=== PATIENT | female | born 1960 | race Caucasian/White ===

== ENCOUNTER → 2016-09-05 | Outpatient (CLI) | payer OTHER ==
--- NOTE | 2016-09-06 05:42 | REP ---
RIGHT OS CALCIS: TWO VIEWS. History: Pain in the right heel. Findings: Axial and lateral views demonstrate plantar and Achilles calcaneal spurring. No fracture is seen. No bony erosive change is seen. Impression: Heel spurring. No acute bony abnormality. Signed by Saran Ramos MD 09/06/2016 08:32 A
== END ==
LOC: M ED 17:15
PROVIDERS: ATTEND Physician Assistant
DX: M77.31 Calcaneal spur, right foot (principal)

== ENCOUNTER → 2019-02-16 | Outpatient (CLI) | payer MEDICARE, MEDICAID ==
[~2019-02-16] MED LIST: ALBU17IN INH; ASPI81TA52 PO; ATEN25TA PO; HYDR12CA PO; LEVO100T5 PO; LISI-1046 PO; MELO15TA28 PO; METF500T13 PO; PARO40TA2 PO; SIMV20TA2 PO; VITA-122 PO; VITA500T3 PO
[2019-02-16 13:15] LABS: BASO # 0.1 10^3/uL (0.0-0.2); BASO % 1.2 % (0.0-1.0); EOS # 0.5 10^3/uL (0.0-0.50); EOS % 4.3 % (0.0-3.0); HEMOGLOBIN 12.6 g/dl (12.0-15.5); LYMPH # 1.9 10^3/uL (1.5-4.5); LYMPH % 17.7 % (24.0-44.0); MEAN CORPUSCULAR HEMOGLOBIN 29.6 pg (27.0-33.0); MEAN CORPUSCULAR HGB CONC 32.3 g/dl (32.0-36.5); MEAN CORPUSCULAR VOLUME 91.8 fl (80.0-96.0); MONO # 1.1 10^3/uL (0.0-0.8); MONO % 10.5 % (0.0-5.0); NEUTROPHILS # 7.2 10^3/uL (1.8-7.7); NEUTROPHILS % 65.7 % (36.0-66.0); PLATELET COUNT, AUTOMATED 335 10^3/uL (150-450); RED BLOOD COUNT 4.25 10^6/uL (4.00-5.40); WHITE BLOOD COUNT 10.9 10^3/uL (4.0-10.0)
== END ==
LOC: M WUC 10:26
PROVIDERS: ATTEND Family Medicine
DX: D72.829 Elevated white blood cell count, unspecified (principal)

== ENCOUNTER → 2019-04-20 | Outpatient (CLI) | payer MEDICARE, MEDICAID ==
[~2019-04-20] MED LIST changes: +ASPI81TA85 PO; +CALC0.009 TOP; +CYAN500T8 PO; +PERC5TAB12 PO; +SILV50CR TOP; -SIMV20TA2 PO; +SIMV20TA22 PO; +TRAM50TA2 PO; +VENTAER INH; -VITA500T3 PO; +XARE10TA PO
[2019-04-20 08:29] LABS: HEMATOCRIT 36.8 % (36.0-47.0); MEAN CORPUSCULAR HGB CONC 32.6 g/dl (32.0-36.5); PLATELET COUNT, AUTOMATED 265 10^3/uL (150-450)
[2019-04-20 08:41] LABS: INR 0.98; PROTHROMBIN TIME 12.7 SECONDS (11.8-14.0)
--- NOTE | 2019-04-20 08:47 | REP ---
PA and lateral chest: There are no comparisons. The lung curtis are clear. The cardiac size is normal. The lalitha, mediastinum, and skeletal structures are unremarkable. Impression: Negative PA and lateral chest. Electronically Signed by Tato Menon MD 04/20/2019 08:38 A
[2019-04-20 08:51] LABS: ERYTHROCYTE SEDIMENTATION RATE 54 mm/hr (0-30)
[2019-04-20 08:55] LABS: ALBUMIN 3.7 GM/DL (3.2-5.2); ALT/SGPT 28 U/L (12-78); BILIRUBIN,TOTAL 0.5 MG/DL (0.2-1.0); BLOOD UREA NITROGEN 13 MG/DL (7-18); CALCIUM LEVEL 8.6 MG/DL (8.5-10.1); CARBON DIOXIDE LEVEL 31 MEQ/L (21-32); CHLORIDE LEVEL 103 MEQ/L (98-107); CREATININE FOR GFR 0.81 MG/DL (0.55-1.30); GLOMERULAR FILTRATION RATE > 60.0 (>51); GLUCOSE, FASTING 99 MG/DL (70-100); POTASSIUM SERUM 3.9 MEQ/L (3.5-5.1); SODIUM LEVEL 141 MEQ/L (136-145); TOTAL PROTEIN 7.3 GM/DL (6.4-8.2)
--- NOTE | 2019-04-20 09:18 | ECGEPIP ---
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
== END ==
LOC: M LAB 08:04
PROVIDERS: ATTEND Orthopaedic Surgery
DX: E11.9 Type 2 diabetes mellitus without complications (principal); E03.9 Hypothyroidism, unspecified

== ENCOUNTER 2019-05-14 09:15 | Inpatient (IN) | payer MEDICARE, MEDICAID ==
--- NOTE | 2019-05-02 17:47 | HPE ---
DATE OF ADMISSION: 05/14/2019 ATTENDING PHYSICIAN: Dr. Harsha Jones CHIEF COMPLAINT: Right knee pain and stiffness. HISTORY: Julia is a pleasant 58-year-old female with progressively worsening right knee pain and stiffness. She has failed to improve with conservative measures. She continues to have symptoms with weightbearing activities and activities of daily living. She has consented for an elective right total knee arthroplasty with Dr. Jones for her continued symptoms. Medical optimization pending with Dr. Jarod Baires. CURRENT MEDICATIONS: - tramadol one tablet every 12 hours as needed for pain - ProAir inhaler - lisinopril 2.5 mg daily - metformin 500 mg daily - atenolol 25 mg daily - hydrochlorothiazide 12.5 mg daily - levothyroxine 100 mcg daily - Paxil 40 mg daily - simvastatin 20 mg daily ALLERGIES: There are no known drug allergies. CHRONIC MEDICAL CONDITIONS: 1. Hypertension. 2. Hyperlipidemia. 3. Diabetes. 4. Asthma. 5. Hypothyroid. 6. Anxiety. 7. Depression. PAST SURGICAL HISTORY: None. SOCIAL HISTORY: The patient denies tobacco or alcohol use. REVIEW OF SYSTEMS: The patient denies fevers, chills, nausea, vomiting or diarrhea. She denies chest pain, shortness of breath, lightheadedness, dizziness or headaches. She denies any abdominal pain. She denies recent upper respiratory or urinary tract infection symptoms. She continues to have right knee pain with weightbearing activities and activities of daily living. PHYSICAL EXAMINATION: GENERAL: Well-nourished, well-developed female in no apparent distress. She is alert, oriented and cooperative. Mood and affect are appropriate. VITAL SIGNS: Height 5 feet, 2-1/4 inches. Weight 220.8 pounds. Temperature 97.8, blood pressure 122/64, heart rate 62, respirations 12. HEART: Regular rate and rhythm. LUNGS: Clear to auscultation bilaterally. ABDOMEN: Bowel sounds are present. Abdomen is soft and nontender to palpation. MUSCULOSKELETAL: Right knee reveals no erythema, edema or ecchymosis. There is quite a bit of tenderness to palpation along the medial joint line. The patient can extend knee to 5 degrees and flex to approximately 100 degrees. Right lower extremity strength is 5/5. No hip irritability elicited with range of motion testing. The patient's calf is soft, nontender to palpation with no palpable cords noted. She is neurovascularly intact distally. LABORATORY DATA: Chest x-ray: Negative PA and lateral chest. Right knee x-ray notable for end-stage degenerative changes. EKG: Sinus rhythm with possible left atrial enlargement and low QRS voltage in the precordial leads. Prothrombin time 12.7, INR 0.98. Complete blood count: ESR elevated at 54, WBCs 9, RBCs 4, hemoglobin 12, hematocrit 36.8, platelets 265. Comprehensive metabolic profile: Fasting glucose 99, BUN 13, creatinine 0.81, GFR greater than 60, sodium 141, potassium 3.9, chloride 103, carbon dioxide 31, anion gap decreased at 7, calcium 8.6, AST 23, ALT 28, alkaline phosphatase 82, total bilirubin 0.5, total protein 7.3, albumin 3.7, albumin-globulin ratio 1.03. IMPRESSION: Right knee degenerative arthritis with x-rays notable for end-stage degenerative changes. PLAN: The patient has consented for an elective right total knee arthroplasty with Dr. Jones for her continued symptoms. Medical optimization pending with Dr. Jarod Baires. MARK
[2019-05-14] VITALS (7 sets, daily range): BP systolic 115–122; BP diastolic 69–78
[~2019-05-14] VITALS: Ht 157.5 cm; Wt 98.8 kg
[~2019-05-14 09:15] MED LIST changes: +ACETAMINOPHEN 500 MG TAB PO ONE; -PERC5TAB12 PO; +SIMV20TA2 PO; -SIMV20TA22 PO; -XARE10TA PO; +ceFAZolin SOD 1 GM in D5W MINI-BAG PLUS 50 ML IV ONE
[2019-05-14] MEDS ORDERED: dexameTHASONE 10 MG/1 ML VIAL PRES.FREE (J1100) ONE (09:16)
[2019-05-14] MEDS ORDERED: ROPIvacaine 0.5% 30 ML INJECTION (J2795 PER 1MG) ONE (09:16)
[2019-05-14] MEDS ORDERED: LIDOCAINE 1% MDV 20ML VIAL ONE (09:16)
[2019-05-14] MEDS ORDERED: TRANEXAMIC ACID 100 MG/ML 10ML VIAL As Ordered ONE (11:15)
[2019-05-14] MEDS ORDERED: EPINEPHrine INJ 1 MG/ML 1ML AMP As Ordered ONE (11:16)
[2019-05-14] MEDS ORDERED: ceFAZolin 1GM INJ (J0690 PER 500MG) As Ordered ONE (11:16)
[2019-05-14] MEDS ORDERED: BUPIVACAINE LIPOSOME/PF 1.3% 20ML VIAL (13.3MG/ML)(EXPAREL)(C9290 PER1MG) As Ordered ONE (11:17)
[2019-05-14] MEDS ORDERED: BUPIVACAINE HCL 0.25% 10 ML VIAL As Ordered ONE (11:17)
[2019-05-14] MEDS ORDERED: fentaNYL 100 MCG/2 ML INJECTION (J3010) As Ordered ONE ×2 (11:22→12:52)
[2019-05-14] MEDS ORDERED: MIDAZOLAM INJ 2 MG/2 ML VIAL (J2250) As Ordered ONE ×2 (11:22→12:52)
[2019-05-14] MEDS ORDERED: fentaNYL 100 MCG/2 ML INJECTION (J3010) IV PRN ×2 (12:30→15:15)
[2019-05-14] MEDS ORDERED: MIDAZOLAM INJ 2 MG/2 ML VIAL (J2250) IV PRN (12:30)
[2019-05-14] MEDS ORDERED: PHENYLephrine HCL 500 MCG/5 ML (100MCG/ML) SYRINGE (J2370) As Ordered ONE (12:52)
[2019-05-14] MEDS ORDERED: PROPOFOL 200 MG/20 ML VIAL As Ordered ONE (12:52)
[2019-05-14] MEDS ORDERED: HYDROMORPHONE HCL 0.5 MG/ 0.5 ML SYRINGE (J1170 PER 1) IV PRN (15:15)
[2019-05-14] MEDS: LR 1,000 ML IV SCH (15:15)
[2019-05-14] MEDS ORDERED: PERCOCET 5MG/325MG TAB PO PRN (15:15)
[2019-05-14] MEDS ORDERED: ONDANSETRON 4MG/2ML VIAL (J2405) IV PRN (15:15)
[2019-05-14] MEDS ORDERED: ACETAMINOPHEN TAB 650MG DOSE (2X325MG) PO PRN (15:15)
[2019-05-14] MEDS ORDERED: LR 1,000 ML IV SCH (15:15)
[2019-05-14] MEDS ORDERED: FLEET ENEMA PR PRN (15:15)
--- NOTE | 2019-05-14 15:22 | REP ---
RIGHT KNEE, TWO VIEWS: Two views of the right knee are performed. Total knee prosthesis appears to be in good position. The structures are well aligned and intact. Metallic skin familia are seen anteriorly. Electronically Signed by Tato Zamudio MD 05/14/2019 04:24 P
[2019-05-14] MEDS: HYDROMORPHONE HCL 0.5 MG/ 0.5 ML SYRINGE (J1170 PER 1) IV PRN (20:51)
[2019-05-15] MEDS: HYDROMORPHONE HCL 0.5 MG/ 0.5 ML SYRINGE (J1170 PER 1) IV PRN ×2 (00:20→06:09)
[2019-05-15 02:00] VITALS: BP 133/80
[2019-05-15] MEDS: LR 1,000 ML IV SCH (03:45)
[2019-05-15 06:00] VITALS: BP 133/78
[2019-05-15] MEDS ORDERED: LEVOTHYROXINE 100MCG TABLET (0.1MG) PO SCH (06:00)
[2019-05-15] MEDS ORDERED: PERCOCET 5MG/325MG TAB PO PRN (06:15)
[2019-05-15] MEDS ORDERED: XARE10TA PO (06:19)
[2019-05-15] MEDS ORDERED: PERC5TAB12 PO (06:19)
[2019-05-15 06:35] LABS: HEMATOCRIT 33.6 % (36.0-47.0); HEMOGLOBIN 10.8 g/dl (12.0-15.5); MEAN CORPUSCULAR HEMOGLOBIN 29.7 pg (27.0-33.0); MEAN CORPUSCULAR HGB CONC 32.1 g/dl (32.0-36.5); MEAN CORPUSCULAR VOLUME 92.3 fl (80.0-96.0); PLATELET COUNT, AUTOMATED 229 10^3/uL (150-450); RED BLOOD COUNT 3.64 10^6/uL (4.00-5.40); WHITE BLOOD COUNT 12.4 10^3/uL (4.0-10.0)
[2019-05-15 06:53] LABS: BLOOD UREA NITROGEN 12 MG/DL (7-18); CALCIUM LEVEL 8.6 MG/DL (8.5-10.1); CARBON DIOXIDE LEVEL 30 MEQ/L (21-32); CHLORIDE LEVEL 104 MEQ/L (98-107); CREATININE FOR GFR 0.93 MG/DL (0.55-1.30); GLOMERULAR FILTRATION RATE > 60.0 (>51); GLUCOSE, FASTING 176 MG/DL (70-100); POTASSIUM SERUM 4.3 MEQ/L (3.5-5.1); SODIUM LEVEL 141 MEQ/L (136-145)
[2019-05-15] MEDS: PERCOCET 5MG/325MG TAB PO PRN ×2 (08:33→15:04)
[2019-05-15] MEDS ORDERED: MOM 30ML SUSPENSION UDC PO SCH (09:00)
[2019-05-15] MEDS ORDERED: LISINOPRIL *2.5 MG* TAB PO SCH (09:00)
[2019-05-15] MEDS ORDERED: SIMVASTATIN 20 MG TAB PO SCH (09:00)
[2019-05-15] MEDS ORDERED: CALCIPOTRIENE CREAM 0.005% 60GM TOP PRN (09:00)
[2019-05-15] MEDS ORDERED: hydroCHLOROthiazide 12.5 MG CAPSULE PO SCH (09:00)
[2019-05-15] MEDS ORDERED: CYANOCOBALAMIN 500 MCG TAB PO SCH (09:00)
[2019-05-15] MEDS ORDERED: MIRALAX *UNIT DOSE* 17GM PACKET PO SCH (09:00)
[2019-05-15] MEDS ORDERED: ATENOLOL 25 MG TAB PO SCH (09:00)
[2019-05-15] MEDS ORDERED: SILVER SULFADIAZINE 1% CR 50 GM JAR TOP PRN (09:00)
[2019-05-15] MEDS ORDERED: VITAMIN D 1,000 INTERNATIONAL UNITS TABLET PO SCH (09:00)
[2019-05-15] MEDS ORDERED: GLUCAGON FOR INJ 1 MG VIAL (J1610) SC PRN (09:00)
[2019-05-15] MEDS ORDERED: GLUCOSE 4 GM CHEW TABLET PO PRN (09:00)
[2019-05-15] MEDS ORDERED: PARoxetine 20 MG TAB PO SCH (09:00)
[2019-05-15] MEDS ORDERED: DEXTROSE 50% 50 ML SYRINGE IV PRN (09:00)
[2019-05-15] MEDS ORDERED: ALBUTEROL 90 MCG/ACT 8GM HFA INHALER INH PRN (09:00)
[2019-05-15 10:17] VITALS: BP 135/80
--- NOTE | 2019-05-15 11:03 | RO ---
DATE OF PROCEDURE: 05/14/2019 PREOPERATIVE DIAGNOSIS: Right knee degenerative arthritis. POSTOPERATIVE DIAGNOSIS: Right knee degenerative arthritis. PROCEDURE: Right total knee arthroplasty using a size 5 ATTUNE cruciate retaining femoral component with a size 4 tibial tray and 5 mm rotating platform polyethylene insert and a 32 mm polyethylene button. All the components were cemented. The prosthesis was made by [employer]. It was an ATTUNE knee. SURGEON: Gris Jones MD BAND PRESSER: Dianne Baires PA-C ANESTHESIA: Right femoral nerve block with a spinal. COMPLICATIONS: None. ESTIMATED BLOOD LOSS: 20 mL. SPECIMENS: Joint surface. PROCEDURE: Antibiotics were given intravenously preoperatively. Then a successful right femoral nerve block and then spinal anesthetic was induced. The tourniquet was placed on the right upper thigh and not inflated. The right lower extremity was carefully prepped and draped in the usual sterile fashion. The leg was elevated and after appropriate time out, the tourniquet was inflated to 250 mmHg. A longitudinal incision was made for a medial parapatellar approach to the knee. Bovie cautery was used to coagulate the crossing vessels. Subperiosteal dissection around the proximal, medial and lateral tibial plateaus was performed. The patella was everted and the knee was flexed. The anterior cruciate ligament (ACL) was debrided. Drill placed down the center of femoral canal, followed by the intramedullary arina, the distal femoral cutting jig set at 9 mm resection level at 5 degree valgus for a right knee. It was pinned into position and distal femoral cut was performed. AP sizing jig measured for a size 5. 3 degrees of external rotation were dialed in and then the 3 degree external rotation pins were placed followed by the four-in-one block, and then the anterior, posterior and chamfer cuts were performed taking great care to protect the surrounding soft tissues. The notch osteotomy was performed after setting the jib into position and then we exposed the proximal tibia. We used the extramedullary alignment jig to estimate being parallel to the mechanical axis, referenced off the medial tibial condyle at 4 mm resection level. The block was pinned in position and secondary check with the extramedullary arina confirmed we appeared to be parallel to the mechanical axis. Proximal tibial osteotomy was performed. We then used a lamina [place] k[place] maori medially to perform a completion lateral meniscectomy and debridement of the posterolateral osteophytes. I then placed the lamina ka[place] maori laterally and performed a completion medial meniscectomy and debridement of the posteromedial osteophytes. The spacer block was applied and it was a bit snug at 6 mm, both in flexion and in extension. Thus I did think that we could take an additional 2 mm from the proximal tibia given also that the initial cut was actually quite thin. Thus, we reapplied the block and took and additional 2 mm. The 6 mm spacer block fit nicely with good stability to varus valgus and AV stress testing. The proximal tibia was exposed and sized for a #4 tibial tray which was pinned into position followed by the reamer and broach, and the trial 6 mm insert was applied. Then the trial femoral component was applied. She was a bit snug in flexion however and I did release some of the PCL and then we elected to try the 5 mm insert, and that actually gave her better flexion and extension, still remaining with good stability to varus valgus stress testing both in flexion and in extension. Thus at this point, I held the knee in extension, everted the patella, and performed a patellar osteotomy and sized for a 32 button. The lug holes were drilled and the trial was placed. Patellofemoral tracking was anatomic. We drilled the lug holes for the femur. Then we removed all the trial components and then placed Exparel in the subperiosteal tissues of the distal femur and the proximal tibia. At this point, Miss Dianne Baires mixed the cement on the back table as I prepared the bony surfaces for cementing with a copious amount of pulsatile lavage irrigant solution. Once all of the bony surfaces were thoroughly dried we cemented the tibial tray and removed excess cement, placed the tibial polyethylene, and then cemented the femoral component removing excess cement, and then brought the knee into extension, everted the patella and cemented the patellar button and removed excess cement and held the button with a clamp until the cement hardened with the knee in full extension. As we were awaiting this, we copiously pulsatile lavage irrigated out the knee joint until the cement had hardened. Ms. Dianne Baires was also critical to the success of this difficult operation given the high body mass index (BMI) of over 40, by helping with appropriate soft tissue retraction, helped to manipulate the knee as necessary, helped to mix the cement, helped to close the wound, and helped to prepare the patient amongst many other tasks to allow me to perform the operation smoothly, efficiently and safely. I then placed tranexamic acid in the knee joint and then began closing the arthrotomy with two #1 PDS sutures. Then the medial parapatellar area was closed with a #1 PDS sutures in the apex and one at the medial parapatellar area and then a running double armed #1 STRATAFIX was used to close the capsule. Then the tourniquet was released. We irrigated between layers, closed the deep subdermal tissues with interrupted #2-0 PDS sutures. Skin was closed with familia, covered by an Optifoam and a dry sterile bulky dressing. She was then transferred to the recovery room in stable condition. There were no intraoperative complications.
--- NOTE | 2019-05-15 11:21 | CR.PDOC ---
General Date of Consultation: May 15, 2019 Consultation CONSULT FOR: Orthopedic surgery REASON FOR CONSULT: Medical management HISTORY OF PRESENT ILLNESS: This is a 58-year-old female with long-standing history of knee arthritis who has failed outpatient supportive measures she has been tried on numerous medications without improvement in her symptoms. She did present yesterday to the hospital for elective total knee arthroplasty. I was made aware of this consultation a few months ago this morning. At this time the patient tells me that her knee pain is improving she was able to up and ambulate on it this a.m. to the bathroom and she is feeling well. Otherwise patient denies weight loss, hair loss, headache, visual changes, chest pain, shortness of breath, cough, nausea, vomiting, diarrhea, abdominal pain, muscle aches, worsening arthritis, change in mood PAST MEDICAL HISTORY: 1. Osteoarthritis. 2. Hypertension. 3. Asthma. 4. Dyslipidemia 5. Anxiety depression 6. Diabetes mellitus 7. Hypothyroidism HOME MEDICATIONS: Please see below. ALLERGIES: Please see below PAST SURGICAL HISTORY: 1. Plate and pin implant in the left foot. 2. Right rotator cuff surgery. 3. Bilateral carpal tunnel release. SOCIAL HISTORY: Lives with: Alone, Employment: Disability, Tobacco use: Never smoker. ETOH: rarely last drink New Year's, Illicit drug use: Denies, CODE STATUS: Full code FAMILY HISTORY:Reviewed and noncontributory REVIEW OF SYSTEMS: 10 systems reviewed and negative other than HPI PHYSICAL EXAMINATION: VITAL SIGNS: Please see below GENERAL: Pleasant obese female sitting up in bed awake alert oriented speaking in complete sentences no acute distress HEENT: Moist mucous membranes no elevation in CVP CARDIOVASCULAR: S1 S2 regular no additional heart sounds appreciated. RESPIRATORY: Clear to auscultation bilaterally. ABDOMINAL: Bowel sounds present abdomen soft and nontender, obese EXTREMITIES: No clubbing cyanosis or edema, dressing is clean dry and intact NEUROLOGICAL: Spontaneously moves all 4 extremities cranial 2 through 12 grossly intact no gross focal deficits appreciated some decreased range of motion of the right lower extremity secondary to pain PSYCHOLOGICAL: Appropriate LABORATORY DATA: See below. MICROBIOLOGY: Please see below. IMAGING: Knee x-ray:Total knee prosthesis appears to be in good position. The structures are well aligned and intact. Metallic skin familia are seen anteriorly. ASSESSMENT & PLAN: This is a 58-year-old female postop day 1 for elective right total knee arthroplasty secondary to osteoarthritis. PROBLEMS: 1. Right total knee arthroplasty: Anticoagulation pain control perioperative management as per orthopedic surgery patient appears to tolerated procedure quite well. 2. Diabetes mellitus: We'll hold her home metformin and placed on sliding scale she is on a consistent carb diet 3. Asthma: Stable she is at her baseline respiratory status will provide with when necessary albuterol MDI 4. Hypertension: Continue with atenolol and hydrochlorothiazide and lisinopril with holding parameters for blood pressure is normotensive at this time 5. Mood disorder: Continue with Paxil 6. Dyslipidemia: Continue with statin 7. Hypothyroidism: Continue with Synthroid 8. Vitamin deficiencies: Continue with her home supplementations of vitamin D as well as vitamin B12 DVT PROPHYLAXIS: Anticoagulation as per orthopedic surgery Thank you for this interesting consult, we will continue to follow along with you. Please Vocera secure text or call with any specific questions. Vital Signs/I&O Vital Signs Date Time Temp Pulse Resp B/P (MAP) Pulse Ox O2 Delivery O2 Flow Rate FiO2 05/15/19 08:33 18 05/15/19 06:00 97.5 83 133/78 (96) 98 2.0 I&O- Last 24 Hours up to 6 AM 05/15/19 06:00 Intake Total 2585 ml Output Total 320 ml Balance 2265 ml Laboratory Data Labs 24H Laboratory Tests 2 05/14/19 10:55: Bedside Glucose (Misc Panel) 96 05/15/19 06:02: Nucleated Red Blood Cells % (auto) 0.0, Anion Gap 7L, Glomerular Filtration Rate > 60.0, Blood Urea Nitrogen 12, Creatinine 0.93, Sodium Level 141, Potassium Level 4.3, Chloride Level 104, Carbon Dioxide Level 30, Calcium Level 8.6 CBC/BMP Laboratory Tests 05/15/19 06:02 Red Blood Count 3.64 L, Mean Corpuscular Volume 92.3, Mean Corpuscular Hemoglobin 29.7, Mean Corpuscular Hemoglobin Concent 32.1, Red Cell Distribution Width 14.1, Calcium Level 8.6 Allergies Coded Allergies: No Known Allergies (Unverified , 05/14/19) Home Medications Scheduled Atenolol (Atenolol) 25 Mg Tab, 25 MG PO QAM, #90 (Reported) Cholecalciferol (Vitamin D3) (Vitamin D3) 1,000 Unit Tab, 1,000 MG PO QAM, #30 (Reported) Cyanocobalamin (Vitamin B-12) (Vitamin B-12) 500 Mcg Tab, 500 MCG PO QAM, #90 (Reported) Hydrochlorothiazide (Hydrochlorothiazide) 12.5 Mg Cap, 12.5 MG PO QAM, #90 (Reported) Levothyroxine Sodium (Levothyroxine Sodium) 100 Mcg Tab, 100 MCG PO QAM, #30 (Reported) Lisinopril (Lisinopril) 2.5 Mg Tab, 2.5 MG PO QAM, #90 (Reported) Metformin HCl (Metformin HCl) 500 Mg Tab, 500 MG PO BID, #30 (Reported) Paroxetine HCl (Paroxetine HCl) 40 Mg Tab, 40 MG PO QAM, #90 (Reported) Rivaroxaban (Xarelto) 10 Mg Tablet, 10 MG PO DAILY for 12 Days, #12 Simvastatin (Simvastatin) 20 Mg Tab, 20 MG PO QAM, #30 (Reported) Scheduled PRN Albuterol Sulfate (Ventolin Hfa) 18 Gm Hfa.aer.ad, 2 PUFF INH Q4-6HP PRN for wheezing for 30 Days, #1 (Reported) Calcipotriene (Calcipotriene) 0.005% Cream..g., 1 APLCT TOP BID PRN for ear for 30 Days, #120 (Reported) Oxycodone HCl/Acetaminophen (Percocet 5-325 mg Tablet) 1 Each Tablet, 1 TAB PO Q4H PRN for PAIN, #30 Silver Sulfadiazine (Ssd) 50 Gm Cream..g., 1 APLCT TOP DAILY PRN for RASH, #50 (Reported) Tramadol HCl (Tramadol HCl) 50 Mg Tablet, 50 MG PO for pain, (Reported) BREEZY NELSON MD May 15, 2019 11:21
[2019-05-15] MEDS ORDERED: HumaLOG INSULIN (NovoLOG) PER UNIT SC SCH ×2 (12:00→21:00)
[2019-05-15 14:00] VITALS: BP 124/59
[2019-05-15] MEDS ORDERED: RIVAROXABAN 10 MG TAB (XARELTO) PO SCH (18:00)
== END 2019-05-15 16:05 | disposition home health service (06) | DRG 470 ==
LOC: M SDC 09:15 → EDSTATUS 13:00 → M MS5PR 15:45 → M SDC 05-15 07:52 → M MS5PR 05-15 07:52 → M SDC 05-15 16:05
PROVIDERS: ADMIT Orthopaedic Surgery; ATTEND Orthopaedic Surgery
PROC: 0SRC0J9 Replacement of Right Knee Joint with Synthetic Substitute, Cemented, Open Approach (ICD-10-PCS; principal; 2019-05-14 12:45)
DX: M17.11 Unilateral primary osteoarthritis, right knee (principal); I10 Essential (primary) hypertension; E78.5 Hyperlipidemia, unspecified; E11.9 Type 2 diabetes mellitus without complications; J45.909 Unspecified asthma, uncomplicated; F41.9 Anxiety disorder, unspecified; F32.9 Major depressive disorder, single episode, unspecified; Z79.899 Other long term (current) drug therapy; E03.9 Hypothyroidism, unspecified; E55.9 Vitamin D deficiency, unspecified; E53.8 Deficiency of other specified B group vitamins

== ENCOUNTER → 2019-10-16 | Outpatient (CLI) | payer MEDICARE, MEDICAID ==
[~2019-10-16] MED LIST changes: -ACETAMINOPHEN 500 MG TAB PO ONE; +PERC5TAB12 PO; -SIMV20TA2 PO; +SIMV20TA22 PO; +XARE10TA PO; -ceFAZolin SOD 1 GM in D5W MINI-BAG PLUS 50 ML IV ONE
[2019-10-16 11:08] LABS: BASO # 0.1 10^3/uL (0.0-0.2); BASO % 0.9 % (0.0-1.0); EOS # 0.4 10^3/uL (0.0-0.5); EOS % 5.3 % (0.0-3.0); HEMATOCRIT 35.7 % (36.0-47.0); HEMOGLOBIN 11.7 g/dl (12.0-15.5); LYMPH # 1.8 10^3/uL (1.5-5.0); LYMPH % 23.2 % (24.0-44.0); MEAN CORPUSCULAR HEMOGLOBIN 28.2 pg (27.0-33.0); MEAN CORPUSCULAR HGB CONC 32.8 g/dl (32.0-36.5); MONO # 0.9 10^3/uL (0.0-0.8); NEUTROPHILS # 4.6 10^3/uL (1.5-8.5); NEUTROPHILS % 59.3 % (36.0-66.0); PLATELET COUNT, AUTOMATED 283 10^3/uL (150-450); RED BLOOD COUNT 4.15 10^6/uL (4.00-5.40); WHITE BLOOD COUNT 7.8 10^3/uL (4.0-10.0)
[2019-10-16 11:43] LABS: ALBUMIN 3.6 GM/DL (3.2-5.2); ALT/SGPT 23 U/L (12-78); BILIRUBIN,TOTAL 0.3 MG/DL (0.2-1.0); BLOOD UREA NITROGEN 13 MG/DL (7-18); CALCIUM LEVEL 8.8 MG/DL (8.5-10.1); CARBON DIOXIDE LEVEL 30 MEQ/L (21-32); CHLORIDE LEVEL 103 MEQ/L (98-107); CHOLESTEROL LEVEL 156 MG/DL (<200); CREATININE FOR GFR 0.87 MG/DL (0.55-1.30); GLOMERULAR FILTRATION RATE > 60.0 (>51); GLUCOSE, FASTING 106 MG/DL (70-100); HDL CHOLESTEROL 48 MG/DL (>40); LDL CHOLESTEROL 84 MG/DL (<100); NON-HDL-C 108 MG/DL; POTASSIUM SERUM 4.1 MEQ/L (3.5-5.1); SODIUM LEVEL 138 MEQ/L (136-145); THYROID STIMULATING HORMONE 0.796 uIU/ML (0.358-3.740); TOTAL PROTEIN 7.6 GM/DL (6.4-8.2); TRIGLYCERIDES LEVEL 118 MG/DL (<150)
[2019-10-16 12:04] LABS: HEMOGLOBIN A1c 6.2 %
== END ==
LOC: M LAB 10:34
PROVIDERS: ATTEND Family Medicine
DX: E03.9 Hypothyroidism, unspecified (principal); I10 Essential (primary) hypertension; E11.9 Type 2 diabetes mellitus without complications; E78.5 Hyperlipidemia, unspecified

== ENCOUNTER → 2020-01-15 | Outpatient (CLI) | payer MEDICARE, MEDICAID ==
[~2020-01-15] MED LIST changes: -LISI-1046 PO; +LISI2.5T2 PO; +VITAD1000T PO
--- NOTE | 2020-01-15 16:29 | REP ---
TRIPLE PHASE BONE SCAN KNEES: Following the intravenous administration of 22 millicuries technetium 99m MDP, patient's knees are imaged in the flow phase and the anterior and posterior projections. There is moderate increased blood flow to the region of the right knee. Immediate blood pool and 3-hour delayed images performed of the knees in various projections. Photopenic right knee prosthesis is noted. There is moderate increased blood pooling and delayed activity in the distal femur and proximal tibia adjacent to the photopenic prosthetic components. The uptake is greater than what would expected in a routine postoperative patient. The findings suggest either loosening or infection. Electronically Signed by Tato Zamudio MD 01/15/2020 04:57 P
== END ==
LOC: M RAD 07:39
PROVIDERS: ATTEND Orthopaedic Surgery
DX: Z47.1 Aftercare following joint replacement surgery (principal)

== ENCOUNTER 2020-01-17 16:39 | Inpatient (IN) | payer MEDICARE, MEDICAID ==
[~2020-01-17] VITALS: Ht 160 cm; Wt 79.7 kg
[~2020-01-17 16:39] MED LIST changes: -VITAD1000T PO
[2020-01-17] MEDS ORDERED: LIDOCAINE 1% MDV 20ML VIAL SC ONE (17:15)
[2020-01-17 18:01] LABS: SOURCE, BODY FLUID URIC ACID RT KNEE; URIC ACID, BODY FLUID 4.3 MG/DL (NOT ESTABLISHED)
[2020-01-17 18:22] LABS: CRYSTALS, BODY FLUID NONE SEEN (NONE SEEN); SOURCE, BODY FLUID RT KNEE; SOURCE, BODY FLUID CRYSTALS RT KNEE; SYNOVIAL FLUID COLOR PINK (YELLOW)
[2020-01-17 18:31] LABS: BASO # 0.1 10^3/uL (0.0-0.2); BASO % 0.8 % (0.0-1.0); EOS # 0.1 10^3/uL (0.0-0.5); HEMATOCRIT 30.6 % (36.0-47.0); HEMOGLOBIN 9.8 g/dl (12.0-15.5); LYMPH # 1.3 10^3/uL (1.5-5.0); LYMPH % 16.5 % (24.0-44.0); MEAN CORPUSCULAR HEMOGLOBIN 27.7 pg (27.0-33.0); MEAN CORPUSCULAR VOLUME 86.4 fl (80.0-96.0); MONO # 0.8 10^3/uL (0.0-0.8); MONO % 10.1 % (0.0-5.0); NEUTROPHILS # 5.5 10^3/uL (1.5-8.5); NEUTROPHILS % 71.1 % (36.0-66.0); PLATELET COUNT, AUTOMATED 461 10^3/uL (150-450); RED BLOOD COUNT 3.54 10^6/uL (4.00-5.40); WHITE BLOOD COUNT 7.7 10^3/uL (4.0-10.0)
--- NOTE | 2020-01-17 18:46 | HPEPDOC ---
General Date of Admission 01/17/20 Date of Service: January 17, 2020 Chief Complaint The patient is a 59-year-old female admitted with a reason for visit of R Knee Pain. Source: Patient Exam Limitations: No limitations Timing/Duration: Day(s) Severity: Moderate History of Present Illness Patient is 59 years old female with past medical history osteoarthritis, diabetes type 2, hyperlipidemia presented to the hospital with right knee pain. Patient stated that for past few days she's been having increased right knee pain with warm sensation. She states that pain increased when she walked. Orthopedic surgeon did knee arthrocentesis today, plan to proceed with surgery on 01/19/20. In emergency room patient was found to have no leukocytosis, hemoglobin of 9.8. Knee fluid showed 208,000 leukocytes count. Patient denied fever, chills, nausea, vomiting, chest pain, palpitations diarrhea or dysuria Home Medications Scheduled Atenolol (Atenolol) 25 Mg Tab, 25 MG PO QAM, (Reported) Cholecalciferol (Vitamin D3) (Vitamin D3) 1,000 Unit Tab, 1,000 MG PO QAM, (Reported) Cyanocobalamin (Vitamin B-12) (Vitamin B-12) 500 Mcg Tab, 500 MCG PO QAM, (Reported) Hydrochlorothiazide (Hydrochlorothiazide) 12.5 Mg Cap, 12.5 MG PO QAM, (Reported) Levothyroxine Sodium (Levothyroxine Sodium) 100 Mcg Tab, 100 MCG PO QAM, (Report ed) Lisinopril (Lisinopril) 2.5 Mg Tab, 2.5 MG PO QAM, (Reported) Metformin HCl (Metformin HCl) 500 Mg Tab, 500 MG PO BID, (Reported) Paroxetine HCl (Paroxetine HCl) 40 Mg Tab, 40 MG PO QAM, (Reported) Rivaroxaban (Xarelto) 10 Mg Tablet, 10 MG PO DAILY Simvastatin (Simvastatin) 20 Mg Tab, 20 MG PO QAM, (Reported) Scheduled PRN Albuterol Sulfate (Ventolin Hfa) 18 Gm Hfa.aer.ad, 2 PUFF INH Q4-6HP PRN for wheezing, (Reported) Calcipotriene (Calcipotriene) 0.005% Cream..g., 1 APLCT TOP BID PRN for ear, (Reported) Silver Sulfadiazine (Ssd) 50 Gm Cream..g., 1 APLCT TOP DAILY PRN for RASH, (Reported) Tramadol HCl (Tramadol HCl) 50 Mg Tablet, 50 MG PO for pain, (Reported) Allergies Coded Allergies: No Known Allergies (Unverified , 05/14/19) Past Medical History Medical History 1. Hypertension. 2. Hyperlipidemia. 3. Diabetes. 4. Asthma. 5. Hypothyroid. 6. Anxiety. 7. Depression. Surgical History 1. Plate and pin implant in the left foot. 2. Right rotator cuff surgery. 3. Bilateral carpal tunnel release Family History I personally reviewed family history AND found not pertinent Social History * Smoker: Denies Alcohol: Denies Drugs: denies A-FIB/CHADSVASC A-FIB History Current/History of A-Fib/PAF?: No Current PO Anticoag Therapy: No Review of Systems Constitutional: Denies: Chills, Fever Eyes: Denies: Pain, Vision change ENT: Denies: Head Aches Skin: Reports: Other (mild erythema of right knee); Denies: Rash Pulmonary: Denies: Dyspnea, Cough Cardiovascular: Denies: Chest Pain Gastrointestinal: Denies: Nausea, Vomiting Genitourinary: Denies: Dysuria, Frequency Hematologic: Denies: Bruising, Bleeding Excessively Endocrine: Denies: Polydipsia Musculoskeletal: Reports: Leg Pain (right knee pain); Denies: Neck Pain, Back Pain Neurological: Denies: Weakness Psych: Reports: Mood Normal Physical Examination General Exam: Positive: Alert, Cooperative Eye Exam: Positive: PERRLA ENT Exam: Positive: Atraumatic Neck Exam: Positive: Supple; Negative: JVD Chest Exam: Positive: Clear to auscultation Heart Exam: Positive: Rate Normal Telemetry: Positive: No significant arrhythmia Abdomen Exam: Positive: Normal bowel sounds Extremity Exam: Positive: Tenderness, Swelling (right knee); Negative: Clubbing, Cyanosis Skin Exam: Positive: Other skin issue (mild erythema over right knee) Neuro Exam: Positive: Strength at 5/5 X4 ext, Cranial Nerves 3-12 NL Vital Signs Vital Signs Date Time Temp Pulse Resp B/P (MAP) Pulse Ox O2 Delivery O2 Flow Rate FiO2 01/17/20 16:40 96.9 84 18 107/80 (89) 96 Room Air Laboratory Data Labs 24H Laboratory Tests 2 01/17/20 17:25: Body Fluid WBC (Auto) 535791A, Body Fluid RBC (Auto) 100, Body Fluid Mononuclear Cells % Auto 5.6H, Fluid Polymorphonuclear Cell % Auto 94.4H, Body Fluid Crystals NONE SEEN, Body Fluid Crystal Source RT KNEE, Body Fluid Uric Acid 4.3, Body Fluid Uric Acid Source RT KNEE, Synovial Fluid Source RT KNEE, Synovial Fluid Color PINK, Synovial Fluid Appearance TURBID 01/17/20 18:16: Immature Granulocyte % (Auto) 0.5, Neutrophils (%) (Auto) 71.1H, Lymphocytes (%) (Auto) 16.5L, Monocytes (%) (Auto) 10.1H, Eosinophils (%) (Auto) 1.0, Basophils (%) (Auto) 0.8, Neutrophils # (Auto) 5.5, Lymphocytes # (Auto) 1.3L, Monocytes # (Auto) 0.8, Eosinophils # (Auto) 0.1, Basophils # (Auto) 0.1, Nucleated Red Blood Cells % (auto) 0.0 CBC/BMP Laboratory Tests 01/17/20 18:16 Microbiology Microbiology 01/17/20 Blood Culture, Received Pending 01/17/20 Gram Stain - Preliminary, Resulted 01/17/20 Body Fluid Culture, Resulted Pending Assessment/Plan Patient is 59 years old female with past medical history osteoarthritis, diabetes type 2, hyperlipidemia presented to the hospital with right knee pain. Patient stated that for past few days she's been having increased right knee pain with warm sensation. She states that pain increased when she walked. Orthopedic surgeon did knee arthrocentesis today, plan to proceed with surgery on 01/19/20. In emergency room patient was found to have no leukocytosis, hemoglobin of 9.8. Knee fluid showed 208,000 leukocytes count. Patient denied fever, chills, nausea, vomiting, chest pain, palpitations diarrhea or dysuria Problems (1) Infection of knee Status: Acute Problem Text: Vancomycin IV, cefepime IV as empiric treatment IV fluid Ortho team will proceed with surgery on 01/19/20 Await knee culture Await blood culture (2) Diabetes mellitus Status: Chronic Problem Text: Insulin sliding scale Diabetes diet (3) Hypertension Status: Chronic Problem Text: Blood pressures under control Continue home meds Plan / VTE VTE Prophylaxis Ordered?: Yes RICARDO DUVALL DO January 17, 2020 18:46
[2020-01-17 18:49] LABS: SOURCE, BODY FLUID GLUCOSE RT KNEE
[2020-01-17 18:50] LABS: ALBUMIN 2.7 GM/DL (3.2-5.2); ALT/SGPT 8 U/L (12-78); BILIRUBIN,TOTAL 0.2 MG/DL (0.2-1.0); BLOOD UREA NITROGEN 19 MG/DL (7-18); CALCIUM LEVEL 8.4 MG/DL (8.5-10.1); CARBON DIOXIDE LEVEL 30 MEQ/L (21-32); CHLORIDE LEVEL 100 MEQ/L (98-107); CREATININE FOR GFR 0.92 MG/DL (0.55-1.30); GLOMERULAR FILTRATION RATE > 60.0 (>51); GLUCOSE, FASTING 108 MG/DL (70-100); POTASSIUM SERUM 3.4 MEQ/L (3.5-5.1); SODIUM LEVEL 136 MEQ/L (136-145); TOTAL PROTEIN 8.1 GM/DL (6.4-8.2)
[2020-01-17] MEDS ORDERED: VITAD1000T PO (18:58)
[2020-01-17] MEDS ORDERED: ASPI81TA85 PO (18:58)
[2020-01-17 19:14] LABS: ERYTHROCYTE SEDIMENTATION RATE 105 mm/hr (0-30)
[2020-01-17] MEDS ORDERED: GLUCAGON INJ 1MG VIAL SC PRN (19:15)
[2020-01-17] MEDS ORDERED: POTASSIUM CHLORIDE 10 MEQ SR TABLET PO ONE (19:15)
[2020-01-17] MEDS ORDERED: GLUCOSE 4GM CHEW TABLET PO PRN (19:15)
[2020-01-17] MEDS ORDERED: ALBUTEROL 90 MCG/ACT 8GM HFA INHALER INH PRN (19:15)
[2020-01-17] MEDS ORDERED: DEXTROSE 50% 50 ML SYRINGE IV PRN (19:15)
[2020-01-17 19:20] LABS: HEMATOCRIT 32.3 % (36.0-47.0); MEAN CORPUSCULAR HEMOGLOBIN 26.7 pg (27.0-33.0); MEAN CORPUSCULAR VOLUME 86.4 fl (80.0-96.0); PLATELET COUNT, AUTOMATED 441 10^3/uL (150-450); RED BLOOD COUNT 3.74 10^6/uL (4.00-5.40); WHITE BLOOD COUNT 7.7 10^3/uL (4.0-10.0)
[2020-01-17 19:44] LABS: BLOOD UREA NITROGEN 20 MG/DL (7-18); CALCIUM LEVEL 8.6 MG/DL (8.5-10.1); CARBON DIOXIDE LEVEL 28 MEQ/L (21-32); CHLORIDE LEVEL 101 MEQ/L (98-107); CREATININE FOR GFR 0.83 MG/DL (0.55-1.30); GLOMERULAR FILTRATION RATE > 60.0 (>51); GLUCOSE, FASTING 102 MG/DL (70-100); POTASSIUM SERUM 3.9 MEQ/L (3.5-5.1); SODIUM LEVEL 136 MEQ/L (136-145)
[2020-01-17] MEDS: NS 1,000 ML IV SCH (19:44)
[2020-01-17 19:50] VITALS: BP 142/74
[2020-01-17] MEDS: CEFEPIME HCL 2 GM in D5W 50 ML IV SCH (20:19)
[2020-01-17] MEDS: HumaLOG INSULIN (NovoLOG) PER UNIT SC SCH (21:00)
--- NOTE | 2020-01-17 21:33 | ECGEPIP ---
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
[2020-01-17] MEDS: ACETAMINOPHEN TAB 650MG DOSE (2X325MG) PO PRN (21:39)
[2020-01-17] MEDS ORDERED: VANCOMYCIN HCL 1,000 MG, VIAL MATE ADAPTER 1 EACH in D5W 250 ML IV ONE ×2 (22:00→23:00)
--- NOTE | 2020-01-17 22:56 | REP ---
REASON: Pain. Only four views were obtained. The latest prior for comparison is 05/14/2019, a two-view portable exam. There is significant soft tissue swelling about the anterior knee. The density of the patella has decreased rather significantly and particularly in the superior pole region. Calcifications are seen in the suprapatellar bursal region. There is no abnormal periprosthetic lucency seen involving the femoral component; however, there is a new lucency seen involving the medial tibial component and there is evidence of an age-undetermined fracture arising from the medial tibial plateau. IMPRESSION: 1. Significant soft tissue swelling. 2. Significant patellar chondromalacia, as described above. 3. Age-undetermined fracture of the medial proximal tibial metaphysis with lucency underlying the medial component of the tibial prosthesis. This could indicate loosening. 4. Probable large joint effusion with chronic calcifications. Electronically Signed by New Barnett DO 01/18/2020 08:27 A
--- NOTE | 2020-01-17 22:57 | REP ---
REASON: Preoperative. FINDINGS: The technique utilized in obtaining the radiograph has magnified the cardiac silhouette and accentuated the interstitial markings. The superior mediastinal structures are midline. The cardiac silhouette is unremarkable in size, shape, and position. The diaphragmatic surfaces of the lungs are regular, and the costophrenic angles are clear. The pulmonary curtis are clear. The imaged osseous structures are intact. IMPRESSION: There is no acute cardiopulmonary disease. Electronically Signed by New Barnett DO 01/18/2020 08:27 A
[2020-01-18] MEDS: LEVOTHYROXINE 100MCG TABLET (0.1MG) PO SCH (05:55)
[2020-01-18] MEDS: NS 1,000 ML IV SCH ×2 (05:55→20:45)
[2020-01-18 06:00] VITALS: BP 137/75
[2020-01-18] MEDS ORDERED: VANCOMYCIN HCL 1,000 MG, VIAL MATE ADAPTER 1 EACH in D5W 250 ML IV SCH (06:00)
[2020-01-18 06:15] LABS: HEMATOCRIT 28.2 % (36.0-47.0); HEMOGLOBIN 8.8 g/dl (12.0-15.5); MEAN CORPUSCULAR HGB CONC 31.2 g/dl (32.0-36.5); MEAN CORPUSCULAR VOLUME 86.5 fl (80.0-96.0); PLATELET COUNT, AUTOMATED 402 10^3/uL (150-450); RED BLOOD COUNT 3.26 10^6/uL (4.00-5.40)
[2020-01-18 06:45] LABS: BLOOD UREA NITROGEN 15 MG/DL (7-18); CALCIUM LEVEL 8.4 MG/DL (8.5-10.1); CARBON DIOXIDE LEVEL 30 MEQ/L (21-32); CHLORIDE LEVEL 102 MEQ/L (98-107); GLOMERULAR FILTRATION RATE > 60.0 (>51); GLUCOSE, FASTING 78 MG/DL (70-100); MAGNESIUM LEVEL 1.9 MG/DL (1.8-2.4); POTASSIUM SERUM 4.2 MEQ/L (3.5-5.1); SODIUM LEVEL 136 MEQ/L (136-145)
[2020-01-18] MEDS: HumaLOG INSULIN (NovoLOG) PER UNIT SC SCH ×4 (07:30→21:00)
[2020-01-18 08:54] LABS: BODY FLUID RHEUMATOID SCREEN NEGATIVE (NEGATIVE); MUCIN CLOT TEST 4+ (4+)
[2020-01-18] MEDS: PARoxetine 20 MG TAB PO SCH (08:54)
[2020-01-18] MEDS: LISINOPRIL *2.5 MG* TAB PO SCH (08:56)
[2020-01-18] MEDS: CEFEPIME HCL 2 GM in D5W 50 ML IV SCH (08:57)
[2020-01-18] MEDS: atenoloL 25 MG TAB PO SCH (08:57)
[2020-01-18] MEDS: hydroCHLOROthiazide 12.5 MG CAPSULE PO SCH (08:57)
[2020-01-18] MEDS: SIMVASTATIN 20 MG TAB PO SCH (08:57)
[2020-01-18] MEDS: ACETAMINOPHEN TAB 650MG DOSE (2X325MG) PO PRN ×3 (08:57→20:46)
[2020-01-18] MEDS: HEPARIN SOD (PORCINE) 5000UNITS/ML VIAL (J1644 PER 1000UNITS) SC SCH ×2 (08:58→23:00)
[2020-01-18] MEDS ORDERED: ASPIRIN 81 MG ENTERIC TAB PO SCH (09:00)
--- NOTE | 2020-01-18 12:52 | IPNPDOC ---
Text Note Date of Service The patient was seen on 01/18/20. NOTE Subjective: Patient complains of mild right knee pain. No any acute events ov ernight. Patient denies fever, chills, nausea, vomiting, diarrhea or dysuria Objective: VITAL SIGNS: Please see below. GENERAL: awake, alert, NAD HEENT: NCAT, anicteric sclera, MORENO NECK: supple, no JVD CARDIOVASCULAR EXAMINATION: NS1S2, regular rate/rhythm RESPIRATORY EXAMINATION: CTA b/l, no wheezes/rales/rhonchi ABDOMINAL EXAMINATION: positive bowel sounds x 4, NT EXTREMITIES: no cyanosis, clubbing, edema SKIN: warm, no rashes. NEUROLOGICAL EXAMINATION: AAO x 3, no motor/sensory deficits PSYCHIATRIC EXAMINATION: calm, normal affect Patient is 59 years old female with past medical history osteoarthritis, diabetes type 2, hyperlipidemia presented to the hospital with right knee pain. Patient stated that for past few days she's been having increased right knee pain with warm sensation. She states that pain increased when she walked. Orthopedic surgeon did knee arthrocentesis today, plan to proceed with surgery on 01/19/20. In emergency room patient was found to have no leukocytosis, hemoglobin of 9.8. Knee fluid showed 208,000 leukocytes count. Patient denied fever, chills, nausea, vomiting, chest pain, palpitations diarrhea or dysuria Problems (1) Infection of knee Continue with Vancomycin IV, cefepime IV DC IV fluid Ortho team will proceed with surgery on 01/19/20 knee culture streptococcus group G preliminary result Await blood culture (2) Diabetes mellitus Insulin sliding scale Diabetes diet (3) Hypertension Blood pressures under control Continue home meds VS,Fishbone, I+O VS, Fishbone, I+O Laboratory Tests 01/17/20 18:16 01/17/20 19:06 01/18/20 05:35 Vital Signs Date Time Temp Pulse Resp B/P (MAP) Pulse Ox O2 Delivery O2 Flow Rate FiO2 01/18/20 08:57 91 127/89 01/18/20 06:00 98.3 20 97 Room Air I&O- Last 24 Hours up to 6 AM 01/18/20 06:00 Intake Total 390 ml Output Total 500 ml Balance -110 ml RICARDO DUVALL DO January 18, 2020 12:52
[2020-01-18] MEDS: LACTIC ACID 12% LOTION 225 GM BTL TOP SCH ×2 (13:14→20:47)
[2020-01-18 14:00] VITALS: BP 124/73
[2020-01-18] MEDS: cefTRIAXone SOD 2 GM in D5W MINI-BAG PLUS 50 ML IV SCH (15:32)
[2020-01-18 22:00] VITALS: BP 108/66
[2020-01-19] VITALS (10 sets, daily range): BP systolic 109–137; BP diastolic 68–86
[2020-01-19] MEDS: NS 1,000 ML IV SCH ×3 (06:13→20:52)
[2020-01-19] MEDS: LEVOTHYROXINE 100MCG TABLET (0.1MG) PO SCH (06:13)
[2020-01-19] MEDS ORDERED: fentaNYL 100 MCG/2 ML INJECTION (J3010) As Ordered ONE (07:04)
[2020-01-19] MEDS ORDERED: MIDAZOLAM INJ 2MG/2ML VIAL (J2250 PER 1MG) As Ordered ONE (07:04)
[2020-01-19] MEDS ORDERED: PHENYLephrine HCL 500 MCG/5 ML (100MCG/ML) SYRINGE (J2370) As Ordered ONE (07:05)
[2020-01-19] MEDS ORDERED: dexameTHASONE 4 MG/ML 1ML VIAL (J1100 PER 1MG) As Ordered ONE (07:05)
[2020-01-19] MEDS ORDERED: ePHEDrine SULFATE 25 MG/5 ML(5MG/ML) SYRINGE As Ordered ONE (07:05)
[2020-01-19] MEDS ORDERED: SUGAMMADEX SODIUM 500 MG/5 ML VIAL (BRIDION) As Ordered ONE (07:05)
[2020-01-19] MEDS ORDERED: LIDOCAINE 2% 100MG/5ML SDV (FOR ANES.) As Ordered ONE (07:05)
[2020-01-19] MEDS ORDERED: propofoL 200 MG/20 ML VIAL As Ordered ONE ×2 (07:05→08:47)
[2020-01-19] MEDS ORDERED: ROCURONIUM BROMIDE 50 MG/5 ML VIAL As Ordered ONE (07:05)
[2020-01-19] MEDS ORDERED: ONDANSETRON 4MG/2ML VIAL As Ordered ONE (07:05)
[2020-01-19] MEDS: HumaLOG INSULIN (NovoLOG) PER UNIT SC SCH ×4 (07:30→21:00)
--- NOTE | 2020-01-19 07:45 | CR ---
DATE OF CONSULTATION: 01/18/2020 INFECTIOUS DISEASE CONSULTATION: REQUESTING PHYSICIAN: Dr. Harsha Jones REASON FOR CONSULTATION: Septic arthritis of right knee with previous total knee arthroplasty. HISTORY OF PRESENT ILLNESS: Patient is a 59-year-old female who presented to the hospital yesterday, 01/17/2020, with a chief complaint of right knee swelling. Patient says that over the past week, she has noticed more increased pain and swelling in her right knee. Patient states that she called the orthopedic office, who made an appointment with her for Tuesday. However, she was then told to come into the hospital for further management. Dr. Jones saw the patient yesterday and did an arthrocentesis of the knee and was concerned that there was an infection in the knee. The cultures that were taken yesterday are growing group G streptococcus in the patient's right knee. Patient is planning on going to surgery tomorrow, 01/19/2020, for removal of hardware. Patient states that she did not feel ill at all and other than the right knee pain, she does not have any acute complaints at this time. PAST MEDICAL HISTORY: 1. Hypertension. 2. Hyperlipidemia. 3. Diabetes. 4. Asthma. 5. Hypothyroidism. 6. Anxiety and depression. SURGICAL HISTORY: 1. Plate and pin implant in the left foot. 2. Right rotator cuff surgery. 3. Bilateral carpal tunnel release. 4. Total right knee arthroplasty. SOCIAL HISTORY: Patient denies smoking cigarettes, drinking alcohol, or doing intravenous (IV) drugs. 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 Patient currently lives alone in the [facility] but does have some close friends that live near her that can help her out. FAMILY HISTORY: Patient has a family history of diabetes. ALLERGIES: No known drug allergies. CURRENT INPATIENT MEDICATIONS: - vancomycin - aspirin 81 mg - atenolol 25 mg - hydrochlorothiazide 12.5 mg - lisinopril 2.5 mg - paroxetine 40 mg - simvastatin 20 mg - sliding scale insulin - albuterol inhaler as needed - Tylenol as needed for pain REVIEW OF SYSTEMS: General: Patient denies any fevers, chills, or night sweats. HEENT: Patient denies headache, changes in vision, or sore throat. Cardiovascular: Patient denies chest pain or palpitations. Respiratory: Patient denies shortness of breath or cough. Gastrointestinal (GI): Patient denies abdominal pain, nausea, vomiting, or diarrhea. Genitourinary (): Patient denies any pain or difficulty with urination. Neurological: Patient denies any numbness or tingling in her extremities. Extremities: Patient does endorse swelling in her right knee, as described above, with some pain along the lateral lower side. No swelling in her lower legs. Skin: Patient denies any rashes or lesions. Lymphatics: Patient denies any lumps in her neck, axillae, or groin. PHYSICAL EXAMINATION: Temperature 98.1, pulse 87, respiratory rate 18, blood pressure 124/73, pulse oximetry 96% on room air. General: Patient is an alert and oriented female who was laying in bed when I walked into the room. Patient was in good spirits and did not appear to be in any acute distress. HEENT: Was normocephalic, atraumatic with anicteric sclerae and moist mucous membranes. Neck: Was suppled with no lymphadenopathy and no thyromegaly. Cardiovascular: With a regular rate and rhythm with no murmurs, rubs, or gallops. Respiratory: Was clear to auscultation bilaterally. Abdomen: Soft. Nontender to palpation with normoactive bowel sounds. Extremities. Patient's right knee is swollen but nonerythematous. There is a small area of erythema overlying the fibular head on the right side of the knee. This is tender to the touch. It is also warm to the touch. There is no swelling of the left knee or the lower extremities bilaterally. Skin: The skin of the head, neck, arms, legs, abdomen, and back was examined and did not show any evidence of rash. LABORATORIES: White blood cell 7.0, hemoglobin 8.8, hematocrit, 28.2, platelet count 302. Sodium 136, potassium 4.2, chloride 102, bicarbonate 30, BUN 15, creatinine 0.7, glucose 78, calcium 8.4, magnesium 1.9. CRP was 7.90, and procalcitonin is pending. Microbiology: Two blood cultures performed on 01/17/2020 are pending at the time of this dictation. The culture from the joint fluid is growing group G streptococcus. IMAGING: A chest x-ray performed on 01/17/2020 was reported to show no acute cardiopulmonary disease. An x-ray of the right knee performed on 01/17/2020 was reported to show significant soft tissue swelling, significant patellar chondromalacia, age-undetermined fracture of the medial proximal tibial metaphysis with lucency underlying the medial component of the tibial prosthesis (this could indicate loosening), and probable large joint effusion with chronic calcifications. ASSESSMENT: Patient is a 59-year-old female who presents to the hospital with right knee swelling times 1 week. Patient had an arthrocentesis of the knee, which did show 208,850 white blood cells with a 94.4% predominance of polymorphonuclear cells consistent with septic arthritis on vancomycin initially, but now cultures are growing group G streptococcus, the patient has been switched from vancomycin to ceftriaxone. PLAN; Patient will require 6 weeks of antibiotic therapy. Patient will go to surgery with Dr. Jones tomorrow for removal of the prosthesis and placement of a temporary prosthesis. After the 6 weeks of antibiotics, patient will be able to go back to surgery 2 weeks after this to get another prosthesis placed in the knee. Patient's most likely source of infection could be from the cracked feet that the patient has. We advised the patient to use moisturizing cream and have written for Lac-Hydrin cream to be placed on the patient's feet twice a day. AIDAD
[2020-01-19] MEDS ORDERED: TOBRAMYCIN SULF 1.2 GM VIAL As Ordered ONE ×2 (07:49→08:42)
[2020-01-19] MEDS ORDERED: ceFAZolin 1GM VIAL (J0690 PER 500MG) As Ordered ONE (07:49)
[2020-01-19] MEDS ORDERED: VANCOMYCIN 1000MG/20ML VIAL As Ordered ONE ×3 (07:49→08:22)
[2020-01-19] MEDS ORDERED: ceFAZolin 2 GM/D5W 50 ML IV BAG (J0690 PER 500MG) As Ordered ONE ×2 (08:40→08:42)
[2020-01-19] MEDS ORDERED: ASPIRIN 81 MG ENTERIC TAB PO SCH (09:00)
[2020-01-19] MEDS ORDERED: fentaNYL 100 MCG/2 ML INJECTION (J3010) IV PRN (11:00)
[2020-01-19] MEDS ORDERED: PERCOCET 5MG/325MG TAB PO PRN (11:00)
[2020-01-19] MEDS ORDERED: ONDANSETRON 4MG/2ML VIAL IV PRN (11:00)
[2020-01-19] MEDS ORDERED: LR 1,000 ML IV SCH (11:00)
[2020-01-19] MEDS ORDERED: METOCLOPRAMIDE INJ 10MG/2ML VIAL (J2765 PER 1) IV PRN (11:00)
[2020-01-19] MEDS ORDERED: MEPERIDINE INJ 25 MG/ML VIAL (J2175) IV PRN (11:00)
[2020-01-19] MEDS ORDERED: NORCO, ANEXSIA 5/325MG TABLET (HYDROcodone/ACETAMINOPHEN) PO PRN (11:15)
[2020-01-19] MEDS ORDERED: MORPHINE 2 MG/ML 1ML VIAL (J2270) IV PRN (11:15)
--- NOTE | 2020-01-19 11:50 | REP ---
Clinical: Status post revision. Technique: AP and cross-table lateral views of the right knee. Findings: Evidence for prior arthroplasty. Scattered antibiotic pellets suspected along with postsurgical soft tissue swelling, subcutaneous emphysema, and skin familia. Impression: Status post surgical revision. Electronically Signed by Ancelmo Ann MD 01/19/2020 11:41 A
--- NOTE | 2020-01-19 12:29 | IPNPDOC ---
Text Note Date of Service The patient was seen on 01/19/20. NOTE Subjective: No any acute events overnight. Patient denies fever, chills, nausea, vomiting, diarrhea or dysuria Objective: VITAL SIGNS: Please see below. GENERAL: awake, alert, NAD HEENT: NCAT, anicteric sclera, MORENO NECK: supple, no JVD CARDIOVASCULAR EXAMINATION: NS1S2, regular rate/rhythm RESPIRATORY EXAMINATION: CTA b/l, no wheezes/rales/rhonchi ABDOMINAL EXAMINATION: positive bowel sounds x 4, NT EXTREMITIES: no cyanosis, clubbing, edema SKIN: warm, no rashes. NEUROLOGICAL EXAMINATION: AAO x 3, no motor/sensory deficits PSYCHIATRIC EXAMINATION: calm, normal affect Patient is 59 years old female with past medical history osteoarthritis, diabetes type 2, hyperlipidemia presented to the hospital with right knee pain. Patient stated that for past few days she's been having increased right knee pain with warm sensation. She states that pain increased when she walked. Orthopedic surgeon did knee arthrocentesis today, plan to proceed with surgery on 01/19/20. In emergency room patient was found to have no leukocytosis, hemoglobin of 9.8. Knee fluid showed 208,000 leukocytes count. Patient denied fever, chills, nausea, vomiting, chest pain, palpitations diarrhea or dysuria Problems (1) Infection of knee DC Vancomycin IV, cefepime IV DC Continue ceftriaxone IV Ortho team will proceed with surgery today knee culture streptococcus group G preliminary result blood culture negative (2) Diabetes mellitus Insulin sliding scale Diabetes diet (3) Hypertension Blood pressures under control Continue home meds VS,Fishbone, I+O VS, Fishbone, I+O Vital Signs Date Time Temp Pulse Resp B/P (MAP) Pulse Ox O2 Delivery O2 Flow Rate FiO2 01/19/20 12:09 16 01/19/20 11:50 97.5 85 123/83 (96) 94 Room Air I&O- Last 24 Hours up to 6 AM 01/19/20 06:00 Intake Total 1670 ml Output Total 1875 ml Balance -205 ml RICARDO DUVALL DO January 19, 2020 12:29
[2020-01-19] MEDS: hydroCHLOROthiazide 12.5 MG CAPSULE PO SCH (12:53)
[2020-01-19] MEDS: LISINOPRIL *2.5 MG* TAB PO SCH (12:53)
[2020-01-19 13:04] LABS: BASO % 0.3 % (0.0-1.0); EOS % 0.2 % (0.0-3.0); HEMATOCRIT 27.9 % (36.0-47.0); HEMOGLOBIN 8.7 g/dl (12.0-15.5); LYMPH # 0.5 10^3/uL (1.5-5.0); MEAN CORPUSCULAR HEMOGLOBIN 27.1 pg (27.0-33.0); MEAN CORPUSCULAR HGB CONC 31.2 g/dl (32.0-36.5); MEAN CORPUSCULAR VOLUME 86.9 fl (80.0-96.0); MONO # 0.2 10^3/uL (0.0-0.8); MONO % 2.3 % (0.0-5.0); NEUTROPHILS # 8.5 10^3/uL (1.5-8.5); NEUTROPHILS % 91.5 % (36.0-66.0); PLATELET COUNT, AUTOMATED 403 10^3/uL (150-450); RED BLOOD COUNT 3.21 10^6/uL (4.00-5.40); WHITE BLOOD COUNT 9.2 10^3/uL (4.0-10.0)
[2020-01-19 13:36] LABS: BLOOD UREA NITROGEN 9 MG/DL (7-18); CALCIUM LEVEL 8.6 MG/DL (8.5-10.1); CARBON DIOXIDE LEVEL 28 MEQ/L (21-32); CHLORIDE LEVEL 103 MEQ/L (98-107); CREATININE FOR GFR 0.61 MG/DL (0.55-1.30); GLOMERULAR FILTRATION RATE > 60.0 (>51); GLUCOSE, FASTING 120 MG/DL (70-100); POTASSIUM SERUM 4.5 MEQ/L (3.5-5.1); SODIUM LEVEL 138 MEQ/L (136-145)
[2020-01-19] MEDS: LACTIC ACID 12% LOTION 225 GM BTL TOP SCH ×2 (14:25→21:10)
[2020-01-19] MEDS: cefTRIAXone SOD 2 GM in D5W MINI-BAG PLUS 50 ML IV SCH (15:44)
[2020-01-19] MEDS: atenoloL 25 MG TAB PO SCH (15:44)
[2020-01-19] MEDS: PARoxetine 20 MG TAB PO SCH (15:44)
[2020-01-19] MEDS: SIMVASTATIN 20 MG TAB PO SCH (15:44)
[2020-01-19] MEDS: NORCO, ANEXSIA 5/325MG TABLET (HYDROcodone/ACETAMINOPHEN) PO PRN ×2 (16:42→21:11)
[2020-01-20] MEDS: NORCO, ANEXSIA 5/325MG TABLET (HYDROcodone/ACETAMINOPHEN) PO PRN ×4 (03:03→23:06)
[2020-01-20 05:27] LABS: BASO % 0.2 % (0.0-1.0); HEMATOCRIT 25.1 % (36.0-47.0); HEMOGLOBIN 7.9 g/dl (12.0-15.5); LYMPH # 0.8 10^3/uL (1.5-5.0); LYMPH % 9.9 % (24.0-44.0); MEAN CORPUSCULAR HEMOGLOBIN 26.9 pg (27.0-33.0); MEAN CORPUSCULAR HGB CONC 31.5 g/dl (32.0-36.5); MEAN CORPUSCULAR VOLUME 85.4 fl (80.0-96.0); NEUTROPHILS # 6.6 10^3/uL (1.5-8.5); NEUTROPHILS % 77.5 % (36.0-66.0); PLATELET COUNT, AUTOMATED 399 10^3/uL (150-450); RED BLOOD COUNT 2.94 10^6/uL (4.00-5.40); WHITE BLOOD COUNT 8.5 10^3/uL (4.0-10.0)
[2020-01-20 05:47] LABS: BLOOD UREA NITROGEN 10 MG/DL (7-18); CALCIUM LEVEL 8.8 MG/DL (8.5-10.1); CARBON DIOXIDE LEVEL 30 MEQ/L (21-32); CHLORIDE LEVEL 101 MEQ/L (98-107); CREATININE FOR GFR 0.56 MG/DL (0.55-1.30); GLOMERULAR FILTRATION RATE > 60.0 (>51); GLUCOSE, FASTING 106 MG/DL (70-100); MAGNESIUM LEVEL 1.6 MG/DL (1.8-2.4); POTASSIUM SERUM 4.2 MEQ/L (3.5-5.1); SODIUM LEVEL 137 MEQ/L (136-145)
[2020-01-20 06:00] VITALS: BP 106/53
[2020-01-20] MEDS: LEVOTHYROXINE 100MCG TABLET (0.1MG) PO SCH (06:40)
[2020-01-20] MEDS: HumaLOG INSULIN (NovoLOG) PER UNIT SC SCH ×4 (07:30→20:50)
[2020-01-20] MEDS: hydroCHLOROthiazide 12.5 MG CAPSULE PO SCH (08:53)
[2020-01-20] MEDS: PARoxetine 20 MG TAB PO SCH (08:53)
[2020-01-20] MEDS: SIMVASTATIN 20 MG TAB PO SCH (08:53)
[2020-01-20] MEDS: ASPIRIN 81 MG ENTERIC TAB PO SCH ×2 (08:54→20:44)
[2020-01-20] MEDS: atenoloL 25 MG TAB PO SCH (08:54)
[2020-01-20] MEDS: LISINOPRIL *2.5 MG* TAB PO SCH (08:54)
[2020-01-20] MEDS: LACTIC ACID 12% LOTION 225 GM BTL TOP SCH ×2 (08:55→20:45)
[2020-01-20] MEDS ORDERED: MAG SULF 1GM/100ML (MAG RUN) 1 GM in IV 1 EA IV ONE (09:00)
[2020-01-20 10:00] VITALS: BP 112/63
--- NOTE | 2020-01-20 11:43 | IPNPDOC ---
Text Note Date of Service The patient was seen on 01/20/20. NOTE Subjective: No any acute events overnight. Patient denied any right knee pain. Patient denies fever, chills, nausea, vomiting, diarrhea or dysuria Objective: VITAL SIGNS: Please see below. GENERAL: awake, alert, NAD HEENT: NCAT, anicteric sclera, MORENO NECK: supple, no JVD CARDIOVASCULAR EXAMINATION: NS1S2, regular rate/rhythm RESPIRATORY EXAMINATION: CTA b/l, no wheezes/rales/rhonchi ABDOMINAL EXAMINATION: positive bowel sounds x 4, NT EXTREMITIES: no cyanosis, clubbing, edema SKIN: warm, no rashes. NEUROLOGICAL EXAMINATION: AAO x 3, no motor/sensory deficits PSYCHIATRIC EXAMINATION: calm, normal affect Patient is 59 years old female with past medical history osteoarthritis, diabetes type 2, hyperlipidemia presented to the hospital with right knee pain. Patient stated that for past few days she's been having increased right knee pain with warm sensation. She states that pain increased when she walked. Orthopedic surgeon did knee arthrocentesis today, plan to proceed with surgery on 01/19/20. In emergency room patient was found to have no leukoc ytosis, hemoglobin of 9.8. Knee fluid showed 208,000 leukocytes count. Patient denied fever, chills, nausea, vomiting, chest pain, palpitations diarrhea or dysuria Problems (1) Infection of knee Most likely secondary to source of infection could be from the cracked feet. Lac-Hydrin cream BID DC Vancomycin IV, cefepime IV DC Continue ceftriaxone IV Patient tolerated procedure well knee culture streptococcus group G blood culture negative (2) Diabetes mellitus Insulin sliding scale Diabetes diet (3) Hypertension Blood pressures under control Continue home meds VS,Fishbone, I+O VS, Fishbone, I+O Laboratory Tests 01/19/20 12:48 01/20/20 04:48 Vital Signs Date Time Temp Pulse Resp B/P (MAP) Pulse Ox O2 Delivery O2 Flow Rate FiO2 01/20/20 10:00 97.8 79 18 112/63 (79) 97 Room Air I&O- Last 24 Hours up to 6 AM 01/20/20 05:59 Intake Total 3435 ml Output Total 220 ml Balance 3215 ml RICARDO DUVALL DO January 20, 2020 11:43
[2020-01-20 14:00] VITALS: BP 108/60
[2020-01-20] MEDS: cefTRIAXone SOD 2 GM in D5W MINI-BAG PLUS 50 ML IV SCH (15:19)
[2020-01-20 22:00] VITALS: BP 102/62
[2020-01-21 06:00] VITALS: BP 132/60
[2020-01-21] MEDS: LEVOTHYROXINE 100MCG TABLET (0.1MG) PO SCH (06:12)
[2020-01-21] MEDS: NORCO, ANEXSIA 5/325MG TABLET (HYDROcodone/ACETAMINOPHEN) PO PRN ×3 (06:13→14:37)
[2020-01-21] MEDS: HumaLOG INSULIN (NovoLOG) PER UNIT SC SCH ×4 (07:30→21:00)
[2020-01-21 07:47] LABS: BASO % 0.5 % (0.0-1.0); EOS # 0.4 10^3/uL (0.0-0.5); EOS % 4.3 % (0.0-3.0); HEMATOCRIT 25.8 % (36.0-47.0); LYMPH # 1.6 10^3/uL (1.5-5.0); LYMPH % 18.3 % (24.0-44.0); MEAN CORPUSCULAR HEMOGLOBIN 26.7 pg (27.0-33.0); MONO # 0.9 10^3/uL (0.0-0.8); MONO % 10.8 % (0.0-5.0); NEUTROPHILS # 5.6 10^3/uL (1.5-8.5); NEUTROPHILS % 65.6 % (36.0-66.0); PLATELET COUNT, AUTOMATED 383 10^3/uL (150-450); WHITE BLOOD COUNT 8.5 10^3/uL (4.0-10.0)
[2020-01-21 08:04] LABS: BLOOD UREA NITROGEN 13 MG/DL (7-18); CALCIUM LEVEL 8.6 MG/DL (8.5-10.1); CARBON DIOXIDE LEVEL 27 MEQ/L (21-32); CHLORIDE LEVEL 100 MEQ/L (98-107); CREATININE FOR GFR 0.61 MG/DL (0.55-1.30); GLOMERULAR FILTRATION RATE > 60.0 (>51); GLUCOSE, FASTING 85 MG/DL (70-100); MAGNESIUM LEVEL 1.6 MG/DL (1.8-2.4); POTASSIUM SERUM 4.3 MEQ/L (3.5-5.1); SODIUM LEVEL 134 MEQ/L (136-145)
[2020-01-21] MEDS: LISINOPRIL *2.5 MG* TAB PO SCH (08:23)
[2020-01-21] MEDS: ASPIRIN 81 MG ENTERIC TAB PO SCH ×2 (08:23→21:37)
[2020-01-21] MEDS: SIMVASTATIN 20 MG TAB PO SCH (08:23)
[2020-01-21] MEDS: hydroCHLOROthiazide 12.5 MG CAPSULE PO SCH (08:23)
[2020-01-21] MEDS: atenoloL 25 MG TAB PO SCH (08:24)
[2020-01-21] MEDS: LACTIC ACID 12% LOTION 225 GM BTL TOP SCH ×2 (08:24→21:38)
[2020-01-21] MEDS: PARoxetine 20 MG TAB PO SCH (08:24)
[2020-01-21 14:01] VITALS: BP 92/59
[2020-01-21 14:35] VITALS: BP 102/60
[2020-01-21] MEDS: cefTRIAXone SOD 2 GM in D5W MINI-BAG PLUS 50 ML IV SCH (14:38)
--- NOTE | 2020-01-21 17:29 | IPNPDOC ---
Text Note Date of Service The patient was seen on 01/21/20. NOTE Subjective: No any acute events overnight. Patient doing well physical therapy Patient denies fever, chills, nausea, vomiting, diarrhea or dysuria Objective: VITAL SIGNS: Please see below. GENERAL: awake, alert, NAD HEENT: NCAT, anicteric sclera, MORENO NECK: supple, no JVD CARDIOVASCULAR EXAMINATION: NS1S2, regular rate/rhythm RESPIRATORY EXAMINATION: CTA b/l, no wheezes/rales/rhonchi ABDOMINAL EXAMINATION: positive bowel sounds x 4, NT EXTREMITIES: no cyanosis, clubbing, edema SKIN: warm, no rashes. NEUROLOGICAL EXAMINATION: AAO x 3, no motor/sensory deficits PSYCHIATRIC EXAMINATION: calm, normal affect Patient is 59 years old female with past medical history osteoarthritis, diabetes type 2, hyperlipidemia presented to the hospital with right knee pain. Patient stated that for past few days she's been having increased right knee pain with warm sensation. She states that pain increased when she walked. Orthopedic surgeon did knee arthrocentesis today, plan to proceed with surgery on 01/19/20. In emergency room patient was found to have no leukoc ytosis, hemoglobin of 9.8. Knee fluid showed 208,000 leukocytes count. Patient denied fever, chills, nausea, vomiting, chest pain, palpitations diarrhea or dysuria Problems (1) Infection of knee Most likely secondary to source of infection could be from the cracked feet. Lac-Hydrin cream BID DC Vancomycin IV, cefepime IV DC Continue ceftriaxone IV Patient tolerated procedure well knee culture streptococcus group G blood culture negative (2) Diabetes mellitus Insulin sliding scale Diabetes diet (3) Hypertension Blood pressures under control Continue home meds Due to episodes of hypotension the morning I stopped hydrochlorothiazide. VS,Fishbone, I+O VS, Fishbone, I+O Laboratory Tests 01/21/20 06:51 Vital Signs Date Time Temp Pulse Resp B/P (MAP) Pulse Ox O2 Delivery O2 Flow Rate FiO2 01/21/20 15:07 18 Room Air 01/21/20 14:35 102/60 (74) 01/21/20 14:02 97.5 85 94 I&O- Last 24 Hours up to 6 AM0 01/21/20 05:59 Intake Total 1540 ml Output Total 450 ml Balance 1090 ml DROZHZHIN,RICARDO DO January 21, 2020 17:29
[2020-01-21 21:31] VITALS: BP 100/60
[2020-01-21] MEDS: ACETAMINOPHEN TAB 650MG DOSE (2X325MG) PO PRN (23:24)
[2020-01-22 05:52] LABS: BASO # 0.1 10^3/uL (0.0-0.2); BASO % 0.8 % (0.0-1.0); EOS # 0.6 10^3/uL (0.0-0.5); EOS % 7.8 % (0.0-3.0); HEMATOCRIT 25.7 % (36.0-47.0); LYMPH # 1.1 10^3/uL (1.5-5.0); LYMPH % 14.8 % (24.0-44.0); MEAN CORPUSCULAR HEMOGLOBIN 27.4 pg (27.0-33.0); MEAN CORPUSCULAR HGB CONC 31.1 g/dl (32.0-36.5); MONO # 0.8 10^3/uL (0.0-0.8); MONO % 10.8 % (0.0-5.0); NEUTROPHILS # 4.9 10^3/uL (1.5-8.5); NEUTROPHILS % 64.7 % (36.0-66.0); PLATELET COUNT, AUTOMATED 396 10^3/uL (150-450); RED BLOOD COUNT 2.92 10^6/uL (4.00-5.40); WHITE BLOOD COUNT 7.6 10^3/uL (4.0-10.0)
[2020-01-22 05:55] LABS: BLOOD UREA NITROGEN 14 MG/DL (7-18); CALCIUM LEVEL 8.9 MG/DL (8.5-10.1); CARBON DIOXIDE LEVEL 32 MEQ/L (21-32); CHLORIDE LEVEL 99 MEQ/L (98-107); GLOMERULAR FILTRATION RATE > 60.0 (>51); GLUCOSE, FASTING 85 MG/DL (70-100); MAGNESIUM LEVEL 1.5 MG/DL (1.8-2.4); POTASSIUM SERUM 4.6 MEQ/L (3.5-5.1); SODIUM LEVEL 139 MEQ/L (136-145)
[2020-01-22 06:06] VITALS: BP 91/61
[2020-01-22] MEDS: LEVOTHYROXINE 100MCG TABLET (0.1MG) PO SCH (06:07)
[2020-01-22] MEDS: HumaLOG INSULIN (NovoLOG) PER UNIT SC SCH ×2 (07:30→13:12)
[2020-01-22 08:53] VITALS: BP 93/60
[2020-01-22 08:54] VITALS: BP 93/60
[2020-01-22] MEDS: atenoloL 25 MG TAB PO SCH (08:54)
[2020-01-22] MEDS: ASPIRIN 81 MG ENTERIC TAB PO SCH (08:59)
[2020-01-22] MEDS: SIMVASTATIN 20 MG TAB PO SCH (08:59)
[2020-01-22] MEDS: PARoxetine 20 MG TAB PO SCH (08:59)
[2020-01-22] MEDS: LACTIC ACID 12% LOTION 225 GM BTL TOP SCH (09:00)
[2020-01-22] MEDS ORDERED: LIDOCAINE 1% MDV 20ML VIAL As Ordered ONE (11:32)
[2020-01-22] MEDS ORDERED: LACH12LO TOP (12:29)
[2020-01-22] MEDS: cefTRIAXone SOD 2 GM in D5W MINI-BAG PLUS 50 ML IV SCH (13:32)
[2020-01-22 14:00] VITALS: BP 97/62
--- NOTE | 2020-01-22 16:47 | REP ---
Procedure: PICC line insertion with Oliverio The procedure was performed under the direct supervision of Dr. Zamudio. The risks and benefits of the procedure were explained to the patient and informed consent was obtained. The right basilic vein was localized using ultrasound guidance. The skin was prepped and draped in a sterile fashion. 2% lidocaine was used as a local anesthetic. Using ultrasound guidance the basilic vein was cannulated and a 0.018 guidewire was inserted and advanced to the SVC using fluoroscopic guidance. The needle was removed and a 4.5 Niuean dilator and peel-away sheath was inserted over the guide wire. A 4.5 Niuean single lumen catheter was cut to length of 37 cm. The dilator was removed and the catheter was inserted over the guide wire with the tip ending in the SVC. The peel-away sheath was removed and the catheter was flushed with heparinized saline as per Hospital protocol. The catheter was affixed to the skin and a sterile dressing was applied. The patient tolerated the procedure well and there were no immediate complications. 0.1 minutes of fluoro time was utilized for this procedure. Electronically Signed by JACY Pettit 01/22/2020 04:28 P Electronically Signed by Tato Zamudio MD 01/22/2020 04:38 P
--- NOTE | 2020-01-23 09:16 | CR ---
DATE OF CONSULTATION: 01/17/2020 REASON FOR CONSULTATION: Possible septic right total knee replacement. PRESENT ILLNESS: She is a 59-year-old female who underwent a right knee replacement April of 2019 uneventfully, did very well. However, she presented to my office several days ago complaining of stiffness and swelling involving the right knee. At the time in the office a few a days ago, she gave a history of having a "sickness" for which she sought care from Dr. Jarod Baires, and after some research found that she was placed on doxycycline ending 10 days ending mid August. Then, swelling, pain and soreness of the knee developed sometime after that, but because of the virus she did not seek care right away and presented to my office a few days ago. We did an x-ray of the knee and it was suspicious for some loosening of the prostatic components of the knee. I offered an aspiration that day but she declined that, so instead we ordered a bone scan and labs. She was unable to get the labs done but did get the bone scan completed, which I reviewed, and shows increased uptake diffusely about the knee more than would be expected from a knee replacement done 8-9 months earlier. So, it is consistent with possibly loosening or infection. She has not been having any fevers other than she did at the time when she was ill back in August she described having fevers. But nothing of late, but she has been walking with a stiff knee gait since that time. Since I obtained the results of the bone, we have been attempting to reach her and all day today we have tried to get her to at least get the labs done and then we would like her actually to have come directly to the emergency room so we could complete this workup for her potential septic total knee, and now she presents to the emergency room so I can perform the aspiration as well as get the appropriate laboratory studies and other evaluations in anticipation that this may require resection arthroplasty at this point. Presently, however, she does not have a lot of pain. She has not been having any fevers, but she cannot bend the knee. After the bone scan she did say that she developed some swelling and bruising and she points over the are of tibial tubercle of the right known, and that has become more tender of late. Her past medical history is significant for hypertension, hypercholesterolemia, diabetes [id number], asthma, hypothyroidism, anxiety and depression. She is disabled for mental reasons. Past surgical history is the right total knee replacement April of 2019. Her medications at home include albuterol, atenolol, calcipotriene, vitamin D3, vitamin B12, paroxetine, hydrochlorothiazide, levothyroxine, lisinopril, metformin, and simvastatin. She also takes a baby aspirin and by record she takes Xarelto, and I asked her why she takes Xarelto and she says she is not sure why she takes Xarelto. Review of systems in detail are otherwise unremarkable. SOCIAL HISTORY: She lives alone. She is not employed. She does not smoke or drink alcohol excessively. When I examine her, she is a pleasant female. She is walking with a stiff knee gait, not necessarily antalgic. Temperature is 96.9 and pulse 84, respirations 18, blood pressure 107/80. Oxygen saturation is 96% on room air. HEENT exam is begin. Lungs are generally clear. Abdomen nontender. Right lower extremity showed a healed scar anteriorly. The knee is slightly warm and the only area of tenderness and some erythema and induration were noted near the tibial tubercle. My sense was that there did not appear to be a significant effusion within the knee, but she could only bend the knee to about 0-20 degrees. It is stable otherwise to varus, valgus stress testing. She had good pulses distally and normal motor strength. X-rays of the right are presently pending. Bone scan results showed the increased uptake around the distal femur of the tibial tray consistent with loosening or infection. Labs are otherwise pending presently. My impression is high likelihood of this being a septic right total knee replacement. Given the history of her remote infection several months ago treated with doxycycline, had progressive pain and soreness and stiffness, and the results of the bone scan are suspicious for this. My recommendations at this point are to aspirate the knee for fluid, obtain appropriate laboratory studies and admit her to the hospital once we get appropriate laboratory studies and admit her to the hospital and once we get appropriate fluid it is suspicious start IV antibiotics and ask for appropriate medical optimization with our hospitalist and get appropriate infectious disease consultation to help us with this as well and possibly consider resection arthroplasty with cement spacer implantation when she is felt to be medically appropriate.
--- NOTE | 2020-01-23 14:24 | RO ---
DATE OF PROCEDURE: 01/18/2020 PREPROCEDURE DIAGNOSIS: Possible septic right total knee replacement. POSTPROCEDURE DIAGNOSIS: Possible septic right total knee replacement. PROCEDURE: Aspiration right knee. SURGEON: Dr. Gris Jones FULL DECATOR OPERATOR: ANESTHESIA: Local. COMPLICATIONS: None. SPECIMENS: Joint fluid for joint fluid analysis, gram stain, and culture and sensitivity. FINDINGS: Over the region of the tibial tubercle at the area of maximal tenderness, I was able to aspirate approximately 7-8 mL of grossly purulent bloody material that was placed into a purple top and red top tube for joint fluid analysis, gram stain and culture and sensitivity. DESCRIPTION OF PROCEDURE: After sterile prep and appropriate time o9ut and consent was obtained, 1% lidocaine was infiltrated in the skin laterally. When I first attempted to aspirate the knee, I clearly was into the knee joint, but it was basically a dry tap. There was no fluid within the knee. Thus, more distally where she was tender with some minor swelling, I separately numbed the skin with lidocaine and I placed the needle in that area at the tibial tubercle and I was able to aspirate about 7 mL or so of bloody purulent appearing material. That material was placed in the red top and purple top tubes for joint fluid analysis, gram stain and culture and sensitivity. She tolerated it well. Band-Aids were applied. There were no complications.
--- NOTE | 2020-01-25 14:06 | RO ---
DATE OF OPERATION: 01/19/2020 PREOPERATIVE DIAGNOSIS: Infected right total knee replacement. POSTOPERATIVE DIAGNOSIS: Infected right total knee replacement. PROCEDURES: 1. Resection of right total knee replacement femoral, tibial, and patellar components. 2. Radical synovectomy, debridement, and irrigation right knee. 3. Implantation of a right knee antibiotic cemented femoral component and antibiotic cement tibial component right knee with antibiotic beads, as well. SURGEON: Gris Jones MD SILVERER: Kin Baires MD ANESTHESIA: Spinal. COMPLICATIONS: None. FINDINGS: Gross pus around the tibial tray, but the components were well fixed. SPECIMENS: Synovium and joint fluid for gram stain, culture and sensitivity. DESCRIPTION OF PROCEDURE: She was on scheduled antibiotics. In addition, 2 grams of Kefzol were given intravenously preoperatively. A successful spinal anesthetic was induced, and a tourniquet was placed on the right upper thigh and not inflated. Right lower extremity was carefully prepped and draped in the usual sterile fashion. She had a fairly stiff knee. I did manipulate it prior to making an incision, and I got the flexion a little bit beyond 90 degrees. Once the appropriate time-out had been completed, the tourniquet was then inflated to 250 mmHg for 88 minutes. A longitudinal incision was made over the previous scar. Deep subdermal flaps were created down to the fascial level, and then the arthrotomy was performed. Distally in the wound, gross purulence was noted, and this was sent for aerobic and anaerobic culture, gram stain, and sensitivity. Subperiosteal dissection of the proximal medial tibia and proximal lateral tibia, and then a synovectomy was performed in the suprapatellar pouch, medial and lateral gutters, and the anterior fat pad. Eventually, we were able to translate the patella laterally and flex the knee. It was noteworthy that there was quite a bit of lucency around the tibial tray anteriorly, but the components were well fixed. We thus addressed the femoral component first. It was noteworthy that there was a separation or a gap between the cement and bone interface, not the cement prosthetic interface laterally. Thin osteotomes were placed sequentially, both from the medial side of the knee and then the lateral side of the knee, alternating with me and my kindergarten instructional assistant, Dr. Kin Baires, to eventually loosen the femoral component, and then we were able to use the extractor and eventually remove it. There was some small amount of cancellous bone loss on the medial femoral condyle. The two cement holes and the femur were drilled out with a 4.5 drill to remove all excess cement. The synovectomy in the anterior notch was performed, and the portion of synovium that was in the notch, it was brownish and discolored and clearly necrotic and likely infectious, was sent for specimen for formal culture of the synovium. We then addressed the tibial tray. Using the thin osteotome once again, working medially and laterally, as well as posteromedial and posterolateral corners, we loosened with the osteotome and then used the extractor device to eventually pull the tibial tray out from the bone. There was a fracture of the tibia posteriorly noted, but it was nondisplaced and still somewhat stable. We were very careful to not manipulate this and to leave it in place. All the excess cement under the tibial tray and then down into the tibial hole was removed using osteotomes and mallets. It is noteworthy again that all of the cement surfaces were well fixed. A copious amount of pulsatile lavage irrigant solution was instilled into the knee several times throughout the operation, and all obviously infected synovial tissue was removed. We then measured the anterior and posterior distance of the distal femur and decided on a medium-sized femoral cement spacer mold, and on referencing off the tibial tray, we decided on a small tibial tray. My kindergarten instructional assistant, Dr. Baires, mixed the two bags of antibiotic cement with an additional 1 gram of tobramycin and 1 gram of vancomycin into each bag for the femoral mold. We did the same for the tibial mold. First, the femoral mold was made. Prior to the patient coming into the room, we did make the antibiotic beads on the back table to make those in preparation for implantation. Once all the bony surfaces were thoroughly debrided, the femoral mold was then placed and held until it hardened, and I held it under continuous finger pressure while Dr. Baires then mixed the tibial component in a staggered fashion. He molded the tibial component appropriately with the appropriate size stem; and once the femoral cement had hardened, I removed the mold; and then we placed the tibial mold with the knee flexed and then brought the knee out in extension. She had remarkably good stability and ability to flex and extend the knee. The patella component was removed with the microsagittal saw with the knee in extension and the patella everted, and then the polyethylene pegs were drilled out with a 4.5 drill. We then copiously irrigated the wound and then placed the antibiotic beads throughout the wound and then began closing the apex of the arthrotomy with two #1 polydioxanone suture (PDS) sutures and then a double-arm #1 Stratafix used to close the capsule. Then, the tourniquet was released. We irrigated again the superficial layers, and I placed some beads in the distal portion of the superficial wound where the abscess was located and localized. Then, 2-0 PDS was used to close that layer, and then familia in the skin, and then an Optifoam dressing applied followed by a bulky dressing over the top, and then the knee immobilizer applied. She was then transferred to the recovery room in stable condition. There were no intraoperative complications. Dr. Kin Baires was critical to the success of this very difficult, labor-intensive procedure by helping with appropriate soft tissue retraction, helped to remove the cement, helped to dissect the synovium, helped to mix the cement, helped to close the wound, amongst many other tasks to allow me to perform the operation smoothly and efficiently and safely.
--- NOTE | 2020-01-26 15:22 | DS.PDOC ---
Discharge Summary General Date of Admission January 17, 2020 at 18:30 Date of Discharge 01/26/20 Discharge Summary PROCEDURES PERFORMED DURING STAY: Knee surgery ADMITTING DIAGNOSES: Infection of knee Diabetes mellitus Hypertension DISCHARGE DIAGNOSES: Infection of knee Diabetes mellitus Hypertension COMPLICATIONS/CHIEF COMPLAINT: Diabetes Mellitus Infection Of Knee. HISTORY OF PRESENT ILLNESS: Patient is 59 years old female with past medical history osteoarthritis, diabetes type 2, hyperlipidemia presented to the hospital with right knee pain. Patient stated that for past few days she's been having increased right knee pain with warm sensation. She states that pain increased when she walked. Orthopedic surgeon did knee arthrocentesis today, plan to proceed with surgery on 01/19/20. In emergency room patient was found to have no leukocytosis, hemoglobin of 9.8. Knee fluid showed 208,000 leukocytes count. Patient denied fever, chills, nausea, vomiting, chest pain, palpitations diarrhea or dysuria HOSPITAL COURSE: During hospital stay following issue addressed (1) Infection of knee Most likely secondary to source of infection could be from the cracked feet. Lac-Hydrin cream BID DC Vancomycin IV, cefepime IV DC Continue ceftriaxone IV Patient tolerated procedure well knee culture streptococcus group G blood culture negative (2) Diabetes mellitus Insulin sliding scale Diabetes diet (3) Hypertension Blood pressures under control Continue home meds Due to episodes of hypotension the morning I stopped hydrochlorothiazide. DISCHARGE MEDICATIONS: Please see below. ALLERGIES: Please see below. PHYSICAL EXAMINATION ON DISCHARGE: VITAL SIGNS: Please see below. GENERAL: awake, alert, NAD HEENT: NCAT, anicteric sclera, M[place] NECK: supple, no JVD CARDIOVASCULAR EXAMINATION: NS1S2, regular rate/rhythm RESPIRATORY EXAMINATION: CTA b/l, no wheezes/rales/rhonchi ABDOMINAL EXAMINATION: positive bowel sounds x 4, NT EXTREMITIES: no cyanosis, clubbing, edema SKIN: warm, no rashes. NEUROLOGICAL EXAMINATION: AAO x 3, no motor/sensory deficits PSYCHIATRIC EXAMINATION: calm, normal affect LABORATORY DATA: Please see below. IMAGING: Technique: AP and cross-table lateral views of the right knee. Findings: Evidence for prior arthroplasty. Scattered antibiotic pellets suspected along with postsurgical soft tissue swelling, subcutaneous emphysema, and skin familia. Impression: Status post surgical revision. Electronically Signed by Ancelmo Ann MD 01/19/2020 11:41 A DD: Ancelmo Ann MD 01/19/20 1140 DT: Jade 01/19/20 1141 DS: THUY 01/19/20 1141 01/19/20 1141 PROGNOSIS: Fair ACTIVITY: [As tolerated]. DIET: Cardiac DISPOSITION: Home Health Service. DISCHARGE INSTRUCTIONS: Continue IV antibiotic therapy ITEMS TO FOLLOWUP ON ON OUTPATIENT: With PCP and orthopedic surgeon DISCHARGE CONDITION: [Stable]. TIME SPENT ON DISCHARGE: Greater than 20 minutes. Vital Signs/I&Os Vital Signs Date Time Temp Pulse Resp B/P (MAP) Pulse Ox O2 Delivery O2 Flow Rate FiO2 01/22/20 14:00 98.0 105 19 97/62 (74) 94 Room Air Microbiology Microbiology 01/19/20 Gram Stain - Final, Complete 01/19/20 Abscess Culture - Final, Complete 01/19/20 Anaerobic Culture - Final, Complete 01/19/20 Gram Stain - Final, Complete 01/19/20 Surgical Biopsy Culture - Final, Complete Streptococcus Group G 01/17/20 Blood Culture - Final, Complete NO GROWTH AFTER 5 DAYS 01/17/20 Blood Culture - Final, Complete NO GROWTH AFTER 5 DAYS 01/17/20 Gram Stain - Final, Complete 01/17/20 Body Fluid Culture - Final, Complete Streptococcus Group G Discharge Medications Scheduled Aspirin (Aspir 81) 81 Mg Tablet.dr, 81 MG PO QAM, (Reported) Atenolol (Atenolol) 25 Mg Tab, 25 MG PO QAM, (Reported) Cholecalciferol (Vitamin D3) (Vitamin D3) 1,000 Unit Tablet, 1,000 UNITS PO QAM, (Reported) Cyanocobalamin (Vitamin B-12) (Vitamin B-12) 500 Mcg Tab, 500 MCG PO QAM, (Reported) Hydrochlorothiazide (Hydrochlorothiazide) 12.5 Mg Cap, 12.5 MG PO QAM, (Reported) Lactic Acid (Katharina-Hydrolac) 222 Ml Lotion, 0 DOSE TOP BID Levothyroxine Sodium (Levothyroxine Sodium) 100 Mcg Tab, 100 MCG PO QAM, (Reported) Lisinopril (Lisinopril) 2.5 Mg Tab, 2.5 MG PO QAM, (Reported) Metformin HCl (Metformin HCl) 500 Mg Tab, 500 MG PO QAM, (Reported) Paroxetine HCl (Paroxetine HCl) 40 Mg Tab, 40 MG PO QAM, (Reported) Simvastatin (Simvastatin) 20 Mg Tab, 20 MG PO QAM, (Reported) Scheduled PRN Albuterol Sulfate (Ventolin Hfa) 18 Gm Hfa.aer.ad, 2 PUFF INH Q4H PRN for SOB/WHEEZING, (Reported) Allergies Coded Allergies: No Known Allergies (Unverified , 05/14/19) RICARDO DUVALL DO January 26, 2020 15:22
== END 2020-01-22 15:15 | disposition home health service (06) | DRG 465 ==
LOC: M ED 16:39 → M ED INP 18:30 → ENRESERV 19:17 → M MSPAV 19:50 → M MS5PR 01-19 11:52
PROVIDERS: ADMIT Internal Medicine; ATTEND Internal Medicine
PROC: 0S9C3ZZ Drainage of Right Knee Joint, Percutaneous Approach (ICD-10-PCS; 2020-01-18)
PROC: 0SHC08Z Insertion of Spacer into Right Knee Joint, Open Approach (ICD-10-PCS; 2020-01-19)
PROC: 30233N1 Transfusion of Nonautologous Red Blood Cells into Peripheral Vein, Percutaneous Approach (ICD-10-PCS; 2020-01-19)
PROC: 0SPC0JZ Removal of Synthetic Substitute from Right Knee Joint, Open Approach (ICD-10-PCS; principal; 2020-01-19 08:00)
PROC: 02HV33Z Insertion of Infusion Device into Superior Vena Cava, Percutaneous Approach (ICD-10-PCS; 2020-01-22)
DX: T84.53XA Infection and inflammatory reaction due to internal right knee prosthesis, initial encounter (principal); I10 Essential (primary) hypertension; Z79.899 Other long term (current) drug therapy; M19.90 Unspecified osteoarthritis, unspecified site; E11.9 Type 2 diabetes mellitus without complications; E78.5 Hyperlipidemia, unspecified; E03.9 Hypothyroidism, unspecified; F41.9 Anxiety disorder, unspecified; F32.9 Major depressive disorder, single episode, unspecified; J45.909 Unspecified asthma, uncomplicated; Y83.1 Surgical operation with implant of artificial internal device as the cause of abnormal reaction of the patient, or of later complication, without mention of misadventure at the time of the procedure

== ENCOUNTER → 2020-01-28 | Outpatient (REF) | payer MEDICARE, MEDICAID ==
[~2020-01-28] MED LIST changes: +LACH12LO TOP; +VITAD1000T PO
[2020-01-28 11:19] LABS: BASO % 0.6 % (0.0-1.0); EOS # 0.6 10^3/uL (0.0-0.5); EOS % 9.1 % (0.0-3.0); HEMATOCRIT 26.4 % (36.0-47.0); HEMOGLOBIN 8.2 g/dl (12.0-15.5); LYMPH # 1.3 10^3/uL (1.5-5.0); MEAN CORPUSCULAR HEMOGLOBIN 27.1 pg (27.0-33.0); MEAN CORPUSCULAR HGB CONC 31.1 g/dl (32.0-36.5); MEAN CORPUSCULAR VOLUME 87.1 fl (80.0-96.0); MONO # 0.6 10^3/uL (0.0-0.8); MONO % 9.9 % (0.0-5.0); NEUTROPHILS # 3.8 10^3/uL (1.5-8.5); NEUTROPHILS % 59.3 % (36.0-66.0); PLATELET COUNT, AUTOMATED 397 10^3/uL (150-450); RED BLOOD COUNT 3.03 10^6/uL (4.00-5.40); WHITE BLOOD COUNT 6.3 10^3/uL (4.0-10.0)
[2020-01-28 11:56] LABS: ERYTHROCYTE SEDIMENTATION RATE 109 mm/hr (0-30)
[2020-01-28 12:47] LABS: ALBUMIN 2.4 GM/DL (3.2-5.2); ALT/SGPT 13 U/L (12-78); BILIRUBIN,TOTAL 0.3 MG/DL (0.2-1.0); BLOOD UREA NITROGEN 15 MG/DL (7-18); C REACTIVE PROTEIN QUANTITATIV 1.15 MG/DL (0.00-0.30); CALCIUM LEVEL 8.6 MG/DL (8.5-10.1); CARBON DIOXIDE LEVEL 28 MEQ/L (21-32); CHLORIDE LEVEL 100 MEQ/L (98-107); CREATININE FOR GFR 0.66 MG/DL (0.55-1.30); GLOMERULAR FILTRATION RATE > 60.0 (>51); GLUCOSE, FASTING 87 MG/DL (70-100); POTASSIUM SERUM 3.6 MEQ/L (3.5-5.1); SODIUM LEVEL 138 MEQ/L (136-145); TOTAL PROTEIN 6.8 GM/DL (6.4-8.2)
== END ==
LOC: M SHH 10:25
PROVIDERS: ATTEND Internal Medicine
DX: E11.9 Type 2 diabetes mellitus without complications (principal); E78.5 Hyperlipidemia, unspecified; I10 Essential (primary) hypertension

== ENCOUNTER → 2020-02-04 | Outpatient (REF) | payer MEDICARE, MEDICAID ==
[2020-02-04 12:51] LABS: BASO # 0.1 10^3/uL (0.0-0.2); BASO % 1.5 % (0.0-1.0); EOS # 0.4 10^3/uL (0.0-0.5); EOS % 9.5 % (0.0-3.0); HEMATOCRIT 27.5 % (36.0-47.0); HEMOGLOBIN 8.5 g/dl (12.0-15.5); LYMPH # 1.1 10^3/uL (1.5-5.0); LYMPH % 27.8 % (24.0-44.0); MEAN CORPUSCULAR HEMOGLOBIN 27.6 pg (27.0-33.0); MEAN CORPUSCULAR HGB CONC 30.9 g/dl (32.0-36.5); MEAN CORPUSCULAR VOLUME 89.3 fl (80.0-96.0); MONO # 0.7 10^3/uL (0.0-0.8); MONO % 17.8 % (0.0-5.0); NEUTROPHILS # 1.7 10^3/uL (1.5-8.5); NEUTROPHILS % 42.4 % (36.0-66.0); PLATELET COUNT, AUTOMATED 276 10^3/uL (150-450); RED BLOOD COUNT 3.08 10^6/uL (4.00-5.40)
[2020-02-04 13:12] LABS: ERYTHROCYTE SEDIMENTATION RATE 68 mm/hr (0-30)
[2020-02-04 13:27] LABS: ALBUMIN 2.5 GM/DL (3.2-5.2); ALT/SGPT 25 U/L (12-78); BILIRUBIN,TOTAL 0.4 MG/DL (0.2-1.0); BLOOD UREA NITROGEN 10 MG/DL (7-18); C REACTIVE PROTEIN QUANTITATIV 1.04 MG/DL (0.00-0.30); CALCIUM LEVEL 7.6 MG/DL (8.5-10.1); CARBON DIOXIDE LEVEL 31 MEQ/L (21-32); CHLORIDE LEVEL 100 MEQ/L (98-107); CREATININE FOR GFR 0.54 MG/DL (0.55-1.30); GLOMERULAR FILTRATION RATE > 60.0 (>51); GLUCOSE, FASTING 95 MG/DL (70-100); POTASSIUM SERUM 3.7 MEQ/L (3.5-5.1); SODIUM LEVEL 136 MEQ/L (136-145); TOTAL PROTEIN 6.5 GM/DL (6.4-8.2)
== END ==
LOC: M SHH 11:54
PROVIDERS: ATTEND Internal Medicine
DX: E78.5 Hyperlipidemia, unspecified (principal); I10 Essential (primary) hypertension

== ENCOUNTER → 2020-02-11 | Outpatient (REF) | payer MEDICARE, MEDICAID ==
[2020-02-11 14:55] LABS: BASO # 0.1 10^3/uL (0.0-0.2); BASO % 1.2 % (0.0-1.0); EOS # 0.5 10^3/uL (0.0-0.5); EOS % 11.4 % (0.0-3.0); HEMATOCRIT 29.7 % (36.0-47.0); HEMOGLOBIN 9.3 g/dl (12.0-15.5); LYMPH # 0.7 10^3/uL (1.5-5.0); LYMPH % 17.4 % (24.0-44.0); MEAN CORPUSCULAR HEMOGLOBIN 27.8 pg (27.0-33.0); MEAN CORPUSCULAR HGB CONC 31.3 g/dl (32.0-36.5); MEAN CORPUSCULAR VOLUME 88.7 fl (80.0-96.0); MONO # 0.8 10^3/uL (0.0-0.8); MONO % 18.3 % (0.0-5.0); NEUTROPHILS # 2.2 10^3/uL (1.5-8.5); NEUTROPHILS % 51.2 % (36.0-66.0); PLATELET COUNT, AUTOMATED 247 10^3/uL (150-450); RED BLOOD COUNT 3.35 10^6/uL (4.00-5.40); WHITE BLOOD COUNT 4.2 10^3/uL (4.0-10.0)
[2020-02-11 15:19] LABS: ALBUMIN 2.8 GM/DL (3.2-5.2); ALT/SGPT 21 U/L (12-78); BILIRUBIN,TOTAL 0.3 MG/DL (0.2-1.0); BLOOD UREA NITROGEN 12 MG/DL (7-18); C REACTIVE PROTEIN QUANTITATIV < 0.30 MG/DL (0.00-0.30); CALCIUM LEVEL 8.3 MG/DL (8.5-10.1); CARBON DIOXIDE LEVEL 30 MEQ/L (21-32); CHLORIDE LEVEL 100 MEQ/L (98-107); CREATININE FOR GFR 0.65 MG/DL (0.55-1.30); GLOMERULAR FILTRATION RATE > 60.0 (>51); GLUCOSE, FASTING 87 MG/DL (70-100); POTASSIUM SERUM 3.7 MEQ/L (3.5-5.1); SODIUM LEVEL 136 MEQ/L (136-145); TOTAL PROTEIN 6.7 GM/DL (6.4-8.2)
[2020-02-11 15:56] LABS: ERYTHROCYTE SEDIMENTATION RATE 67 mm/hr (0-30)
== END ==
LOC: M SHH 14:32
PROVIDERS: ATTEND Internal Medicine
DX: E78.5 Hyperlipidemia, unspecified (principal); I10 Essential (primary) hypertension

== ENCOUNTER → 2020-02-18 | Outpatient (REF) | payer MEDICARE, MEDICAID ==
[2020-02-18 10:30] LABS: BASO # 0.1 10^3/uL (0.0-0.2); BASO % 1.9 % (0.0-1.0); EOS # 0.6 10^3/uL (0.0-0.5); EOS % 13.7 % (0.0-3.0); HEMATOCRIT 30.4 % (36.0-47.0); HEMOGLOBIN 9.7 g/dl (12.0-15.5); LYMPH % 23.1 % (24.0-44.0); MEAN CORPUSCULAR HEMOGLOBIN 28.4 pg (27.0-33.0); MEAN CORPUSCULAR HGB CONC 31.9 g/dl (32.0-36.5); MEAN CORPUSCULAR VOLUME 88.9 fl (80.0-96.0); MONO # 0.8 10^3/uL (0.0-0.8); MONO % 19.5 % (0.0-5.0); NEUTROPHILS # 1.7 10^3/uL (1.5-8.5); NEUTROPHILS % 41.6 % (36.0-66.0); PLATELET COUNT, AUTOMATED 242 10^3/uL (150-450); RED BLOOD COUNT 3.42 10^6/uL (4.00-5.40); WHITE BLOOD COUNT 4.2 10^3/uL (4.0-10.0)
[2020-02-18 10:35] LABS: ALT/SGPT 17 U/L (12-78); BILIRUBIN,TOTAL 0.3 MG/DL (0.2-1.0); BLOOD UREA NITROGEN 14 MG/DL (7-18); C REACTIVE PROTEIN QUANTITATIV 0.69 MG/DL (0.00-0.30); CALCIUM LEVEL 8.8 MG/DL (8.5-10.1); CARBON DIOXIDE LEVEL 30 MEQ/L (21-32); CHLORIDE LEVEL 101 MEQ/L (98-107); CREATININE FOR GFR 0.68 MG/DL (0.55-1.30); GLOMERULAR FILTRATION RATE > 60.0 (>51); GLUCOSE, FASTING 80 MG/DL (70-100); POTASSIUM SERUM 3.7 MEQ/L (3.5-5.1); SODIUM LEVEL 136 MEQ/L (136-145); TOTAL PROTEIN 6.9 GM/DL (6.4-8.2)
[2020-02-18 10:56] LABS: ERYTHROCYTE SEDIMENTATION RATE 63 mm/hr (0-30)
== END ==
LOC: M SHH 10:06
PROVIDERS: ATTEND Internal Medicine
DX: M00.2 Other streptococcal arthritis and polyarthritis (principal); E11.9 Type 2 diabetes mellitus without complications; E78.5 Hyperlipidemia, unspecified; I10 Essential (primary) hypertension

== ENCOUNTER → 2020-02-25 | Outpatient (REF) | payer MEDICARE, MEDICAID ==
[2020-02-25 10:14] LABS: BASO # 0.1 10^3/uL (0.0-0.2); BASO % 2.4 % (0.0-1.0); EOS # 0.5 10^3/uL (0.0-0.5); EOS % 11.7 % (0.0-3.0); HEMATOCRIT 31.9 % (36.0-47.0); HEMOGLOBIN 9.7 g/dl (12.0-15.5); LYMPH # 1.1 10^3/uL (1.5-5.0); LYMPH % 24.3 % (24.0-44.0); MEAN CORPUSCULAR HEMOGLOBIN 27.7 pg (27.0-33.0); MEAN CORPUSCULAR HGB CONC 30.4 g/dl (32.0-36.5); MEAN CORPUSCULAR VOLUME 91.1 fl (80.0-96.0); MONO # 0.8 10^3/uL (0.0-0.8); MONO % 16.5 % (0.0-5.0); NEUTROPHILS # 2.1 10^3/uL (1.5-8.5); NEUTROPHILS % 44.7 % (36.0-66.0); PLATELET COUNT, AUTOMATED 280 10^3/uL (150-450); WHITE BLOOD COUNT 4.6 10^3/uL (4.0-10.0)
[2020-02-25 10:22] LABS: ALBUMIN 2.8 GM/DL (3.2-5.2); ALT/SGPT 15 U/L (12-78); BILIRUBIN,TOTAL 0.3 MG/DL (0.2-1.0); BLOOD UREA NITROGEN 13 MG/DL (7-18); C REACTIVE PROTEIN QUANTITATIV < 0.30 MG/DL (0.00-0.30); CALCIUM LEVEL 8.7 MG/DL (8.5-10.1); CARBON DIOXIDE LEVEL 31 MEQ/L (21-32); CHLORIDE LEVEL 103 MEQ/L (98-107); CREATININE FOR GFR 0.64 MG/DL (0.55-1.30); GLOMERULAR FILTRATION RATE > 60.0 (>51); GLUCOSE, FASTING 87 MG/DL (70-100); SODIUM LEVEL 140 MEQ/L (136-145); TOTAL PROTEIN 6.5 GM/DL (6.4-8.2)
[2020-02-25 10:37] LABS: ERYTHROCYTE SEDIMENTATION RATE 49 mm/hr (0-30)
== END ==
LOC: M SHH 09:49
PROVIDERS: ATTEND Internal Medicine
DX: M00.261 Other streptococcal arthritis, right knee (principal); E11.9 Type 2 diabetes mellitus without complications; E78.5 Hyperlipidemia, unspecified; I10 Essential (primary) hypertension

== ENCOUNTER → 2020-03-10 | Outpatient (REF) | payer MEDICARE ==
[~2020-03-10] MED LIST changes: -ASPI81TA85 PO; +ASPI81TA86 PO; +D31000TA2 PO; +ECOT81TA5 PO; +FISH10002 PO; +OMEG1CAP16 PO; -VITAD1000T PO
[2020-03-10 10:57] LABS: BASO # 0.1 10^3/uL (0.0-0.2); EOS # 0.3 10^3/uL (0.0-0.5); EOS % 5.3 % (0.0-3.0); HEMATOCRIT 32.9 % (36.0-47.0); HEMOGLOBIN 10.1 g/dl (12.0-15.5); LYMPH # 1.4 10^3/uL (1.5-5.0); LYMPH % 22.4 % (24.0-44.0); MEAN CORPUSCULAR HGB CONC 30.7 g/dl (32.0-36.5); MEAN CORPUSCULAR VOLUME 91.1 fl (80.0-96.0); MONO # 0.7 10^3/uL (0.0-0.8); MONO % 11.4 % (0.0-5.0); NEUTROPHILS # 3.6 10^3/uL (1.5-8.5); NEUTROPHILS % 59.6 % (36.0-66.0); PLATELET COUNT, AUTOMATED 338 10^3/uL (150-450); RED BLOOD COUNT 3.61 10^6/uL (4.00-5.40); WHITE BLOOD COUNT 6.1 10^3/uL (4.0-10.0)
[2020-03-10 11:17] LABS: ERYTHROCYTE SEDIMENTATION RATE 60 mm/hr (0-30)
[2020-03-10 11:24] LABS: C REACTIVE PROTEIN QUANTITATIV 0.43 MG/DL (0.00-0.30); PERCENT SATURATION 15.2 % (13.2-45.0)
[2020-03-10 12:51] LABS: FOLATE 13.9 NG/ML
== END ==
LOC: M SFHCPLAZ 08:57
PROVIDERS: ATTEND Internal Medicine Infectious Disease
DX: T84.59XD Infection and inflammatory reaction due to other internal joint prosthesis, subsequent encounter (principal); D64.9 Anemia, unspecified
CPT/HCPCS: 36415; 82607; 82746; 83550; 85025; 85652; 86140; G0463

== ENCOUNTER → 2020-03-24 | Outpatient (REF) | payer MEDICARE ==
[2020-04-18 20:33] LABS: SOURCE, BODY FLUID RT KNEE; SYNOVIAL FLUID COLOR PINK (YELLOW)
[2020-04-25 13:37] LABS: SOURCE, BODY FLUID GLUCOSE RT KNEE
== END ==
LOC: M LAB REF 12:42
PROVIDERS: ATTEND Family Medicine
DX: T84.59XD Infection and inflammatory reaction due to other internal joint prosthesis, subsequent encounter (principal); Z96.651 Presence of right artificial knee joint

== ENCOUNTER → 2020-04-23 | Outpatient (CLI) | payer MEDICARE | LOC: M LABSMTC 12:39 | PROVIDERS: ATTEND Anesthesiology | DX: Z01.812 Encounter for preprocedural laboratory examination (principal); Z20.828 Contact with and (suspected) exposure to other viral communicable diseases ==

== ENCOUNTER → 2020-04-23 | Outpatient (CLI) | payer MEDICARE ==
[2020-04-23 11:07] LABS: HEMATOCRIT 32.2 % (36.0-47.0); HEMOGLOBIN 10.4 g/dl (12.0-15.5); MEAN CORPUSCULAR HEMOGLOBIN 28.3 pg (27.0-33.0); MEAN CORPUSCULAR HGB CONC 32.3 g/dl (32.0-36.5); MEAN CORPUSCULAR VOLUME 87.5 fl (80.0-96.0); PLATELET COUNT, AUTOMATED 279 10^3/uL (150-450); RED BLOOD COUNT 3.68 10^6/uL (4.00-5.40); WHITE BLOOD COUNT 13.4 10^3/uL (4.0-10.0)
[2020-04-23 11:17] LABS: INR 1.1; PROTHROMBIN TIME 14.4 SECONDS (11.8-14.0)
[2020-04-23 11:31] LABS: ALBUMIN 3.5 GM/DL (3.2-5.2); ALT/SGPT 18 U/L (12-78); BILIRUBIN,TOTAL 0.6 MG/DL (0.2-1.0); BLOOD UREA NITROGEN 16 MG/DL (7-18); CALCIUM LEVEL 9.2 MG/DL (8.5-10.1); CARBON DIOXIDE LEVEL 28 MEQ/L (21-32); CHLORIDE LEVEL 103 MEQ/L (98-107); GLOMERULAR FILTRATION RATE > 60.0 (>51); GLUCOSE, FASTING 117 MG/DL (70-100); POTASSIUM SERUM 3.7 MEQ/L (3.5-5.1); SODIUM LEVEL 139 MEQ/L (136-145); TOTAL PROTEIN 7.7 GM/DL (6.4-8.2)
[2020-04-23 11:35] LABS: ERYTHROCYTE SEDIMENTATION RATE 77 mm/hr (0-30)
--- NOTE | 2020-04-30 12:17 | REP ---
CHEST X-RAY CLINICAL: Preoperative assessment. TECHNIQUE: PA and lateral. COMPARISON: 01/17/2020. FINDINGS: Mediastinum and cardiac silhouette normal. Lung curtis clear. No acute consolidation, effusion, or pneumothorax. Skeletal structures are intact. IMPRESSION: No acute cardiopulmonary process or focal consolidation. MTDD
== END ==
LOC: M LAB 09:20
PROVIDERS: ATTEND Orthopaedic Surgery
DX: T84.53XA Infection and inflammatory reaction due to internal right knee prosthesis, initial encounter (principal); Z96.651 Presence of right artificial knee joint; Y83.1 Surgical operation with implant of artificial internal device as the cause of abnormal reaction of the patient, or of later complication, without mention of misadventure at the time of the procedure; E11.9 Type 2 diabetes mellitus without complications; Z11.59 Encounter for screening for other viral diseases
CPT/HCPCS: 36415; 71046; 80053; 85027; 85610; 85652; C9803; U0003

== ENCOUNTER 2020-04-28 06:28 | Inpatient (IN) | payer MEDICARE ==
[~2020-04-28] VITALS: Ht 160 cm; Wt 81.1 kg
[2020-04-28] VITALS (7 sets, daily range): BP systolic 119–130; BP diastolic 64–74
[~2020-04-28 06:28] MED LIST changes: -ECOT81TA5 PO; -FISH10002 PO; +fentaNYL 100 MCG/2 ML INJECTION (J3010) IV SCH
[2020-04-28] MEDS ORDERED: ceFAZolin 2 GM/D5W 50 ML IV BAG (J0690 PER 500MG) As Ordered ONE (06:47)
[2020-04-28] MEDS ORDERED: ACETAMINOPHEN 500 MG TAB As Ordered ONE (06:47)
[2020-04-28] MEDS ORDERED: fentaNYL 100 MCG/2 ML INJECTION (J3010) As Ordered ONE ×2 (06:50→07:14)
[2020-04-28] MEDS ORDERED: MIDAZOLAM INJ 2MG/2ML VIAL (J2250 PER 1MG) As Ordered ONE ×2 (06:50→07:14)
[2020-04-28] MEDS ORDERED: ceFAZolin SOD 2 GM in IV 1 EA IV ONE (07:00)
[2020-04-28] MEDS ORDERED: ACETAMINOPHEN 500 MG TAB PO ONE (07:00)
[2020-04-28] MEDS ORDERED: LIDOCAINE 2% 100MG/5ML SDV (FOR ANES.) As Ordered ONE (07:14)
[2020-04-28] MEDS ORDERED: propofoL 200 MG/20 ML VIAL As Ordered ONE ×2 (07:14→08:53)
[2020-04-28] MEDS ORDERED: ONDANSETRON 4MG/2ML VIAL As Ordered ONE (07:14)
[2020-04-28] MEDS ORDERED: TRANEXAMIC ACID 100 MG/ML 10ML VIAL As Ordered ONE (07:17)
[2020-04-28] MEDS ORDERED: BUPIVACAINE HCL 0.25% 10ML VIAL As Ordered ONE (07:17)
[2020-04-28] MEDS ORDERED: ceFAZolin 1GM VIAL (J0690 PER 500MG) As Ordered ONE (07:17)
[2020-04-28] MEDS ORDERED: EPINEPHrine INJ 1 MG/ML 1ML AMP As Ordered ONE (07:18)
[2020-04-28] MEDS ORDERED: BUPIVACAINE LIPOSOME/PF 1.3% 20ML VIAL (13.3MG/ML)(EXPAREL)(C9290 PER1MG) As Ordered ONE (07:18)
[2020-04-28] MEDS: MIDAZOLAM INJ 2MG/2ML VIAL (J2250 PER 1MG) IV SCH ×2 (07:30→07:32)
[2020-04-28] MEDS: atenoloL 25 MG TAB PO SCH (09:00)
[2020-04-28] MEDS: LISINOPRIL *2.5 MG* TAB PO SCH (09:00)
[2020-04-28] MEDS ORDERED: MEPERIDINE INJ 25 MG/ML VIAL (J2175) As Ordered ONE (10:42)
[2020-04-28] MEDS ORDERED: oxyCODONE 5MG TAB As Ordered ONE (10:42)
[2020-04-28] MEDS: MEPERIDINE INJ 25 MG/ML VIAL (J2175) IV PRN ×2 (10:45→10:50)
[2020-04-28] MEDS: oxyCODONE 5MG TAB PO PRN ×2 (10:45→11:15)
[2020-04-28] MEDS ORDERED: PERCOCET 5MG/325MG TAB PO PRN (11:00)
[2020-04-28] MEDS ORDERED: METOCLOPRAMIDE INJ 10MG/2ML VIAL (J2765 PER 1) IV PRN (11:00)
[2020-04-28] MEDS ORDERED: LR 1,000 ML IV SCH ×2 (11:00)
[2020-04-28] MEDS ORDERED: fentaNYL 100 MCG/2 ML INJECTION (J3010) IV PRN (11:00)
[2020-04-28] MEDS ORDERED: ONDANSETRON 4MG/2ML VIAL IV PRN ×2 (11:00)
[2020-04-28] MEDS ORDERED: MORPHINE 2 MG/ML 1ML VIAL (J2270) IV PRN (11:00)
--- NOTE | 2020-04-28 11:27 | HPEPDOC ---
[facility] Medical History & Physical Date of Admission Apr 28, 2020 Date of Service: Apr 28, 2020 Attending Physician: Elina Rodney MD History and Physical HPI: Patient is a 59 y/o F with PMH of HTN, OA with right total knee replacement and revision in past, asthma, HLD, anxiety/depression who had elective right total knee arthroplasty and revision on 04/28/20. Patient has history of right total knee replacement 04/2019, right total knee resection and plantation of abx cemented spacer 12/2019. She was consented for elective right knee cement spacer removal and revision of knee arthroplasty, which was done today with no complications. Medicine team was consulted for medical management with orthopedic surgery primary. Post-operatively, patient denies chest pain, sob, n/v/d, fevers, chills, recent sick contact or hospitalizations, abdominal pain, dizziness, lightheadedness. VS remained stable. She was started back on all home medications except metformin. In place of metformin, she was placed on insulin sliding scale with AC/HS finger sticks. PAST MEDICAL HISTORY: 1. Osteoarthritis 2. Hypertension 3. Asthma 4. Dyslipidemia 5. Anxiety 6. depression 7. Diabetes mellitus 8. Hypothyroidism 9. Anemia 10. Vitamin B12 deficiency PAST SURGICAL HISTORY: 1. Right total knee arthroplasty and revision 04/28/20 2. Plate and pin implant in the left foot. 2. Right rotator cuff surgery. 3. Bilateral carpal tunnel release. 4. Right total knee replacement 04/2019 5. Right total knee resection and plantation of abx cemented spacer 12/2019 FAMILY HISTORY: mother- ESRD, CAD. at 82 y/o father- varicose veins . at 93 y/o brother- colon cancer. at 63 y/o SOCIAL HISTORY: Denies smoking history, illicit drug use. Social alcohol use. Lives in [place], [place] alone, apartment. Normally uses a walker and a cane if needed. Full Code. No health care proxy. PCP- Jarod Baires MD ALLERGIES: None CURRENT MEDICATIONS: Please see below. PHYSICAL EXAMINATION: VITAL SIGNS: Please see below GENERAL APPEARANCE: well nourished, NAD, resting in bed HEENT: AT/NC, PERRLA, EOM intact, moist oral mucosa CARDIOVASCULAR: S1S2 +, no M/R/G LUNGS: CTAB, no WRR ABDOMEN: soft, obese, nontender, nondistended, BS +4 quad MUSCULOSKELETAL: no atrophy EXTREMITIES: Right lower ext wrapped in ivan bandage, mild swelling, pulses + in all extremities. NEUROLOGICAL: CN 2-12 intact, no focal deficits PSYCHIATRIC: Mood and affect appropriate LABORATORY DATA: No new labs ASSESSMENT: 59 y/o F with PMH of OA, HTN, HLD admitted for observation s/p elective right knee cement spacer removal and revision of knee arthroplasty. PLAN: 1. Right knee pain, s/p elective right knee cement spacer removal and revision of right total knee arthroplasty. PT/OT, pain control, incentive spirometer, orthopedic surgery primary. 2. Hypertension. Stable. Resume home meds. 3. Asthma. Stable. Albuterol PRN. 4. Dyslipidemia. C/w statin. 5. Anxiety/depression. C/w home med. 6. Diabetes mellitus II. Holding PO metformin while in hospital. Started on ISS, AC/HS finger sticks, consistent carb diet. 7. Hypothyroidism. C/w levothyroxine. 9. Anemia/Vitamin B12 deficiency. C/w supplementation at discharge. 10. DVT px. ASA BID. DISPOSITION: Orthopedic primary service. At this time, chronic medical issues appear stable. If we are needed to reassess again, please do not hesitate to call us. Vital Signs Vital Signs Date Time Temp Pulse Resp B/P (MAP) Pulse Ox O2 Delivery O2 Flow Rate FiO2 04/28/20 11:15 76 16 114/56 (75) 96 Room Air 04/28/20 11:15 96.7 3.0 Laboratory Data Microbiology Microbiology 04/28/20 Anaerobic Culture, Received Pending 04/28/20 Gram Stain - Final, Resulted 04/28/20 Wound Culture, Resulted Pending Home Medications Scheduled Aspirin (Aspir 81) 81 Mg Tablet.dr, 81 MG PO QAM Atenolol (Atenolol) 25 Mg Tab, 25 MG PO QAM Cholecalciferol (Vitamin D3) (Vitamin D3) 1,000 Unit Tablet, 1,000 UNITS PO QAM Cyanocobalamin (Vitamin B-12) (Vitamin B-12) 500 Mcg Tab, 500 MCG PO QAM Hydrochlorothiazide (Hydrochlorothiazide) 12.5 Mg Cap, 12.5 MG PO QAM Levothyroxine Sodium (Levothyroxine Sodium) 100 Mcg Tab, 100 MCG PO QAM Lisinopril (Lisinopril) 2.5 Mg Tab, 2.5 MG PO QAM Metformin HCl (Metformin HCl) 500 Mg Tab, 500 MG PO QAM Paroxetine HCl (Paroxetine HCl) 40 Mg Tab, 40 MG PO QAM Simvastatin (Simvastatin) 20 Mg Tab, 20 MG PO QAM Miscellaneous Medications [place]-3/Dha/Epa/Fish Oil ([place] 3 500 Softgel) 1 Each Capsule, 1 CAP PO Allergies Coded Allergies: No Known Allergies (Unverified , 04/25/20) A-FIB/CHADSVASC A-FIB History Current/History of A-Fib/PAF?: No Current PO Anticoag Therapy: No Age/Risk Factor Scoring CHADSVASC: CHADSVASC Response (Comments) Value Age Risk Factor Age < 65 years old 0 Gender Risk Factor Female 1 Hx of CHF No 0 Hx of HTN Yes 1 Hx of Stroke/TIA/or VTE No 0 Hx of Diabetes Yes 1 Hx of Vascular Disease No 0 Total 3 Treatment Treatment ordered: Other Other anticoagulant ordered: ASA BID Elina Rodney MD Apr 28, 2020 11:27
[2020-04-28] MEDS ORDERED: GLUCOSE 4GM CHEW TABLET PO PRN (11:45)
[2020-04-28] MEDS ORDERED: GLUCAGON INJ 1MG VIAL SC PRN (11:45)
[2020-04-28] MEDS ORDERED: DEXTROSE 50% 50 ML SYRINGE IV PRN (11:45)
[2020-04-28] MEDS: HumaLOG INSULIN (NovoLOG) PER UNIT SC SCH ×3 (12:00→20:43)
[2020-04-28] MEDS ORDERED: ALBUTEROL 90 MCG/ACT 8GM HFA INHALER INH PRN (12:00)
[2020-04-28] MEDS ORDERED: dexameTHASONE 10MG/1ML VIAL PRES.FREE (J1100 PER 1MG) ONE (12:05)
[2020-04-28] MEDS ORDERED: ROPIvacaine 0.5% 30ML INJECTION (J2795 PER 1MG) ONE (12:05)
[2020-04-28] MEDS ORDERED: EPINEPHrine INJ 1 MG/ML 1ML AMP ONE (12:05)
[2020-04-28] MEDS: LEVOTHYROXINE 100MCG TABLET (0.1MG) PO SCH (14:49)
[2020-04-28] MEDS: hydroCHLOROthiazide 12.5 MG CAPSULE PO SCH (14:49)
[2020-04-28] MEDS: SIMVASTATIN 20 MG TAB PO SCH (14:50)
[2020-04-28] MEDS: PARoxetine 20 MG TAB PO SCH (14:50)
[2020-04-28] MEDS: VANCOMYCIN HCL 1,000 MG, VIAL MATE ADAPTER 1 EACH in D5W 250 ML IV SCH (14:51)
[2020-04-28] MEDS ORDERED: VANCOMYCIN HCL 500 MG in D5W MINI-BAG PLUS 100 ML IV ONE (15:00)
[2020-04-28] MEDS: ACETAMINOPHEN TAB 650MG DOSE (2X325MG) PO PRN (15:01)
[2020-04-28] MEDS: ASPIRIN 81 MG CHEW TABLET PO SCH (20:48)
[2020-04-28] MEDS: PERCOCET 5MG/325MG TAB PO PRN (20:49)
[2020-04-29 02:00] VITALS: BP 128/70
[2020-04-29] MEDS: VANCOMYCIN HCL 1,000 MG, VIAL MATE ADAPTER 1 EACH in D5W 250 ML IV SCH ×2 (02:41→14:17)
[2020-04-29] MEDS: PERCOCET 5MG/325MG TAB PO PRN ×2 (03:26→21:00)
[2020-04-29 06:00] VITALS: BP 127/72
[2020-04-29 07:25] LABS: HEMATOCRIT 28.9 % (36.0-47.0); HEMOGLOBIN 9.2 g/dl (12.0-15.5); MEAN CORPUSCULAR HEMOGLOBIN 27.6 pg (27.0-33.0); MEAN CORPUSCULAR HGB CONC 31.8 g/dl (32.0-36.5); MEAN CORPUSCULAR VOLUME 86.8 fl (80.0-96.0); PLATELET COUNT, AUTOMATED 319 10^3/uL (150-450); RED BLOOD COUNT 3.33 10^6/uL (4.00-5.40); WHITE BLOOD COUNT 13.7 10^3/uL (4.0-10.0)
[2020-04-29 07:50] LABS: ALBUMIN 2.9 GM/DL (3.2-5.2); ALT/SGPT 17 U/L (12-78); BILIRUBIN,TOTAL 0.2 MG/DL (0.2-1.0); BLOOD UREA NITROGEN 14 MG/DL (7-18); CALCIUM LEVEL 8.8 MG/DL (8.5-10.1); CARBON DIOXIDE LEVEL 32 MEQ/L (21-32); CHLORIDE LEVEL 104 MEQ/L (98-107); CREATININE FOR GFR 0.77 MG/DL (0.55-1.30); GLOMERULAR FILTRATION RATE > 60.0 (>51); GLUCOSE, FASTING 112 MG/DL (70-100); POTASSIUM SERUM 4.5 MEQ/L (3.5-5.1); SODIUM LEVEL 140 MEQ/L (136-145); TOTAL PROTEIN 7.1 GM/DL (6.4-8.2)
[2020-04-29] MEDS: LISINOPRIL *2.5 MG* TAB PO SCH (09:52)
[2020-04-29] MEDS: hydroCHLOROthiazide 12.5 MG CAPSULE PO SCH (09:52)
[2020-04-29] MEDS: PARoxetine 20 MG TAB PO SCH (09:52)
[2020-04-29] MEDS: MIRALAX *UNIT DOSE* 17GM PACKET PO SCH (09:52)
[2020-04-29] MEDS: HumaLOG INSULIN (NovoLOG) PER UNIT SC SCH ×4 (09:52→20:59)
[2020-04-29] MEDS: MOM 30ML SUSPENSION UDC PO SCH (09:52)
[2020-04-29] MEDS: ASPIRIN 81 MG CHEW TABLET PO SCH ×2 (09:52→20:58)
[2020-04-29] MEDS: LEVOTHYROXINE 100MCG TABLET (0.1MG) PO SCH (09:53)
[2020-04-29] MEDS: atenoloL 25 MG TAB PO SCH (09:53)
[2020-04-29] MEDS: SIMVASTATIN 20 MG TAB PO SCH (09:53)
[2020-04-29 10:00] VITALS: BP 128/72
[2020-04-29 14:00] VITALS: BP 127/72
[2020-04-29] MEDS: ACETAMINOPHEN TAB 650MG DOSE (2X325MG) PO PRN (14:19)
--- NOTE | 2020-04-29 15:00 | IPNPDOC ---
Text Note Date of Service The patient was seen on 04/29/20. NOTE SBJECTIVE: -No acute complaints, POD 2 OBJECTIVE: VITAL SIGNS: Reviewed. HDS, afebrile. GENERAL APPEARANCE: well nourished, NAD, resting in bed HEENT: AT/NC, PERRLA, EOM intact, moist oral mucosa CARDIOVASCULAR: RRR, no M/R/G LUNGS: CTAB ABDOMEN: soft, obese, nontender, nondistended MUSCULOSKELETAL: no atrophy EXTREMITIES: Right lower ext wrapped in ivan bandage, mild swelling, pulses + in all extremities. NEUROLOGICAL: CN 2-12 intact, no focal deficits PSYCHIATRIC: AOx3, Mood and affect appropriate LABORATORY DATA: WBC 13.7 Hgb 9.2 platelets 319 na 140 k 4.5 Cr 0.77 R knee fluid culture with a few WBCs, no growth to date, no organisms on gram stain. ASSESSMENT: 59 y/o F with PMH of OA, HTN, HLD admitted for observation s/p elective right knee cement spacer removal and revision of knee arthroplasty. PLAN: 1. Right knee pain, s/p elective right knee cement spacer removal and revision of right total knee arthroplasty. PT/OT, pain control, incentive spirometer, orthopedic surgery primary managing pain, DVT ppx. 2. Hypertension. Stable. continue home meds. 3. Asthma. Stable. Albuterol PRN. 4. Dyslipidemia. C/w statin. 5. Anxiety/depression. C/w home med. 6. Diabetes mellitus II. Holding PO metformin while in hospital. On ISS, AC/HS finger sticks, consistent carb diet. 7. Hypothyroidism. C/w levothyroxine. 9. Anemia/Vitamin B12 deficiency. C/w supplementation at discharge. 10. DVT px. ASA BID. DISPOSITION: Orthopedic primary service. At this time, chronic medical issues appear stable. VS,Fishbone, I+O VS, Fishbone, I+O Laboratory Tests 04/29/20 06:33 Vital Signs Date Time Temp Pulse Resp B/P (MAP) Pulse Ox O2 Delivery O2 Flow Rate FiO2 04/29/20 06:00 97.8 83 17 127/72 (90) 96 Room Air 04/28/20 11:15 3.0 I&O- Last 24 Hours up to 6 AM 04/29/20 06:00 Intake Total 2900 ml Output Total 1500 ml Balance 1400 ml KAHTLEEN BROOKS MD Apr 29, 2020 09:09
[2020-04-29 22:00] VITALS: BP 121/66
[2020-04-30] MEDS: VANCOMYCIN HCL 1,000 MG, VIAL MATE ADAPTER 1 EACH in D5W 250 ML IV SCH (01:51)
[2020-04-30 06:00] VITALS: BP 114/64
[2020-04-30] MEDS ORDERED: PERC5TAB12 PO (06:23)
[2020-04-30] MEDS ORDERED: ECOT81TA5 PO (06:23)
[2020-04-30 06:48] LABS: HEMATOCRIT 27.4 % (36.0-47.0); HEMOGLOBIN 8.8 g/dl (12.0-15.5); MEAN CORPUSCULAR HGB CONC 32.1 g/dl (32.0-36.5); MEAN CORPUSCULAR VOLUME 87.3 fl (80.0-96.0); PLATELET COUNT, AUTOMATED 302 10^3/uL (150-450); RED BLOOD COUNT 3.14 10^6/uL (4.00-5.40); WHITE BLOOD COUNT 11.6 10^3/uL (4.0-10.0)
[2020-04-30 07:13] LABS: ALBUMIN 2.8 GM/DL (3.2-5.2); ALT/SGPT 13 U/L (12-78); BILIRUBIN,TOTAL 0.3 MG/DL (0.2-1.0); BLOOD UREA NITROGEN 11 MG/DL (7-18); CALCIUM LEVEL 8.8 MG/DL (8.5-10.1); CARBON DIOXIDE LEVEL 31 MEQ/L (21-32); CHLORIDE LEVEL 104 MEQ/L (98-107); CREATININE FOR GFR 0.76 MG/DL (0.55-1.30); GLOMERULAR FILTRATION RATE > 60.0 (>51); GLUCOSE, FASTING 87 MG/DL (70-100); POTASSIUM SERUM 3.8 MEQ/L (3.5-5.1); SODIUM LEVEL 141 MEQ/L (136-145); TOTAL PROTEIN 6.8 GM/DL (6.4-8.2)
[2020-04-30] MEDS: HumaLOG INSULIN (NovoLOG) PER UNIT SC SCH ×2 (07:30→12:00)
[2020-04-30] MEDS: hydroCHLOROthiazide 12.5 MG CAPSULE PO SCH (07:58)
[2020-04-30] MEDS: ASPIRIN 81 MG CHEW TABLET PO SCH (07:58)
[2020-04-30] MEDS: SIMVASTATIN 20 MG TAB PO SCH (07:58)
[2020-04-30 07:59] VITALS: BP 114/64
[2020-04-30] MEDS: PARoxetine 20 MG TAB PO SCH (07:59)
[2020-04-30] MEDS: atenoloL 25 MG TAB PO SCH (07:59)
[2020-04-30] MEDS: LISINOPRIL *2.5 MG* TAB PO SCH (07:59)
[2020-04-30] MEDS: MOM 30ML SUSPENSION UDC PO SCH (08:00)
[2020-04-30] MEDS: LEVOTHYROXINE 100MCG TABLET (0.1MG) PO SCH (08:00)
[2020-04-30] MEDS: MIRALAX *UNIT DOSE* 17GM PACKET PO SCH (08:00)
--- NOTE | 2020-04-30 12:36 | IPNPDOC ---
Text Note Date of Service The patient was seen on 04/30/20. NOTE SUBJECTIVE: -No acute complaints, POD 3 OBJECTIVE: VITAL SIGNS: Reviewed. HDS, afebrile. GENERAL APPEARANCE: well nourished, NAD, resting in bed HEENT: AT/NC, PERRLA, EOM intact, moist oral mucosa CARDIOVASCULAR: RRR, no M/R/G LUNGS: CTAB ABDOMEN: soft, obese, nontender, nondistended MUSCULOSKELETAL: no atrophy EXTREMITIES: Right lower ext wrapped in ivan bandage, mild swelling, pulses + in all extremities. NEUROLOGICAL: CN 2-12 intact, no focal deficits PSYCHIATRIC: AOx3, Mood and affect appropriate LABORATORY DATA: reviewed. Stable anemia hgb 8.8 R knee fluid culture with a few WBCs, no growth to date, no organisms on gram stain. ASSESSMENT: 59 y/o F with PMH of OA, HTN, HLD admitted for observation s/p elective right knee cement spacer removal and revision of knee arthroplasty. PLAN: 1. Right knee pain, s/p elective right knee cement spacer removal and revision of right total knee arthroplasty. PT/OT, pain control, incentive spirometer, orthopedic surgery primary managing pain, DVT ppx. 2. Hypertension. Stable. continue home meds. 3. Asthma. Stable. Albuterol PRN. 4. Dyslipidemia. C/w statin. 5. Anxiety/depression. C/w home med. 6. Diabetes mellitus II. Holding PO metformin while in hospital. On ISS, AC/HS finger sticks, consistent carb diet. 7. Hypothyroidism. C/w levothyroxine. 9. Anemia/Vitamin B12 deficiency. C/w supplementation at discharge. 10. DVT px. ASA BID. DISPOSITION: Orthopedic primary service. Stable for discharge from medical perspective VS,Fishbone, I+O VS, Fishbone, I+O Laboratory Tests 04/30/20 06:27 Vital Signs Date Time Temp Pulse Resp B/P (MAP) Pulse Ox O2 Delivery O2 Flow Rate FiO2 04/30/20 07:59 114/64 04/30/20 07:59 83 04/30/20 06:00 97.7 17 94 Room Air 04/28/20 11:15 3.0 I&O- Last 24 Hours up to 6 AM 04/30/20 05:59 Intake Total 1570 ml Output Total 1750 ml Balance -180 ml KUPAKUWANA-ARELY,KATHLEEN V. MD Apr 30, 2020 08:49
[2020-04-30 14:00] VITALS: BP 126/65
--- NOTE | 2020-05-21 16:41 | RO ---
DATE OF OPERATION: 04/28/2020 PREOPERATIVE DIAGNOSIS: Status post resection arthroplasty with antibiotics spacer for infection, right knee. POSTOPERATIVE DIAGNOSIS: Status post resection arthroplasty with antibiotics spacer for infection, right knee. PROCEDURES: * Removal of antibiotic spacer prosthesis, right knee. * Revision arthroplasty of a total right knee replacement. SURGEON: Gris Jones M.D. PILE TRIMMER: Kin Baires M.D. and JOSIAH Lyon. ANESTHESIA: Right femoral nerve block with a smile. COMPLICATIONS: None. ESTIMATED BLOOD LOSS: 20 mL. SPECIMENS: Intraoperative frozen section and intraoperative Gram stain, culture and sensitivity aerobically and anaerobically. PROSTHESIS USED: Size 3 TC3 femoral component with a 12 x 75 femoral stem with a size 2.5 tibial tray with a 10 mm stem by 75 mm with a 10 mm rotating platform posterior stabilized polyethylene insert. FINDINGS: The intraoperative frozen section showed 0-1 white blood cells per high-powered field, basically rare white blood cells. There was no evidence of any purulence or infection. Thus, we proceeded with a revision. PROCEDURE: Antibiotics were given intravenously preoperatively. Successful right femoral nerve block and spinal anesthetic were induced. Tourniquet was wrapped around the thigh and not inflated. Right lower extremity was carefully prepped and draped in the usual sterile fashion. After appropriate timeout, the tourniquet was inflated and we made a longitudinal incision through the previous scar bed. Thick flaps of skin were dissected off the underlying fascia and then an arthrotomy performed. A synovectomy in the suprapatellar pouch and along the infrapatellar area and subperiosteal dissection around the proximal medial and lateral tibial plateaus was performed to allow us to eventually flex the knee and sublux the patella laterally. We removed the tibial tray without difficulty and then removed the femoral component without difficulty. We then placed the starter reamer down the center of the tibial canal and she was actually very tight with very sclerotic bone for this young, 59-year-old patient. So, 10 mm was the max we could get down. We got it down between the second and the third villatoro and then the conical reamer was placed, and then we placed the tibial cutting guide on the 10 mm trial stem and used the batwing to adjust our resection level so that it was just flush with the bone. The block was pinned into position and the proximal tibia osteotomy was performed reestablishing a nice, smooth surface. The trial tray was then placed followed by the stephanie but because of her severe sclerosis and hard bone, I used a saw blade to help make the broach cuts in the proximal tibia. Thus, the tibial tray, which was a size 2.5, was left in position at this point as we began to address the femur. Drill was placed down the center of the femoral canal and we expanded to 12 mm up to between the second and third markings, and this gave excellent good bony fit. We then applied the distal femoral cutting jig after applying the sleeve and we adjusted it at 2 mm resection level. And, she had a perfect but laterally; however, medially we had to go back four, thus we elected to provide an 8 mm spacer to help reestablish the joint line inferiorly. We then applied the 4-in-1 block and with the appropriate spacers medially, and we used the tibial tray to set our rotation of our femoral component by using the 12.5 spacer on the tibial tray and using that to adjust our 4-in-1 block to make sure it was in relative external rotation. It was pinned into position and we secondarily checked by eyeball against the medial and lateral epicondyles. We then performed the posterior cuts. There was no bone taken anteriorly and there were no chamfer cuts; however, posteriorly it was a perfectly flush cut medially and we did take 2 mm laterally. Thus, final construct we were going to have 4 mm posterolaterally, 4 mm laterally, no spacer posteromedially, and an 8 mm anteromedially. Thus, on the back table these spacers were applied and the box cut jig was applied to the distal femur, again checking the rotation with a 12.5 spacer against the tibial plateau and pinned into position. We used the TC3 slot to perform the notchplasty and then we removed the instruments, make sure that we had good, smooth osteotomy surface in the notch and then applied the revision femoral component trial and it fit very nicely. We then trialed with a 10 mm rotating platform posterior stabilized insert and she had excellent stability to varus/valgus stress testing both in flexion and in extension and had just about full extension as she could easily bend beyond 90 degrees. Thus, I felt this was the appropriate size component to be used. With the knee out in full extension, I then shelled out the fibrous tissue around the patella and then performed a patellar osteotomy and sized for a 32 button, lug holes were drilled and the trial was applied. She did require a full lateral release to help center our patella and to prevent lateral subluxation during flexion and extension but once we did so, we were able to get good tracking. We then removed all the trial components, Exparel was placed in the subperiosteal tissues around the distal femur and the proximal tibia, and the final implants were then put together on the back table with the assistance of Dr. Baires who also helped with appropriate soft tissue retraction, helped to manipulate the knee, helped to perform some of the bony cuts, helped to irrigate out the knee, helped with appropriate soft tissue retraction throughout the operation to allow me to perform this operating smoothly, efficiently, and safely. While he was doing that on the back table, I mixed the cement and then also prepared the bony surfaces for cementing with a copious amount of pulsatile lavage with irrigating solution as well as thoroughly drying all the bony surfaces with the assistance of Ms. Dianne Baires. Once everything had been thoroughly dried, we cemented the tibial tray just on the tibial surface without putting any cement on the stem and then impacted it appropriately. We then, in a similar fashion, placed the cement around the distal femoral surface, a bit on the posterior condyle of the femoral component as well, and then implanted the real femoral component removing all excess cement. The polyethylene was then applied and the knee brought into extension and then we cemented the patellar button, removed excess cement, and held it with a patellar clamp until the cement hardened. And, as we were waiting, we continued to copiously irrigate out the knee joint and then placed tranexamic acid into the depth of the knee and then began closing the apex of the arthrotomy with two #1 PDS sutures. The medial parapatellar area was closed with a #1 PDS suture. Patellar tracking again at this point was assessed and she did not have any tendency for lateral subluxation. Thus, I continued to close the medial arthrotomy with a double- armed, #1 running STRATAFIX. The tourniquet was released at this point and then the lateral retinacular release laterally, I closed just the synovial layer, just to help prevent seroma and hematoma from extending out subcutaneously. We then copiously irrigated again, closed the deep subdermal tissues with interrupted 2-0 PDS suture. Skin was closed with familia, covered by an Optifoam and dry, sterile bulky dressing. She was then transferred to the recovery room in stable condition. There were no intraoperative complications. MARK
--- NOTE | 2020-05-26 09:16 | REP ---
RIGHT KNEE SERIES CLINICAL: Postoperative assessment baseline. TECHNIQUE: AP and cross-table lateral views of the right knee. FINDINGS: Patient is status post right knee replacement. Satisfactory alignment to the hardware is appreciated. Overlying postsurgical changes are noted. IMPRESSION: Status post right knee replacement. MTDD
--- NOTE | 2020-05-27 11:34 | DSES ---
DATE OF ADMISSION: 04/28/2020. DATE OF DISCHARGE: 04/30/2020. ADMITTING DIAGNOSIS: Infected total knee; status post resection and implantation of antibiotic spacer December 2019. CHRONIC CONDITIONS: Hypertension, hyperlipidemia, diabetes, asthma, hypothyroidism, anxiety and depression. DISCHARGE DIAGNOSIS: Infected total knee; status post resection and implantation of antibiotic cement spacer in December of 2019 and then status post removal of the cement spacer and revision right total knee arthroplasty. HISTORY: This is a 59-year-old female patient, who initially had a right total knee done in April of 2019. She did well until December of 2019, when she was noted to have an infected total knee arthroplasty. She had undergone a resection and implantation of an antibiotic cement spacer. Her labs and her studies improved and she was admitted for revision right total knee arthroplasty as well as removal of the cement spacer. Surgery performed elective removal of the cement spacer and revision right total knee arthroplasty. HOSPITAL COURSE: Patient was admitted on the day of surgery and underwent elective removal of the cement spacer and revision right total knee arthroplasty, which as well tolerated by the patient. She was up with physical therapy per protocol and her pain was controlled. Due to the nature of her surgery and underlying medical conditions, she did not receive her discharge until 04/30/2020. On the day of discharge, her pain was controlled. She is weightbearing as tolerated on her right lower extremity. She was given instructions including, but not limited to wound monitoring, activity limitations. She will use oral pain medications for pain control. She will resume her preoperative medications and diet. She will follow-up in our office in 10 to 14 days for surgical follow-up. Please refer to the medical record for further details. MARK
--- NOTE | 2020-06-03 08:39 | HPE ---
DATE OF ADMISSION: 04/28/2020 ATTENDING PHYSICIAN: Dr. Jones CHIEF COMPLAINT: Right knee pain and stiffness. HISTORY: Patient is a pleasant 59-year-old female who had a right total knee arthroplasty in April 2019. She did very after surgery but ended up developing an infection. In December 2019, she went in for a resection and implantation of an antibiotic cemented spacer. She has been doing very well, and her infection has cleared. She consented for an elective removal of the cement spacer and revision of her knee arthroplasty. CURRENT MEDICATIONS: - ProAir inhaler - lisinopril 2.5 mg daily - metformin 500 mg daily - atenolol 25 mg daily - hydrochlorothiazide 12.5 mg daily - levothyroxine 100 mcg daily - Paxil 40 mg daily - Zocor 20 mg daily ALLERGIES: There are no known drug allergies. CHRONIC MEDICAL CONDITIONS: 1. Hypertension. 2. Hyperlipidemia. 3. Diabetes. 4. Asthma. 5. Hypothyroid. 6. Anxiety. 7. Depression. PAST SURGICAL HISTORY: Right total knee arthroplasty followed by resection and implantation of antibiotic cemented spacer. SOCIAL HISTORY: Patient denies tobacco or alcohol use. REVIEW OF SYSTEMS: Patient denies fevers, chills, nausea, vomiting, or diarrhea. She denies chest pain, shortness of breath, lightheadedness, dizziness, or headaches. She denies any abdominal pain. She denies any recent upper respiratory or urinary tract infection symptoms. Patient states that her right knee does cause some intermittent achiness but overall doing well there. States she gets a little stiff. PHYSICAL EXAMINATION: GENERAL: Well-nourished, well-developed female in no apparent distress. She is alert, oriented, and cooperative. Her mood and affect are appropriate. Blood pressure 120/70, respirations 16, heart rate 72, temperature 97.1, height 62 inches, weight 176.2 pounds. NECK: Supple without lymphadenopathy. HEART: Regular rate and rhythm. LUNGS: Clear to auscultation bilaterally. ABDOMEN: Soft, nontender to palpation. Bowel sounds are present. MUSCULOSKELETAL: Right knee does show a well-healed surgical incision anteriorly. There was some fullness about the knee but no real tenderness to palpation. No warmth. Patient can extend the knee to about 15 degrees and flex to 95 degrees. Strength in the right lower extremity is 5/5. Patient's calf is soft and nontender to palpation. No evidence of deep venous thrombosis (DVT). She is neurovascularly intact distally. IMPRESSION: Right knee pain and stiffness, status post right total knee arthroplasty with subsequent infection, removal of hardware, and insertion of a cement spacer. PLAN: Patient has consented for an elective removal of the cement spacer with revision arthroplasty with Dr. Jones. Medical optimization pending with her primary home health care provider, Jarod Baires, who was not available for review at today's visit. Patient will start using her Hibiclens and Bactroban as directed 5 days prior to surgery. She will call [facility] on Tuesday afternoon to get a report time for Tuesday. Patient will follow her primary home health care provider's recommendations for taking daily medications and any anticoagulants if applicable. MARK
== END 2020-04-30 14:55 | disposition home health service (06) | DRG 468 ==
LOC: M OR 06:28 → M MS5PR 13:10
PROVIDERS: ADMIT Orthopaedic Surgery; ATTEND Orthopaedic Surgery
PROC: 0SPC0JZ Removal of Synthetic Substitute from Right Knee Joint, Open Approach (ICD-10-PCS; 2020-04-28)
PROC: 0SRC0J9 Replacement of Right Knee Joint with Synthetic Substitute, Cemented, Open Approach (ICD-10-PCS; principal; 2020-04-28 07:30)
DX: T84.51XA Infection and inflammatory reaction due to internal right hip prosthesis, initial encounter (principal); I10 Essential (primary) hypertension; E78.5 Hyperlipidemia, unspecified; J45.909 Unspecified asthma, uncomplicated; F41.9 Anxiety disorder, unspecified; F32.9 Major depressive disorder, single episode, unspecified; E03.9 Hypothyroidism, unspecified; E53.8 Deficiency of other specified B group vitamins; D64.9 Anemia, unspecified; M19.90 Unspecified osteoarthritis, unspecified site; E11.9 Type 2 diabetes mellitus without complications; Z79.82 Long term (current) use of aspirin; Z79.899 Other long term (current) drug therapy; Y83.1 Surgical operation with implant of artificial internal device as the cause of abnormal reaction of the patient, or of later complication, without mention of misadventure at the time of the procedure

== ENCOUNTER → 2020-06-17 | Outpatient (CLI) | payer MEDICARE ==
[~2020-06-17] MED LIST changes: +ECOT81TA5 PO; +FISH10002 PO; -fentaNYL 100 MCG/2 ML INJECTION (J3010) IV SCH
[2020-06-17 16:00] LABS: BASO # 0.1 10^3/uL (0.0-0.2); BASO % 0.4 % (0.0-1.0); EOS # 0.1 10^3/uL (0.0-0.5); EOS % 0.6 % (0.0-3.0); HEMATOCRIT 31.3 % (36.0-47.0); HEMOGLOBIN 9.6 g/dl (12.0-15.5); LYMPH # 1.8 10^3/uL (1.5-5.0); LYMPH % 10.8 % (24.0-44.0); MEAN CORPUSCULAR HEMOGLOBIN 26.5 pg (27.0-33.0); MEAN CORPUSCULAR HGB CONC 30.7 g/dl (32.0-36.5); MEAN CORPUSCULAR VOLUME 86.5 fl (80.0-96.0); MONO # 1.6 10^3/uL (0.0-0.8); NEUTROPHILS # 12.8 10^3/uL (1.5-8.5); NEUTROPHILS % 77.6 % (36.0-66.0); PLATELET COUNT, AUTOMATED 259 10^3/uL (150-450); RED BLOOD COUNT 3.62 10^6/uL (4.00-5.40); WHITE BLOOD COUNT 16.5 10^3/uL (4.0-10.0)
[2020-06-17 16:36] LABS: ERYTHROCYTE SEDIMENTATION RATE 101 mm/hr (0-30)
== END ==
LOC: M PLALAB 13:02
PROVIDERS: ATTEND Orthopaedic Surgery
DX: Z47.1 Aftercare following joint replacement surgery (principal); Z79.899 Other long term (current) drug therapy

== ENCOUNTER 2020-06-20 11:42 | Inpatient (IN) | payer MEDICARE ==
[~2020-06-20] VITALS: Ht 162.6 cm; Wt 83.3 kg
[~2020-06-20 11:42] MED LIST changes: -FISH10002 PO
[2020-06-20] MEDS ORDERED: cefTRIAXone SOD 2 GM in D5W MINI-BAG PLUS 50 ML IV ONE (12:30)
[2020-06-20] MEDS ORDERED: VANCOMYCIN HCL 1,000 MG, VIAL MATE ADAPTER 1 EACH in D5W 250 ML IV ONE (12:30)
[2020-06-20 12:38] LABS: BASO # 0.1 10^3/uL (0.0-0.2); BASO % 0.7 % (0.0-1.0); EOS # 0.4 10^3/uL (0.0-0.5); EOS % 3.8 % (0.0-3.0); HEMATOCRIT 28.4 % (36.0-47.0); LYMPH # 1.3 10^3/uL (1.5-5.0); LYMPH % 12.5 % (24.0-44.0); MEAN CORPUSCULAR HEMOGLOBIN 26.9 pg (27.0-33.0); MEAN CORPUSCULAR HGB CONC 31.7 g/dl (32.0-36.5); MONO # 1.2 10^3/uL (0.0-0.8); MONO % 10.8 % (0.0-5.0); NEUTROPHILS # 7.6 10^3/uL (1.5-8.5); NEUTROPHILS % 71.4 % (36.0-66.0); PLATELET COUNT, AUTOMATED 341 10^3/uL (150-450); RED BLOOD COUNT 3.34 10^6/uL (4.00-5.40); WHITE BLOOD COUNT 10.7 10^3/uL (4.0-10.0)
[2020-06-20 13:00] LABS: ERYTHROCYTE SEDIMENTATION RATE 106 mm/hr (0-30)
[2020-06-20] MEDS ORDERED: FISH10002 PO (13:06)
[2020-06-20 13:55] VITALS: BP 95/50
--- NOTE | 2020-06-20 16:18 | HPEPDOC ---
[facility], [place] Medical History & Physical Date of Admission Jun 20, 2020 Date of Service: Jun 20, 2020 History and Physical CHIEF COMPLAINT: Right knee pain and swelling HISTORY OF PRESENT ILLNESS: 59-year-old female past medical history of HTN, OA, asthma, MDD, DM, hypothyroidism, HLD, who had elective right total knee arthroplasty and revision on 04/28/20. Patient bumped her right knee at home and subsequently developed a hematoma over her right knee followed by redness over the right dorsal aspect of her leg but no discharge. Patient states her right knee is very painful at the moment. She was evaluated by orthopedics in the emergency department who plans to take her to the OR for I&D today. Medicine team was consulted for medical management PAST MEDICAL HISTORY: 1. Osteoarthritis 2. Hypertension 3. Asthma 4. Dyslipidemia 5. Anxiety 6. depression 7. Diabetes mellitus 8. Hypothyroidism 9. Anemia 10. Vitamin B12 deficiency PAST SURGICAL HISTORY: 1. Right total knee arthroplasty and revision 04/28/20 2. Plate and pin implant in the left foot. 2. Right rotator cuff surgery. 3. Bilateral carpal tunnel release. 4. Right total knee replacement 04/2019 5. Right total knee resection and plantation of abx cemented spacer 12/2019 SOCIAL HISTORY: Drinks alcohol socially Denies tobacco use Denies illicit drug use Lives by herself in [place] in an apartment and uses a walker or cane as needed. Primary care doctor's Jarod Baires FAMILY HISTORY: Mother has a history of ESRD, CAD Brother history of colon cancer ALLERGIES: Please see below. REVIEW OF SYSTEMS: Constitutional: No sweating or weight loss Eyes: No eye pain or acute blurred vision HENT: No complaints of headache or sore throat Cadiovascular: No Chest pain or palpitations Pulm: No SOB or cough Gastrointestinal: No N/V, no abdominal pain. Genitourinary: No dysuria or hematuria Musculoskeletal: Per HPI Skin: Per HPI Neurological: No weakness. HOME MEDICATIONS: Please see below. PHYSICAL EXAMINATION: Constitutional: Awake and alert, in no apparent distress. ENT: Sclera are clear. Mucosa is moist. Respiratory: Lungs CTA bilaterally. No respiratory distress. No use of accessory muscles. Cardiovascular: RRR S1 and S2 are normal, no murmur Gastrointestinal: Abdomen is soft, obese, non distended, non tender, BS present. Musculoskeletal: Right lower extremity is edematous negative Homans sign. Neurologic: No focal neurological deficit. Mental Status: A&O x3, normal affect Skin: Skin from the right foot up to the knee is erythematous but has no purulent discharge. Skin is tender to palpation. LABORATORY DATA: See below. IMAGING: Right knee x-ray 06/20/2020 impressions: Patient is status post right knee replacement. Satisfactory alignment to the hardware is appreciated. Overlying postsurgical changes are noted. MICROBIOLOGY: Please see below. ASSESSMENT/PLAN 59-year-old female past medical history of HTN, OA, asthma, MDD, DM, hypothyroidism, HLD, who had elective right total knee arthroplasty and revision on 04/28/20. Admitted by orthopedics for I&D after developing a hematoma secondary to trauma over her right knee. Patient also developed none purulent cellulitis on her right leg. Medicine team was consulted for medical management. # Right knee hematoma: I&D per ortho # Right leg cellulitis: Elevate leg. IV vancomycin and ceftriaxone. Blood cultures. Wound cultures. # Right lower extremity swelling: Likely from cellulitis but will obtain Duplex ultrasound. # Hypertension: Patient currently normotensive. Hold home meds for now. Monitor and titrate # Diabetes: Hold metformin while inpatient. ISS. Frequent Accu-Cheks. Hypoglycemic precautions. Diabetic diet # Hypothyroidism: Continue levothyroxine at home dose. # Asthma: Beautiful when necessary # Hyperlipidemia: Continue statin # Anxiety and depression: Continue home meds # DVT prophylaxis per ortho A Yousef Hospitalist Vital Signs Vital Signs Date Time Temp Pulse Resp B/P (MAP) Pulse Ox O2 Delivery O2 Flow Rate FiO2 06/20/20 13:55 98.3 78 18 95/50 (65) 98 Room Air Laboratory Data Labs 24H Laboratory Tests 2 06/20/20 12:25: Immature Granulocyte % (Auto) 0.8, Neutrophils (%) (Auto) 71.4H, Lymphocytes (%) (Auto) 12.5L, Monocytes (%) (Auto) 10.8H, Eosinophils (%) (Auto) 3.8H, Basophils (%) (Auto) 0.7, Neutrophils # (Auto) 7.6, Lymphocytes # (Auto) 1.3L, Monocytes # (Auto) 1.2H, Eosinophils # (Auto) 0.4, Basophils # (Auto) 0.1, Nucleated Red Blood Cells % (auto) 0.0, Erythrocyte Sedimentation Rate 106H, Lactic Acid Level 1.0, C-Reactive Protein, Quantitative 10.60H, Coronavirus (COVID-19)(PCR) NEGATIVE 06/20/20 12:31: POC Glucose (Misc Panel) 94, POC Sodium (Misc Panel) 137, POC Potassium (Misc Panel) 3.6, POC Chloride (Misc Panel) 97L, POC Total CO2 (Misc Panel) 25.0, POC Blood Urea Nitrogen (Misc Panel 19, POC Ionized Calcium (Misc Panel) 4.7, POC Creatinine (Misc Panel) 0.9, POC Hematocrit (Misc Panel) 28.0L CBC/BMP Laboratory Tests 06/20/20 12:25 Microbiology Microbiology 06/20/20 Blood Culture, Received Pending Home Medications Scheduled Atenolol (Atenolol) 25 Mg Tab, 25 MG PO DAILY Cholecalciferol (Vitamin D3) (Vitamin D3) 1,000 Unit Tablet, 1,000 UNITS PO D AILY Cyanocobalamin (Vitamin B-12) (Vitamin B-12) 500 Mcg Tab, 500 MCG PO DAILY Hydrochlorothiazide (Hydrochlorothiazide) 12.5 Mg Cap, 12.5 MG PO DAILY Levothyroxine Sodium (Levothyroxine Sodium) 100 Mcg Tab, 100 MCG PO QAM Lisinopril (Lisinopril) 2.5 Mg Tab, 2.5 MG PO DAILY Metformin HCl (Metformin HCl) 500 Mg Tab, 500 MG PO DAILY [place]-3/Dha/Epa/Fish Oil (Fish Oil 1,000 mg Softgel) 1 Each Capsule, 1 CAP PO DAILY Paroxetine HCl (Paroxetine HCl) 40 Mg Tab, 40 MG PO DAILY Simvastatin (Simvastatin) 20 Mg Tab, 20 MG PO DAILY Allergies Coded Allergies: No Known Allergies (Unverified , 04/25/20) A-FIB/CHADSVASC A-FIB History Current/History of A-Fib/PAF?: No SOHEILA QUIGLEY MD Jun 20, 2020 16:17
[2020-06-20] MEDS ORDERED: GLUCAGON INJ 1MG VIAL SC PRN (16:45)
[2020-06-20] MEDS ORDERED: VANICREAM MOISTURIZING SKIN CREAM 113GM TUBE TOP PRN (16:45)
[2020-06-20] MEDS ORDERED: DEXTROSE 50% 50 ML SYRINGE IV PRN (16:45)
[2020-06-20] MEDS ORDERED: GLUCOSE 4GM CHEW TABLET PO PRN (16:45)
[2020-06-20] MEDS ORDERED: fentaNYL 100 MCG/2 ML INJECTION (J3010) As Ordered ONE (17:12)
[2020-06-20] MEDS ORDERED: MIDAZOLAM INJ 2MG/2ML VIAL (J2250 PER 1MG) As Ordered ONE (17:12)
[2020-06-20] MEDS ORDERED: propofoL 200 MG/20 ML VIAL As Ordered ONE (17:15)
[2020-06-20] MEDS ORDERED: LIDOCAINE 2% 100MG/5ML SDV (FOR ANES.) As Ordered ONE (17:15)
[2020-06-20] MEDS: HumaLOG INSULIN (NovoLOG) PER UNIT SC SCH ×2 (17:30→20:27)
[2020-06-20] MEDS ORDERED: ceFAZolin 1GM VIAL (J0690 PER 500MG) As Ordered ONE (17:44)
[2020-06-20] MEDS ORDERED: fentaNYL 100 MCG/2 ML INJECTION (J3010) IV PRN (19:00)
[2020-06-20] MEDS ORDERED: ONDANSETRON 4MG/2ML VIAL IV PRN (19:00)
[2020-06-20] MEDS ORDERED: LR 1,000 ML IV SCH (19:00)
[2020-06-20] MEDS ORDERED: oxyCODONE 5MG TAB PO PRN (19:00)
[2020-06-20] MEDS ORDERED: HYDROMORPHONE HCL 0.5 MG/ 0.5 ML SYRINGE (J1170 PER 1) IV PRN (19:15)
[2020-06-20] MEDS ORDERED: MORPHINE 2 MG/ML 1ML VIAL (J2270) IV PRN (19:30)
[2020-06-20] MEDS ORDERED: PERCOCET 5MG/325MG TAB PO PRN (19:30)
[2020-06-20 19:45] VITALS: BP 96/53
[2020-06-20 20:00] VITALS: BP 99/53
[2020-06-20] MEDS: NS 1,000 ML IV SCH (20:26)
[2020-06-20] MEDS: VANCOMYCIN HCL 1,000 MG, VIAL MATE ADAPTER 1 EACH in D5W 250 ML IV SCH (20:26)
[2020-06-20 20:30] VITALS: BP 96/54
--- NOTE | 2020-06-20 20:35 | ECGEPIP ---
[facility] - ED Test Date: 2020-06-20 Pat Name: VALENTINE CHIRINOS Department: Room: [place] [id number] Gender: Female [employer] Work[employer]: LOLY : 1960 Requested By: DAMARIS SARGENT PA-C Order Number: [id number] Reading MD: Talia Adrian Measurements Intervals [place] Rate: 74 P: 45 [place]: 155 QRS: 35 QRSD: 88 T: 14 QT: 395 QTc: 441 Interpretive Statements SINUS RHYTHM NSTTW abnormalities DECREASED RATE 01/17/20 Electronically Signed on 06-20-2020 20:35:25 EDT by Talia Adrian
--- NOTE | 2020-06-20 21:41 | REP ---
INDICATION: right leg swelling COMPARISON: None. TECHNIQUE: Zamudio scale and color Doppler evaluation using linear high frequency transducer. FINDINGS: Evaluation is limited due to recent surgery and bandage material overlying the popliteal region. There is no evidence for deep venous thrombosis involving the common femoral vein and superficial femoral vein. IMPRESSION: No evidence for deep venous thrombosis involving the common femoral vein and superficial femoral vein. Popliteal vein and popliteal fossa could not be evaluated due to overlying bandages. <Electronically signed by Ancelmo Ann > 06/20/20 1232
[2020-06-20 22:02] VITALS: BP 104/56
[2020-06-21] MEDS: PERCOCET 5MG/325MG TAB PO PRN (00:09)
[2020-06-21 02:16] VITALS: BP 101/54
[2020-06-21] MEDS: NS 1,000 ML IV SCH (05:08)
[2020-06-21 05:27] VITALS: BP 99/59
[2020-06-21] MEDS: LEVOTHYROXINE 100MCG TABLET (0.1MG) PO SCH (05:51)
[2020-06-21] MEDS: VANCOMYCIN HCL 1,000 MG, VIAL MATE ADAPTER 1 EACH in D5W 250 ML IV SCH ×2 (05:51→17:42)
[2020-06-21 06:46] LABS: HEMATOCRIT 25.8 % (36.0-47.0); MEAN CORPUSCULAR HEMOGLOBIN 26.4 pg (27.0-33.0); MEAN CORPUSCULAR VOLUME 85.1 fl (80.0-96.0); PLATELET COUNT, AUTOMATED 297 10^3/uL (150-450); RED BLOOD COUNT 3.03 10^6/uL (4.00-5.40); WHITE BLOOD COUNT 5.8 10^3/uL (4.0-10.0)
[2020-06-21 07:00] LABS: BLOOD UREA NITROGEN 13 MG/DL (7-18); C REACTIVE PROTEIN QUANTITATIV 7.18 MG/DL (0.00-0.30); CALCIUM LEVEL 8.2 MG/DL (8.5-10.1); CARBON DIOXIDE LEVEL 25 MEQ/L (21-32); CHLORIDE LEVEL 106 MEQ/L (98-107); GLOMERULAR FILTRATION RATE > 60.0 (>51); GLUCOSE, FASTING 89 MG/DL (70-100); POTASSIUM SERUM 3.4 MEQ/L (3.5-5.1); SODIUM LEVEL 138 MEQ/L (136-145)
[2020-06-21 07:12] LABS: ERYTHROCYTE SEDIMENTATION RATE 106 mm/hr (0-30)
[2020-06-21] MEDS: HumaLOG INSULIN (NovoLOG) PER UNIT SC SCH ×4 (07:30→21:00)
[2020-06-21] MEDS: atenoloL 25 MG TAB PO SCH (09:00)
[2020-06-21] MEDS: MOM 30ML SUSPENSION UDC PO SCH ×2 (09:00→10:04)
[2020-06-21] MEDS: MIRALAX *UNIT DOSE* 17GM PACKET PO SCH (09:00)
[2020-06-21] MEDS: LISINOPRIL *2.5 MG* TAB PO SCH (10:05)
[2020-06-21] MEDS: CYANOCOBALAMIN 500 MCG TAB PO SCH (10:05)
[2020-06-21] MEDS: PARoxetine 20 MG TAB PO SCH (10:05)
[2020-06-21] MEDS: SIMVASTATIN 20 MG TAB PO SCH (10:06)
[2020-06-21] MEDS: VITAMIN D 1,000 INTERNATIONAL UNITS TABLET PO SCH (10:08)
[2020-06-21] MEDS: cefTRIAXone SOD 2 GM in D5W MINI-BAG PLUS 50 ML IV SCH (13:39)
[2020-06-21 14:00] VITALS: BP 117/67
[2020-06-21] MEDS ORDERED: POTASSIUM CHLORIDE 10% LIQ 20 MEQ/15 ML UDC PO ONE (15:00)
--- NOTE | 2020-06-21 16:33 | IPNPDOC ---
Text Note Date of Service The patient was seen on 06/21/20. NOTE Subjective: Vision was seen and examined this afternoon. She has residual much better and her right leg pain has substantially improved after the I&D yesterday. was here this morning and change her dressing. Has no complaints at this time and denies any fevers or chills. Nurse reports no overnight events. Objective: Constitutional: Awake and alert, in no apparent distress. ENT: Sclera are clear. Mucosa is moist. Respiratory: Lungs CTA bilaterally. No respiratory distress. No use of accessory muscles. Cardiovascular: RRR S1 and S2 are normal, no murmur Gastrointestinal: Abdomen is soft, obese, non distended, non tender, BS present. Musculoskeletal: Right lower extremity is edematous negative Homans sign. Neurologic: No focal neurological deficit. Mental Status: A&O x3, normal affect Skin: Right lower extremity is bandaged with fresh lean dressing with no apparent leakage or discharge. The surrounding erythema is substantially improved from yesterday. The skin is no longer exquisitely tender to palpation. Patient has been moving around the room and weightbearing with no issues. Assessment/plan: 59-year-old female past medical history of HTN, OA, asthma, MDD, DM, hypothyroidism, HLD, who had elective right total knee arthroplasty and revision on 04/28/20. Admitted by orthopedics for I&D after developing a hematoma secondary to trauma over her right knee. Patient also developed none purulent cellulitis on her right leg. Medicine team was consulted for medical management. # Right knee hematoma: s/p I&D by ortho. # Right leg cellulitis: Elevate leg. IV vancomycin and ceftriaxone. Blood cultures. Wound cultures grew strep group G. leukocytosis resolved. CRP downtrending. # Right lower extremity swelling: Substantially improved after I&D. Likely 2/2 cellulitis. Duplex ultrasound negative for DVT. # Hypertension: Patient currently normotensive. Hold home meds for now. Monitor and titrate # Diabetes: Hold metformin while inpatient. ISS. Frequent Accu-Cheks. Hypoglycemic precautions. Diabetic diet # Hypothyroidism: Continue levothyroxine at home dose. # Asthma: duonebs when necessary # Hyperlipidemia: Continue statin # Anxiety and depression: Continue home meds # DVT prophylaxis per ortho A Yousef Hospitalist VS,Edie, I+O VS, Edie, I+O Laboratory Tests 06/21/20 06:22 Vital Signs Date Time Temp Pulse Resp B/P (MAP) Pulse Ox O2 Delivery O2 Flow Rate FiO2 06/21/20 14:00 96.9 89 18 117/67 (84) 96 Room Air I&O- Last 24 Hours up to 6 AM 06/21/20 06:00 Intake Total 1580 ml Output Total 0 ml Balance 1580 ml SOHEILA QUIGLEY MD Jun 21, 2020 16:33
[2020-06-21 19:45] VITALS: BP 114/67
[2020-06-22] MEDS: VANCOMYCIN HCL 1,000 MG, VIAL MATE ADAPTER 1 EACH in D5W 250 ML IV SCH (05:30)
[2020-06-22] MEDS: LEVOTHYROXINE 100MCG TABLET (0.1MG) PO SCH (05:30)
[2020-06-22 05:40] VITALS: BP 95/52
[2020-06-22 05:48] LABS: HEMATOCRIT 26.1 % (36.0-47.0); HEMOGLOBIN 8.2 g/dl (12.0-15.5); MEAN CORPUSCULAR HEMOGLOBIN 26.8 pg (27.0-33.0); MEAN CORPUSCULAR HGB CONC 31.4 g/dl (32.0-36.5); MEAN CORPUSCULAR VOLUME 85.3 fl (80.0-96.0); PLATELET COUNT, AUTOMATED 326 10^3/uL (150-450); RED BLOOD COUNT 3.06 10^6/uL (4.00-5.40); WHITE BLOOD COUNT 5.5 10^3/uL (4.0-10.0)
[2020-06-22 06:20] LABS: BLOOD UREA NITROGEN 10 MG/DL (7-18); C REACTIVE PROTEIN QUANTITATIV 5.29 MG/DL (0.00-0.30); CALCIUM LEVEL 8.5 MG/DL (8.5-10.1); CARBON DIOXIDE LEVEL 28 MEQ/L (21-32); CHLORIDE LEVEL 109 MEQ/L (98-107); CREATININE FOR GFR 0.76 MG/DL (0.55-1.30); GLOMERULAR FILTRATION RATE > 60.0 (>51); GLUCOSE, FASTING 83 MG/DL (70-100); POTASSIUM SERUM 4.2 MEQ/L (3.5-5.1); SODIUM LEVEL 142 MEQ/L (136-145)
[2020-06-22 06:23] LABS: ERYTHROCYTE SEDIMENTATION RATE 108 mm/hr (0-30)
[2020-06-22] MEDS: HumaLOG INSULIN (NovoLOG) PER UNIT SC SCH ×4 (07:30→21:00)
[2020-06-22] MEDS: MOM 30ML SUSPENSION UDC PO SCH (09:00)
[2020-06-22] MEDS: MIRALAX *UNIT DOSE* 17GM PACKET PO SCH (09:00)
[2020-06-22] MEDS: SIMVASTATIN 20 MG TAB PO SCH (09:17)
[2020-06-22] MEDS: CYANOCOBALAMIN 500 MCG TAB PO SCH (09:17)
[2020-06-22] MEDS: atenoloL 25 MG TAB PO SCH (09:17)
[2020-06-22] MEDS: VITAMIN D 1,000 INTERNATIONAL UNITS TABLET PO SCH (09:17)
[2020-06-22] MEDS: PARoxetine 20 MG TAB PO SCH (09:17)
[2020-06-22] MEDS: LISINOPRIL *2.5 MG* TAB PO SCH (09:18)
[2020-06-22] MEDS: cefTRIAXone SOD 2 GM in D5W MINI-BAG PLUS 50 ML IV SCH (13:32)
[2020-06-22 14:06] VITALS: BP 108/67
[2020-06-22] MEDS ORDERED: VANCOMYCIN HCL 750 MG, VIAL MATE ADAPTER 1 EACH in D5W 250 ML IV SCH (21:00)
[2020-06-22 22:00] VITALS: BP 106/65
[2020-06-23] MEDS: PERCOCET 5MG/325MG TAB PO PRN ×2 (00:38→08:57)
[2020-06-23 06:00] VITALS: BP 106/63
[2020-06-23] MEDS: LEVOTHYROXINE 100MCG TABLET (0.1MG) PO SCH (06:14)
[2020-06-23 06:59] LABS: HEMATOCRIT 27.2 % (36.0-47.0); HEMOGLOBIN 8.2 g/dl (12.0-15.5); MEAN CORPUSCULAR HEMOGLOBIN 26.1 pg (27.0-33.0); MEAN CORPUSCULAR HGB CONC 30.1 g/dl (32.0-36.5); MEAN CORPUSCULAR VOLUME 86.6 fl (80.0-96.0); PLATELET COUNT, AUTOMATED 341 10^3/uL (150-450); RED BLOOD COUNT 3.14 10^6/uL (4.00-5.40); WHITE BLOOD COUNT 5.1 10^3/uL (4.0-10.0)
--- NOTE | 2020-06-23 07:14 | HPE ---
DATE OF ADMISSION: 06/20/2020 REASON FOR ADMISSION: Right leg abscess near a revision total knee replacement surgical site. HISTORY OF PRESENT ILLNESS: 59-year-old female who underwent a revision of a right total knee replacement for infection on 04/28/2020. She is doing fine from the surgery; actually has minimal pain, but developed some psoriatic rash and then bruised the anterior the aspect of her right leg several days ago and presented as a routine follow up into the office with a tender, warm, reddish area from the knee distal. She is afebrile. Laboratory studies however showed elevated CRP at 17, sedimentation rate 101 and elevated white count. I sent her to see Dr. Choi, who thought possibly this was related to her psoriasis, but also started her on oral Keflex and she comes back in follow up to review the labs and re-evaluate her knee. She remains feeling that her knee does not bother her at all, but she has soreness and pain and redness below the knee down near the region of the tibial tubercle. She has not been having any fevers or chills and she says her knee feels great. In the office, however, there is serous fluid eminating from the swollen area below her knee. I aspirated pus in the region where there appears to be a small abscess below the tibial tubercle. Because of that, I felt that it was advisable to admit her for irrigation, debridement and exploration and IV antibiotics; and if it looks like this abscess communicates with the joint, we may want to consider an open arthrotomy, synovectomy and polyethylene exchange. PAST MEDICAL HISTORY: Significant for asthma, high blood pressure, non-Insulin dependent diabetes, hypertension, hypothyroidism, depression and hypercholesterolemia. MEDICATIONS: Include ProAir inhaler, lisinopril 2.5 mg daily, metformin 500 mg daily, atenolol 25 mg daily, hydrochlorothiazide 12.5 mg daily, levothyroxine 100 mcg daily, Paxil 40 mg daily, simvastatin 20 mg daily. ALLERGIES: No known drug allergies. REVIEW OF SYSTEMS: Again, she denies any fevers or chills, lightheadedness, just the soreness where she bruise the anterior aspect of her leg with a psoriatic rash. No recent urinary tract infections or cough. PHYSICAL EXAMINATION: She is ambulating normally without limp. She had temperature in the office 98.5. The lungs were clear. Heart was regular. Her right lower extremity showed a psoriatic rash from her knee down with a warm, small fluctuant area near the tibial tubercle with some serous fluid draining from this area. Distally, she is neurovascularly intact. Radiographs done recently AP and lateral and skyline views of the right knee demonstrates a total knee arthroplasty revision prosthesis with good position. Her recent laboratory studies complete blood count (CBC), sedimentation rate and CRP as described above; showed a sed rate of 101, CRP of 17.10, white count of 16.5 and hematocrit 31.3 and platelets of 259. ASSESSMENT: I discussed this with Dr. Choi in detail. PLAN: Our plan is to admit her for irrigation and debridement of the abscess, and possible arthrotomy, synovectomy and polyethylene exchange, and IV antibiotics. I have also discussed with the hospitalist who will be helping with medical consultation for preoperative clearance and we have notified the operating room MTDD
[2020-06-23 07:16] LABS: BLOOD UREA NITROGEN 9 MG/DL (7-18); C REACTIVE PROTEIN QUANTITATIV 2.44 MG/DL (0.00-0.30); CALCIUM LEVEL 8.4 MG/DL (8.5-10.1); CARBON DIOXIDE LEVEL 28 MEQ/L (21-32); CHLORIDE LEVEL 108 MEQ/L (98-107); CREATININE FOR GFR 0.84 MG/DL (0.55-1.30); GLOMERULAR FILTRATION RATE > 60.0 (>51); GLUCOSE, FASTING 79 MG/DL (70-100); SODIUM LEVEL 142 MEQ/L (136-145)
[2020-06-23 07:19] LABS: ERYTHROCYTE SEDIMENTATION RATE 107 mm/hr (0-30)
[2020-06-23] MEDS: HumaLOG INSULIN (NovoLOG) PER UNIT SC SCH ×4 (07:30→21:00)
[2020-06-23 07:45] VITALS: BP 105/65
--- NOTE | 2020-06-23 08:33 | RO ---
DATE OF OPERATION: 06/20/2020 PREOPERATIVE DIAGNOSIS: Right hallux valgus with osteoarthritis. POSTOPERATIVE DIAGNOSIS: Right hallux valgus with osteoarthritis. PROCEDURES: * Right first metatarsophalangeal joint arthrodesis. * Right calcaneal bone graft. * Use of the mini C-arm. SURGEON: Isamar Johnson MD. SHAKER SCREEN OPERATOR: JOSIAH Breewr. ANESTHESIA: Laryngeal mask airway (LMA). ESTIMATED BLOOD LOSS: 25 mL. COMPLICATIONS: None. CONDITION: Stable to recovery. INDICATIONS: The patient is a 77-year-old female with longstanding pain and deformity due to a significant hallux valgus deformity that has gone on to first metatarsophalangeal (MTP) osteoarthritis. She has failed conservative measures. The risks and benefits of surgery were discussed with the patient and informed consent was obtained. These include, but are not limited to infection, damage to nerve and blood vessels, continued pain and stiffness, and need for additional procedures. DESCRIPTION OF PROCEDURE: The patient was met in the preoperative area where her right lower extremity was marked as the correct operative side. She was taken to the operating room where she was placed in the supine position on the operating room table. She was given antibiotics within 15 minutes prior to incision. The right lower extremity was prepped and draped in the normal sterile fashion. A well-padded tourniquet had been placed on the right upper thigh. An office time- out was held where the correct patient, operative side, and operative procedure were verified. The leg was exsanguinated and tourniquet was inflated to 250 mmHg. Incision was made directly over the first MTP joint. The extensor hallucis longus (EHL) tendon was retracted. Capsule was incised. There was significant arthritis on both sides of the first MTP joint. Karly remaining cartilage was debrided with a rongeur and curettes. There was a large medial eminence that was prominent and this was excised using a 38 saw. The bone was fairly soft. I did drill both sides of the joint with a 0.062 K-wire. Next, attention was turned to the lateral heel. Incision was made just below the peroneal tendons. I used. By using a forward drill sleeve I obtained three plugs of bone graft. This wound was irrigated and closed with 3-0 Vicryl and 3-0 nylon. Next, bone graft was placed in the first MTP joint. It was then reduced to proper position and pinned in place with a 0.062 K-wire. X-rays in AP, lateral, and oblique views showed satisfactory position. A foot plate was used to further verify. Then, a 3.0 mm partially threaded lag screw, which was cannulated, was placed across the first MTP joint. This was all Arthrex hardware. I then used an Arthrex plate. It was secured distally with locking screws. I then gained extra compression through the plate using the oblong hole. Finally, two more locking screws were inserted. X-rays were performed in AP, lateral, and oblique view. There was satisfactory compression across the joint and hardware placement. Copious irrigation was performed. I then put the remaining bone graft across the joint after using the celina to drill two celina holes. DBX Putty was added to this area. The capsule was closed using 2-0 Vicryl. Skin was closed using 3-0 Vicryl and 3-0 nylon. The patient was extubated and transferred to the recovery room in stable condition. PLAN: The patient will be nonweightbearing on the right lower extremity. She will be on Lovenox for deep vein thrombosis (DVT) prophylaxis. She will be admitted to the hospital overnight per her request. I will see her back in two weeks for suture removal and advancement into a boot. MARK
[2020-06-23] MEDS: SIMVASTATIN 20 MG TAB PO SCH (08:56)
[2020-06-23] MEDS: PARoxetine 20 MG TAB PO SCH (08:56)
[2020-06-23] MEDS: CYANOCOBALAMIN 500 MCG TAB PO SCH (08:57)
[2020-06-23] MEDS: VITAMIN D 1,000 INTERNATIONAL UNITS TABLET PO SCH (08:57)
[2020-06-23] MEDS: MIRALAX *UNIT DOSE* 17GM PACKET PO SCH (09:00)
[2020-06-23] MEDS: LISINOPRIL *2.5 MG* TAB PO SCH (09:00)
[2020-06-23] MEDS: atenoloL 25 MG TAB PO SCH (09:00)
[2020-06-23] MEDS: MOM 30ML SUSPENSION UDC PO SCH (09:00)
[2020-06-23] MEDS: cefTRIAXone SOD 2 GM in D5W MINI-BAG PLUS 50 ML IV SCH (12:59)
[2020-06-23 14:01] VITALS: BP 93/80
[2020-06-23] MEDS ORDERED: LIDOCAINE 1% MDV 20ML VIAL As Ordered ONE (15:56)
[2020-06-23] MEDS ORDERED: MOM 30ML SUSPENSION UDC PO PRN (16:45)
--- NOTE | 2020-06-23 17:21 | REP ---
PROCEDURE NAME: PICC LINE INSERTION W/SITERITE SEDATION: None CLINICAL INFORMATION: IV ABX PHYSICIAN: Birgit Pemberton PROCEDURE DESCRIPTION: The procedure was performed by JACY Newman, under the direct supervision of Dr. Zamudio. The risks and benefits of the procedure were explained to the patient and an informed consent was obtained both verbally and written. Directly prior to the start of the procedure a formal time-out was completed in the procedure room. The right basilic vein was localized using ultrasound guidance. The skin was prepped and draped in sterile fashion. One mL of 1% lidocaine 10 mg/mL was used as a local anesthetic. Using ultrasound guidance the right basilic vein was cannulated, and a 0.018 guidewire was inserted and advanced to the level of SVC using fluoroscopic guidance. The needle was removed and a 4.5 Greek dilator and peel-away sheath was inserted over the guidewire. A 4.5 Greek single lumen catheter was cut to a length of 35 cm. The dilator was removed and the catheter was inserted over the guidewire with the tip ending at the level of the SVC. The peel-away sheath was removed and the catheter was flushed with heparinized saline as per hospital protocol. The catheter was affixed to the skin and a sterile dressing was applied. The patient tolerated the procedure well and there were no immediate complications. ESTIMATED BLOOD LOSS: Less than 5 mL COMPLICATIONS: None CONCLUSION: Successful PICC line insertion into the right basilic vein 0.2 minutes of fluoroscopy time was utilized for this procedure. Some fluoroscopic images are performed with last image hold technology. These images require no additional radiation. <Electronically signed by Birgit Pemberton > 06/23/20 1701 <Electronically signed by Tato Zamudio > 06/23/20 1715
[2020-06-23] MEDS ORDERED: SODIUM CHLORIDE 0.9% INJ 10 ML SYR IV PRN (17:45)
--- NOTE | 2020-06-23 17:47 | IPNPDOC ---
Text Note Date of Service The patient was seen on 06/23/20. NOTE Subjective: Vision was seen and examined this afternoon she was on her from playing a game. Tells me that the leg pain has now completely resolved. Has no complaints at this time and denies any fevers or chills. Been eating and having good bowel movements. Nurse reports no overnight events. Objective: Constitutional: Awake and alert, in no apparent distress. ENT: Sclera are clear. Mucosa is moist. Respiratory: Lungs CTA bilaterally. No respiratory distress. No use of accessory muscles. Cardiovascular: RRR S1 and S2 are normal, no murmur Gastrointestinal: Abdomen is soft, obese, non distended, non tender, BS present. Musculoskeletal: Right lower extremity no longer swollen and not painful Neurologic: No focal neurological deficit. Mental Status: A&O x3, normal affect Skin: Right lower extremity is bandaged with fresh lean dressing with no apparent leakage or discharge. Very little surrounding erythema left. The skin is no longer tender to palpation. Patient has been moving around the room and weightbearing with no issues. Assessment/plan: 59-year-old female past medical history of HTN, OA, asthma, MDD, DM, hypothyroidism, HLD, who had elective right total knee arthroplasty and revision on 04/28/20. Admitted by orthopedics for I&D after developing a hematoma secondary to trauma over her right knee. Patient also developed cellulitis on her right leg. Medicine team was consulted for medical management. # Right leg abscess near a revision total knee replacement surgical site: s/p I&D by ortho. # Right leg cellulitis/abscess: Elevate leg. Initially on IV vancomycin and ceftriaxone. Now just on ceftriaxone. Has PICC line in place Dr. Jimbo UNGER was consulted and patient will need IV antibiotics at home. Blood cultures. Wound cultures grew strep group G. leukocytosis resolved. CRP downtrended # Right lower extremity swelling: Now resolved. Likely 2/2 cellulitis. Duplex ultrasound negative for DVT. # Hypertension: Patient currently normotensive. Hold home meds for now. Monitor and titrate # Diabetes: Hold metformin while inpatient. ISS. Frequent Accu-Cheks. Hypoglycemic precautions. Diabetic diet # Hypothyroidism: Continue levothyroxine at home dose. # Asthma: duonebs when necessary # Hyperlipidemia: Continue statin # Anxiety and depression: Continue home meds # DVT prophylaxis per ortho A Yousef Hospitalist Edie SARGENT I+O Edie SARGENT I+O Laboratory Tests 06/23/20 06:28 Vital Signs Date Time Temp Pulse Resp B/P (MAP) Pulse Ox O2 Delivery O2 Flow Rate FiO2 06/23/20 16:52 81 18 98 Room Air 06/23/20 15:39 97.6 06/23/20 14:01 93/80 (84) I&O- Last 24 Hours up to 6 AM 06/23/20 06:00 Intake Total 2680 ml Output Total 1350 ml Balance 1330 ml SOHEILA QUIGLEY MD Jun 23, 2020 17:47
[2020-06-23] MEDS: SODIUM CHLORIDE 0.9% INJ 10 ML SYR IV SCH (18:22)
[2020-06-23] MEDS: TRIAMCINOLONE ACET 0.1% CREAM 80 GM TOP SCH (21:41)
[2020-06-23 22:00] VITALS: BP 105/68
[2020-06-24] MEDS: PERCOCET 5MG/325MG TAB PO PRN (00:31)
[2020-06-24] MEDS: SODIUM CHLORIDE 0.9% INJ 10 ML SYR IV SCH (05:54)
[2020-06-24] MEDS: LEVOTHYROXINE 100MCG TABLET (0.1MG) PO SCH (05:54)
[2020-06-24 06:00] VITALS: BP 101/64
[2020-06-24] MEDS: HumaLOG INSULIN (NovoLOG) PER UNIT SC SCH ×2 (07:30→12:00)
--- NOTE | 2020-06-24 07:53 | CR ---
DATE OF CONSULTATION: 06/23/2020 REQUESTING PHYSICIAN: Dr. Mckeon REASON FOR CONSULTATION: Evaluation of a below knee abscess in a patient who just recently underwent a right total knee redo arthroplasty. HISTORY OF PRESENT ILLNESS: Mrs. 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 She had resection of the arthroplasty with removal of the tibial, femoral and patellar components done by Dr. Jones. She had cement placement and had IV antibiotics with Rocephin 2 grams daily for 6 weeks. The patient had a follow up CRP on February 24 that was less than 0.3, ESR 49. She had a new knee placed on 04/27/20 and was doing well until she presented to Dr. Laws office complaining of some pain below the knee with a small abscess. She also had psoriatic lesions on her hands and feet with scaliness, redness, itching. PAST MEDICAL HISTORY: The patient's past medical history is significant for: * Osteoarthritis. * Hypertension. * Asthma. * Dyslipidemia. * Anxiety. * Depression. * Diabetes type 2. * Hypothyroidism. * Anemia. * Vitamin B-12 deficiency. PAST SURGICAL HISTORY: The patient's past surgical history is significant for: * Right redo total knee arthroplasty on 04/28/20. * First arthroplasty was done on 05/14/19 - right total knee arthroplasty and removal of the total knee on 01/19/20 for prosthetic joint infection with group G strep. * She has a plate and pin in the left foot. * Right total cuff surgery. * Rotator cuff surgery. * Bilateral carpal tunnel release. FAMILY HISTORY: Mother had end-stage renal disease, coronary artery disease, brother with colon cancer. SOCIAL HISTORY: She drinks alcohol socially. She lives alone. She does not smoke or use other drugs. She does not have any kids. She lives in [place] in an apartment and uses a cane as needed. REVIEW OF SYSTEMS: The patient complains of a rash on her hands and feet that it itching. No nausea, vomiting or diarrhea. No abdominal pain. No cough or shortness of breath. No chest pain. No dysuria or hematuria. She had mild knee pain that has improved. MEDICATIONS: * Ceftriaxone 2 grams IV q. 24 hours - currently day number three. * Atenolol 25 mg p.o. daily. * Vitamin D 1,000 units daily. * Vitamin B-12 500 mcg daily. * Lisinopril 2.5 mg p.o. daily. * Paxil 40 mg p.o. daily. * Zocor 20 mg p.o. daily. * Miralax one packet daily that she is refusing. * Milk of Magnesia daily. She is refusing. * Levothyroxine 100 mcg daily. * Morphine 2 mg IV q. 2 p.r.n. She has not taken any. * Percocet one tablet p.o. q. 4 p.r.n. for pain. PHYSICAL EXAMINATION: LABORATORY DATA: White count was 10.7 on admission and today it was 5.1. Hemoglobin 8.2, hematocrit 27.2, platelets 341, ESR 107. Sodium 142, potassium 4, chloride 108, bicarbonate 28, BUN 9, creatinine 0.84, glucose 79, calcium 8.4, CRP 2.44. Vancomycin trough was 23.3 on 06/22. COVID-19 was negative on 06/20. MRSA screen is pending. Blood cultures 06/20 two sets were no growth after 72 hours. Joint fluid aspiration was negative. Anaerobic culture was negative. Intraoperative culture was positive for group G strep from the abscess only. IMAGING DATA: Vascular ultrasound showed no DVT. PHYSICAL EXAMINATION: GENERAL APPEARANCE: She is a healthy looking female in no acute distress. VITAL SIGNS: Temperature is 97.6, pulse 77, respirations 18, blood pressure 93/80. O2 sat is 97% on room air. HEART: Normal S1, S2, no murmurs, rubs or gallops. LUNGS: Clear, no wheezes, rales or rhonchi. ABDOMEN: Soft, nontender, no hepatosplenomegaly, obese. BACK: No CVA or lumbosacral tenderness. EXTREMITIES: Trace edema bilaterally. She has plaqueing of both feet with scaling and erythema involving the whole plantar aspect of the foot. Both hands are erythematous with peeling skin. Both legs have some erythematous patches. Knee has familia in place. She has normal range of motion of her right knee. Below the knee there is an incision measuring about 3-4 cm with packing and mild purulent discharge. No surrounding cellulitis at this point. IMPRESSION: This is a 59-year-old female with history of prosthetic joint arthroplasty in April of 2019, infected in December of 2019, status post removal of the prosthesis and IV antibiotics for 6 weeks with group G strep infection, who is admitted with recurrent group G strep infection. At this point this is only an subcutaneous abscess that did not communicate to the knee joint but need to treat aggressively to avoid recurrent infection of knee prosthesis. Knee synovial fluid cultures were negative. The patient has extensive psoriasis of her hands and feet that is probably the portal of entry of these infections. PLAN: The patient needs to be seen by Dermatology as soon as possible. I have ordered Triamcinolone Cream 0.1% to be applied twice a day to hands and feet. Moisturizer cream. She will need IV Rocephin 2 grams q. 24 hours for at least 2 weeks. Lengths of therapy will depend on clinical improvement, but I would definitely keep her on oral suppressive therapy with Penicillin until her skin has completely healed and possibly up to a year. The case has been discussed with Alka Farrell, who is manager communication for Dermatology, who will be seeing the patient in the next week. The case has been discussed with Dr. Domenico Jones, who agrees with the plan. Echocardiogram was ordered. Follow up CRP, sed rate, ESR in the morning. MTDD
[2020-06-24] MEDS: PARoxetine 20 MG TAB PO SCH (08:33)
[2020-06-24] MEDS: SIMVASTATIN 20 MG TAB PO SCH (08:33)
[2020-06-24] MEDS: VITAMIN D 1,000 INTERNATIONAL UNITS TABLET PO SCH (08:33)
[2020-06-24] MEDS: LISINOPRIL *2.5 MG* TAB PO SCH (08:33)
[2020-06-24 08:34] VITALS: BP 101/64
[2020-06-24] MEDS: atenoloL 25 MG TAB PO SCH (08:34)
[2020-06-24] MEDS: TRIAMCINOLONE ACET 0.1% CREAM 80 GM TOP SCH (08:34)
[2020-06-24] MEDS: CYANOCOBALAMIN 500 MCG TAB PO SCH (08:34)
[2020-06-24] MEDS: cefTRIAXone SOD 2 GM in D5W MINI-BAG PLUS 50 ML IV SCH (12:15)
[2020-06-24 14:00] VITALS: BP 101/64
--- NOTE | 2020-06-25 07:19 | ECHO ---
DATE OF PROCEDURE: 06/24/2020 Age: 59 Gender: Female Height: 163 cm Weight: 83 kg REFERRING PHYSICIAN: Dr. Choi INDICATION: Heart murmur MEASUREMENTS: IVS 1.1 LV 4.9 LVPW 0.9 LA 3.5 Aorta 3.4 RV 2.1 IVC 1.7 Agatha E wave velocity 87, A wave 64 E prime septal 10.8 E prime lateral 10.4 FINDINGS: The study is of fair technical quality. The patient is in sinus rhythm. Normal LV size with preserved LV systolic function, estimated left ventricular ejection fraction (LVEF) about 65 to 70%. Right ventricle also appears to have normal size and systolic function. Both atria appear normal. Aortic valve was relatively poorly visualized, but it appears tricuspid and has normal mobility. Mitral valve also appears grossly normal based on very limited views. In parasternal axis view on 1 or 2 images there is a suspicion for potential vegetation on anterior mitral leaflet, but the quality of the image was very poor and I certainly cannot rule out that this represents only an artifact. Tricuspid valve appears normal. Pulmonic valve was not seen. No pericardial effusion is noted. Inferior vena cava is normal size. Aortic root is normal. Aortic arch and abdominal aorta were not well visualized. Doppler interrogation reveals competent aortic valve. There is mild mitral and trace tricuspid insufficiency. Calculated pulmonary artery pressure is within normal limits. Mitral inflow pattern and tissue Doppler imaging of the mitral annulus reveal normal diastolic function. CONCLUSIONS: 1. Study is of fair technical quality, underlying sinus rhythm. 2. Normal LV size with preserved LV systolic and diastolic function. 3. Normal aortic valve. 4. Mild mitral insufficiency, cannot completely rule out the presence of vegetation on anterior mitral leaflet. 5. Trace tricuspid insufficiency. 6. Unable to estimate central venous pressure. 7. Normal central venous pressure and likely pulmonary artery pressure. COMMENTS: If high clinical suspicion for bacterial endocarditis is present, then consider transesophageal echocardiogram for better visualization of mitral valve. [facility]
--- NOTE | 2020-07-01 07:41 | DS ---
DATE OF ADMISSION: 06/20/2020 DATE OF DISCHARGE: 06/24/2020 ATTENDING PHYSICIAN: Harsha Munoz M.D. ADMITTING DIAGNOSIS: Right knee/leg abscess. OTHER DIAGNOSES: Osteoarthritis, hypertension, asthma, elevated lipids, anxiety, depression, diabetes mellitus, hypothyroidism, anemia and B12 deficiency. DISCHARGE DIAGNOSES: Right leg/knee abscess; status post I and D on the right leg knee abscess. HISTORY: This is a 59-year-old female patient, who sustained a small injury to her right leg near her revision total knee replacement. Initially the area was treated on an outpatient basis, but it continued to worsen. Ultimately after review of the patient with infectious disease and Dr. Cottrell, their discussion ultimately decided at that point to I and D the abscess and do cultures at that point. So, she was admitted to the hospital and underwent the procedure on 06/20/2020. Operation performed was an I and D of the right leg/knee abscess and deep cultures. HOSPITAL COURSE: Patient was admitted on the day of surgery and underwent the above listed surgical procedure. It was well tolerated by the patient without incident. She was seen in the hospital by infectious disease, Dr. Choi, as well. The recommendation was for home antibiotics, that was arranged and she was set up for home antibiotics. It was also recommended she see dermatology on discharge. On the day of discharge, her symptoms had improved. Her pain was controlled and she had no fevers at that point. She will resume her preoperative medications and diet. She will use oral pain medications for pain control. She will use home I.V. antibiotics as directed through infectious disease department. She was given instructions to include but not limited to wound monitoring and activity limitations. She will follow-up in our office in 7 to 10 days. She will also follow-up with dermatology and also with infectious disease. Please refer to the medical record for further details. MARK
== END 2020-06-24 14:35 | disposition home health service (06) | DRG 603 ==
LOC: M ED 11:43 → M ED INP 12:18 → ENRESERV 12:53 → M MS5PR 13:45
PROVIDERS: ADMIT Orthopaedic Surgery; ATTEND Orthopaedic Surgery
PROC: 02HV33Z Insertion of Infusion Device into Superior Vena Cava, Percutaneous Approach (ICD-10-PCS; principal; 2020-06-23 15:00)
DX: L02.415 Cutaneous abscess of right lower limb (principal); L03.115 Cellulitis of right lower limb; S80.01XA Contusion of right knee, initial encounter; Z79.899 Other long term (current) drug therapy; Z96.651 Presence of right artificial knee joint; I10 Essential (primary) hypertension; J45.909 Unspecified asthma, uncomplicated; F41.9 Anxiety disorder, unspecified; E53.8 Deficiency of other specified B group vitamins; E03.9 Hypothyroidism, unspecified; E78.5 Hyperlipidemia, unspecified; M19.90 Unspecified osteoarthritis, unspecified site; F32.9 Major depressive disorder, single episode, unspecified; E11.9 Type 2 diabetes mellitus without complications; L40.8 Other psoriasis

== ENCOUNTER → 2020-06-20 | Outpatient (REF) | payer MEDICARE | LOC: M LAB REF 13:14 | PROVIDERS: ATTEND Orthopaedic Surgery | DX: Z96.651 Presence of right artificial knee joint (principal); M01.X61 Direct infection of right knee in infectious and parasitic diseases classified elsewhere ==

== ENCOUNTER → 2020-06-25 | Outpatient (REF) | payer MEDICARE ==
[~2020-06-25] MED LIST changes: +FISH10002 PO
[2020-06-25 14:47] LABS: HEMATOCRIT 28.9 % (36.0-47.0); HEMOGLOBIN 8.8 g/dl (12.0-15.5); MEAN CORPUSCULAR HGB CONC 30.4 g/dl (32.0-36.5); MEAN CORPUSCULAR VOLUME 85.3 fl (80.0-96.0); PLATELET COUNT, AUTOMATED 364 10^3/uL (150-450); RED BLOOD COUNT 3.39 10^6/uL (4.00-5.40); WHITE BLOOD COUNT 5.9 10^3/uL (4.0-10.0)
[2020-06-25 15:14] LABS: BLOOD UREA NITROGEN 12 MG/DL (7-18); C REACTIVE PROTEIN QUANTITATIV 1.39 MG/DL (0.00-0.30); CALCIUM LEVEL 8.5 MG/DL (8.5-10.1); CARBON DIOXIDE LEVEL 29 MEQ/L (21-32); CHLORIDE LEVEL 105 MEQ/L (98-107); CREATININE FOR GFR 0.88 MG/DL (0.55-1.30); GLOMERULAR FILTRATION RATE > 60.0 (>51); GLUCOSE, FASTING 90 MG/DL (70-100); SODIUM LEVEL 139 MEQ/L (136-145)
[2020-06-25 15:26] LABS: ERYTHROCYTE SEDIMENTATION RATE 124 mm/hr (0-30)
== END ==
LOC: M SHH 14:37
PROVIDERS: ATTEND Internal Medicine Infectious Disease
DX: M00.261 Other streptococcal arthritis, right knee (principal); E78.5 Hyperlipidemia, unspecified; I10 Essential (primary) hypertension; E11.9 Type 2 diabetes mellitus without complications

== ENCOUNTER → 2020-06-26 | Outpatient (REF) | payer MEDICARE ==
[~2020-06-26] MED LIST changes: +CYAN500T14 PO; -CYAN500T8 PO
== END ==
LOC: M SFHCPLAZ 13:19
PROVIDERS: ATTEND Physician Assistant
DX: L30.8 Other specified dermatitis (principal)
CPT/HCPCS: 87101; G0463

== ENCOUNTER → 2020-07-03 | Outpatient (REF) | payer MEDICARE ==
[~2020-07-03] MED LIST changes: -CYAN500T14 PO; +CYAN500T8 PO
[2020-07-03 15:58] LABS: HEMATOCRIT 34.4 % (36.0-47.0); HEMOGLOBIN 10.5 g/dl (12.0-15.5); MEAN CORPUSCULAR HEMOGLOBIN 26.3 pg (27.0-33.0); MEAN CORPUSCULAR HGB CONC 30.5 g/dl (32.0-36.5); PLATELET COUNT, AUTOMATED 359 10^3/uL (150-450)
[2020-07-03 16:17] LABS: ERYTHROCYTE SEDIMENTATION RATE 80 mm/hr (0-30)
[2020-07-03 16:24] LABS: BLOOD UREA NITROGEN 23 MG/DL (7-18); C REACTIVE PROTEIN QUANTITATIV 0.54 MG/DL (0.00-0.30); CALCIUM LEVEL 9.5 MG/DL (8.5-10.1); CARBON DIOXIDE LEVEL 30 MEQ/L (21-32); CHLORIDE LEVEL 102 MEQ/L (98-107); CREATININE FOR GFR 0.88 MG/DL (0.55-1.30); GLOMERULAR FILTRATION RATE > 60.0 (>51); GLUCOSE, FASTING 92 MG/DL (70-100); POTASSIUM SERUM 4.2 MEQ/L (3.5-5.1); SODIUM LEVEL 138 MEQ/L (136-145)
== END ==
LOC: M SHH 15:23
PROVIDERS: ATTEND Internal Medicine Infectious Disease
DX: M00.261 Other streptococcal arthritis, right knee (principal); E11.9 Type 2 diabetes mellitus without complications; E78.5 Hyperlipidemia, unspecified; I10 Essential (primary) hypertension

== ENCOUNTER → 2020-07-10 | Outpatient (REF) | payer MEDICARE ==
[2020-07-10 16:49] LABS: HEMATOCRIT 33.9 % (36.0-47.0); HEMOGLOBIN 10.2 g/dl (12.0-15.5); MEAN CORPUSCULAR HEMOGLOBIN 26.2 pg (27.0-33.0); MEAN CORPUSCULAR HGB CONC 30.1 g/dl (32.0-36.5); MEAN CORPUSCULAR VOLUME 86.9 fl (80.0-96.0); PLATELET COUNT, AUTOMATED 287 10^3/uL (150-450); WHITE BLOOD COUNT 5.4 10^3/uL (4.0-10.0)
[2020-07-10 17:01] LABS: BLOOD UREA NITROGEN 21 MG/DL (7-18); C REACTIVE PROTEIN QUANTITATIV 0.85 MG/DL (0.00-0.30); CARBON DIOXIDE LEVEL 30 MEQ/L (21-32); CHLORIDE LEVEL 103 MEQ/L (98-107); CREATININE FOR GFR 0.88 MG/DL (0.55-1.30); GLOMERULAR FILTRATION RATE > 60.0 (>51); GLUCOSE, FASTING 79 MG/DL (70-100); POTASSIUM SERUM 4.5 MEQ/L (3.5-5.1); SODIUM LEVEL 138 MEQ/L (136-145)
[2020-07-10 17:42] LABS: ERYTHROCYTE SEDIMENTATION RATE 67 mm/hr (0-30)
== END ==
LOC: M SHH 16:16
PROVIDERS: ATTEND Internal Medicine Infectious Disease
DX: E78.5 Hyperlipidemia, unspecified (principal); I10 Essential (primary) hypertension

== ENCOUNTER → 2020-07-16 | Outpatient (REF) | payer MEDICARE ==
[2020-07-16 17:49] LABS: HEMOGLOBIN 10.3 g/dl (12.0-15.5); MEAN CORPUSCULAR HEMOGLOBIN 26.5 pg (27.0-33.0); MEAN CORPUSCULAR HGB CONC 30.3 g/dl (32.0-36.5); MEAN CORPUSCULAR VOLUME 87.6 fl (80.0-96.0); PLATELET COUNT, AUTOMATED 277 10^3/uL (150-450); RED BLOOD COUNT 3.88 10^6/uL (4.00-5.40)
[2020-07-16 18:12] LABS: BLOOD UREA NITROGEN 21 MG/DL (7-18); C REACTIVE PROTEIN QUANTITATIV 0.34 MG/DL (0.00-0.30); CALCIUM LEVEL 8.9 MG/DL (8.5-10.1); CARBON DIOXIDE LEVEL 32 MEQ/L (21-32); CHLORIDE LEVEL 104 MEQ/L (98-107); CREATININE FOR GFR 0.91 MG/DL (0.55-1.30); GLOMERULAR FILTRATION RATE > 60.0 (>51); GLUCOSE, FASTING 97 MG/DL (70-100); POTASSIUM SERUM 4.9 MEQ/L (3.5-5.1); SODIUM LEVEL 140 MEQ/L (136-145)
[2020-07-16 18:19] LABS: ERYTHROCYTE SEDIMENTATION RATE 59 mm/hr (0-30)
== END ==
LOC: M SHH 17:15
PROVIDERS: ATTEND Internal Medicine Infectious Disease
DX: M00.2 Other streptococcal arthritis and polyarthritis (principal); E11.9 Type 2 diabetes mellitus without complications; E78.5 Hyperlipidemia, unspecified; I10 Essential (primary) hypertension

== ENCOUNTER → 2020-08-14 | Outpatient (REF) | payer MEDICARE, MEDICAID ==
[~2020-08-14] MED LIST changes: +CYAN500T14 PO; -CYAN500T8 PO
[2020-08-14 14:06] LABS: BASO # 0.1 10^3/uL (0.0-0.2); BASO % 1.1 % (0.0-1.0); EOS # 0.4 10^3/uL (0.0-0.5); EOS % 6.3 % (0.0-3.0); HEMOGLOBIN 11.7 g/dl (12.0-15.5); LYMPH # 1.6 10^3/uL (1.5-5.0); LYMPH % 25.8 % (24.0-44.0); MEAN CORPUSCULAR HGB CONC 31.6 g/dl (32.0-36.5); MEAN CORPUSCULAR VOLUME 85.5 fl (80.0-96.0); MONO # 0.8 10^3/uL (0.0-0.8); MONO % 12.2 % (0.0-5.0); NEUTROPHILS # 3.4 10^3/uL (1.5-8.5); NEUTROPHILS % 54.3 % (36.0-66.0); PLATELET COUNT, AUTOMATED 278 10^3/uL (150-450); RED BLOOD COUNT 4.33 10^6/uL (4.00-5.40); WHITE BLOOD COUNT 6.2 10^3/uL (4.0-10.0)
[2020-08-14 14:39] LABS: ERYTHROCYTE SEDIMENTATION RATE 45 mm/hr (0-30)
== END ==
LOC: M SFHCPLAZ 09:58
PROVIDERS: ATTEND Internal Medicine Infectious Disease
DX: T84.59XD Infection and inflammatory reaction due to other internal joint prosthesis, subsequent encounter (principal)
CPT/HCPCS: 36415; 85025; 85652; 86140; G0463

== ENCOUNTER → 2020-09-04 | Outpatient (REF) | payer MEDICARE, MEDICAID ==
[2020-09-04 11:10] LABS: BASO # 0.1 10^3/uL (0.0-0.2); BASO % 1.2 % (0.0-1.0); EOS # 0.4 10^3/uL (0.0-0.5); EOS % 6.3 % (0.0-3.0); HEMATOCRIT 35.6 % (36.0-47.0); HEMOGLOBIN 10.8 g/dl (12.0-15.5); LYMPH # 1.6 10^3/uL (1.5-5.0); LYMPH % 26.4 % (24.0-44.0); MEAN CORPUSCULAR HEMOGLOBIN 26.3 pg (27.0-33.0); MEAN CORPUSCULAR HGB CONC 30.3 g/dl (32.0-36.5); MEAN CORPUSCULAR VOLUME 86.6 fl (80.0-96.0); MONO # 0.7 10^3/uL (0.0-0.8); NEUTROPHILS # 3.3 10^3/uL (1.5-8.5); NEUTROPHILS % 53.8 % (36.0-66.0); PLATELET COUNT, AUTOMATED 249 10^3/uL (150-450); RED BLOOD COUNT 4.11 10^6/uL (4.00-5.40); WHITE BLOOD COUNT 6.1 10^3/uL (4.0-10.0)
[2020-09-04 11:40] LABS: ERYTHROCYTE SEDIMENTATION RATE 43 mm/hr (0-30)
== END ==
LOC: M SFHCPLAZ 10:02
PROVIDERS: ATTEND Internal Medicine Infectious Disease
DX: L03.115 Cellulitis of right lower limb (principal)
CPT/HCPCS: 36415; 85025; 85652; 86140; G0463

== ENCOUNTER → 2021-04-21 | Outpatient (REF) | payer MEDICARE, MEDICAID ==
[~2021-04-21] MED LIST changes: -LISI2.5T2 PO; +LISI2.5T9 PO
== END ==
LOC: M SFHCWAGY 12:55
PROVIDERS: ATTEND Internal Medicine Infectious Disease
DX: L03.115 Cellulitis of right lower limb (principal)
CPT/HCPCS: 87070; 87077; 87186; G0463

== ENCOUNTER → 2021-04-27 | Outpatient (CLI) | payer MEDICARE, MEDICAID ==
--- NOTE | 2021-04-27 09:03 | REP ---
INDICATION: ULCERATION/CELLULITIS COMPARISON: None. TECHNIQUE: AP and lateral views right tibia/fibula FINDINGS: Prior knee replacement. Remains essentially stable as compared with 04/28/2020 knee examination. There is no evidence for acute fracture or dislocation. There is significant soft tissue swelling surrounding the knee along with suspected joint effusion. Increased calcifications and heterotopic ossification is appreciated. No subcutaneous emphysema identified. IMPRESSION: Significant soft tissue swelling and suspected effusion at the knee. Underlying infectious process cannot be excluded. No evidence for subcutaneous emphysema. No acute fracture or dislocation. <Electronically signed by Ancelmo Ann > 04/27/21 [id number]
== END ==
LOC: M RAD 08:19
PROVIDERS: ATTEND Family Medicine
DX: L03.115 Cellulitis of right lower limb (principal)

== ENCOUNTER → 2021-06-08 | Outpatient (CLI) | payer MEDICARE, MEDICAID ==
[2021-06-08 12:39] LABS: BASO # 0.1 10^3/uL (0.0-0.2); BASO % 1.1 % (0.0-1.0); EOS # 0.3 10^3/uL (0.0-0.5); EOS % 4.9 % (0.0-3.0); HEMATOCRIT 29.6 % (36.0-47.0); HEMOGLOBIN 9.1 g/dl (12.0-15.5); LYMPH # 1.3 10^3/uL (1.5-5.0); LYMPH % 22.8 % (24.0-44.0); MEAN CORPUSCULAR HEMOGLOBIN 26.9 pg (27.0-33.0); MEAN CORPUSCULAR HGB CONC 30.7 g/dl (32.0-36.5); MEAN CORPUSCULAR VOLUME 87.6 fl (80.0-96.0); MONO # 0.7 10^3/uL (0.0-0.8); MONO % 12.5 % (2.0-8.0); NEUTROPHILS # 3.3 10^3/uL (1.5-8.5); PLATELET COUNT, AUTOMATED 286 10^3/uL (150-450); RED BLOOD COUNT 3.38 10^6/uL (4.00-5.40); WHITE BLOOD COUNT 5.7 10^3/uL (4.0-10.0)
[2021-06-08 13:05] LABS: ERYTHROCYTE SEDIMENTATION RATE > 140 mm/hr (0-30)
== END ==
LOC: M LAB 09:53
PROVIDERS: ATTEND Orthopaedic Surgery
DX: M25.561 Pain in right knee (principal)

== ENCOUNTER → 2021-07-13 | Outpatient (CLI) | payer MEDICARE, MEDICAID ==
[2021-07-13 14:35] LABS: BASO # 0.1 10^3/uL (0.0-0.2); BASO % 1.1 % (0.0-1.0); EOS # 0.3 10^3/uL (0.0-0.5); HEMATOCRIT 32.6 % (36.0-47.0); LYMPH # 1.6 10^3/uL (1.5-5.0); LYMPH % 21.9 % (24.0-44.0); MEAN CORPUSCULAR HGB CONC 30.7 g/dl (32.0-36.5); MEAN CORPUSCULAR VOLUME 87.9 fl (80.0-96.0); MONO # 0.8 10^3/uL (0.0-0.8); MONO % 11.4 % (2.0-8.0); NEUTROPHILS # 4.5 10^3/uL (1.5-8.5); NEUTROPHILS % 61.2 % (36.0-66.0); PLATELET COUNT, AUTOMATED 322 10^3/uL (150-450); RED BLOOD COUNT 3.71 10^6/uL (4.00-5.40); WHITE BLOOD COUNT 7.3 10^3/uL (4.0-10.0)
[2021-07-13 15:01] LABS: C REACTIVE PROTEIN QUANTITATIV 3.19 MG/DL (0.00-0.30); CALCIUM LEVEL 9.7 MG/DL (8.8-10.2); CREATININE FOR GFR 1.14 MG/DL (0.55-1.30); GLOMERULAR FILTRATION RATE 51.8 (>45); PERCENT SATURATION 11.1 % (13.2-45.0); POTASSIUM SERUM 4.9 MEQ/L (3.5-5.1)
[2021-07-13 15:08] LABS: FOLATE 17.5 NG/ML
[2021-07-13 15:47] LABS: ERYTHROCYTE SEDIMENTATION RATE 105 mm/hr (0-30)
== END ==
LOC: M PLALAB 11:10
PROVIDERS: ATTEND Internal Medicine Infectious Disease
DX: T84.59XD Infection and inflammatory reaction due to other internal joint prosthesis, subsequent encounter (principal); D64.9 Anemia, unspecified; E11.9 Type 2 diabetes mellitus without complications
CPT/HCPCS: 36415; 80048; 82607; 82746; 83550; 85025; 85652; 86140; G0463

== ENCOUNTER → 2021-08-11 | Outpatient (CLI) | payer MEDICARE, MEDICAID ==
--- NOTE | 2021-08-11 13:32 | REP ---
INDICATION: PAIN IN RT KNEE. COMPARISON: 01/15/2020 TECHNIQUE/RADIOTRACER AND DOSE: After the intravenous administration of 21.5 mCi of technetium 99 M MDP a triple phase bone scan of the knees was obtained with attention to the right knee. FINDINGS: Once again, there is increased activity seen in the right knee on the flow portion of the exam. Once again, there is increased activity seen in the right knee Leah prostatic region on the blood pool images. The level of activity, however, does appear to have decreased compared to the prior exam. Delayed imaging again shows increased activity in the right knee periprosthetic bone. IMPRESSION: Once again, there is increased activity seen in the right knee on all 3 phases as described above. Prosthetic loosening versus infection. Correlate clinically. <Electronically signed by [place] > 08/11/21 [id number]
== END ==
LOC: M RAD 08:25
PROVIDERS: ATTEND Orthopaedic Surgery
DX: M25.561 Pain in right knee (principal)
CPT/HCPCS: 78315; A9503

== ENCOUNTER → 2021-10-27 | Outpatient (CLI) | payer MEDICARE ==
[~2021-10-27] MED LIST changes: -D31000TA2 PO; +VITA100093 PO
[2021-10-27 13:00] LABS: BASO # 0.1 10^3/uL (0.0-0.2); BASO % 0.8 % (0.0-1.0); EOS # 0.4 10^3/uL (0.0-0.5); HEMOGLOBIN 9.8 g/dl (12.0-15.5); LYMPH # 1.8 10^3/uL (1.5-5.0); LYMPH % 23.8 % (24.0-44.0); MEAN CORPUSCULAR HEMOGLOBIN 26.9 pg (27.0-33.0); MEAN CORPUSCULAR HGB CONC 30.6 g/dl (32.0-36.5); MEAN CORPUSCULAR VOLUME 87.9 fl (80.0-96.0); MONO # 0.8 10^3/uL (0.0-0.8); MONO % 11.1 % (2.0-8.0); NEUTROPHILS # 4.3 10^3/uL (1.5-8.5); PLATELET COUNT, AUTOMATED 277 10^3/uL (150-450); RED BLOOD COUNT 3.64 10^6/uL (4.00-5.40); WHITE BLOOD COUNT 7.4 10^3/uL (4.0-10.0)
[2021-10-27 14:03] LABS: ERYTHROCYTE SEDIMENTATION RATE 79 mm/hr (0-30)
== END ==
LOC: M PLALAB 10:33
PROVIDERS: ATTEND Internal Medicine Infectious Disease
DX: T84.59XD Infection and inflammatory reaction due to other internal joint prosthesis, subsequent encounter (principal)

== ENCOUNTER → 2022-03-08 | Outpatient (CLI) | payer MEDICARE, MEDICAID, OTHER ==
[2022-03-08 13:09] LABS: BASO # 0.1 10^3/uL (0.0-0.2); BASO % 1.2 % (0.0-1.0); EOS # 0.5 10^3/uL (0.0-0.5); EOS % 6.1 % (0.0-3.0); HEMATOCRIT 32.1 % (36.0-47.0); HEMOGLOBIN 9.7 g/dl (12.0-15.5); LYMPH # 1.7 10^3/uL (1.5-5.0); LYMPH % 22.9 % (24.0-44.0); MEAN CORPUSCULAR HEMOGLOBIN 27.1 pg (27.0-33.0); MEAN CORPUSCULAR HGB CONC 30.2 g/dl (32.0-36.5); MEAN CORPUSCULAR VOLUME 89.7 fl (80.0-96.0); MONO # 0.8 10^3/uL (0.0-0.8); MONO % 10.2 % (2.0-8.0); NEUTROPHILS # 4.5 10^3/uL (1.5-8.5); NEUTROPHILS % 59.2 % (36.0-66.0); PLATELET COUNT, AUTOMATED 241 10^3/uL (150-450); RED BLOOD COUNT 3.58 10^6/uL (4.00-5.40); WHITE BLOOD COUNT 7.6 10^3/uL (4.0-10.0)
[2022-03-08 13:34] LABS: ERYTHROCYTE SEDIMENTATION RATE 70 mm/hr (0-30)
== END ==
LOC: M PLALAB 09:20 → M LAB 09:20
PROVIDERS: ATTEND Internal Medicine Infectious Disease
DX: A49.01 Methicillin susceptible Staphylococcus aureus infection, unspecified site (principal)

== ENCOUNTER → 2022-06-08 | Outpatient (CLI) | payer OTHER, MEDICAID ==
[2022-06-08 14:26] LABS: BASO # 0.1 10^3/uL (0.0-0.2); BASO % 0.9 % (0.0-1.0); EOS # 0.5 10^3/uL (0.0-0.5); EOS % 5.1 % (0.0-3.0); HEMATOCRIT 32.1 % (36.0-47.0); LYMPH # 1.7 10^3/uL (1.5-5.0); LYMPH % 18.7 % (24.0-44.0); MEAN CORPUSCULAR HGB CONC 31.2 g/dl (32.0-36.5); MEAN CORPUSCULAR VOLUME 89.9 fl (80.0-96.0); MONO # 1.1 10^3/uL (0.0-0.8); MONO % 12.1 % (2.0-8.0); NEUTROPHILS # 5.8 10^3/uL (1.5-8.5); NEUTROPHILS % 62.8 % (36.0-66.0); PLATELET COUNT, AUTOMATED 267 10^3/uL (150-450); RED BLOOD COUNT 3.57 10^6/uL (4.00-5.40); WHITE BLOOD COUNT 9.2 10^3/uL (4.0-10.0)
[2022-06-08 15:10] LABS: C REACTIVE PROTEIN QUANTITATIV 1.23 MG/DL (0.00-0.30); CALCIUM LEVEL 9.1 MG/DL (8.8-10.2); CREATININE FOR GFR 1.37 MG/DL (0.55-1.30); GLOMERULAR FILTRATION RATE 41.7 (>45); PERCENT SATURATION 11.8 % (13.2-45.0); POTASSIUM SERUM 4.3 MEQ/L (3.5-5.1)
[2022-06-08 15:15] LABS: ERYTHROCYTE SEDIMENTATION RATE 70 mm/hr (0-30)
== END ==
LOC: M PLALAB 09:48
PROVIDERS: ATTEND Internal Medicine Infectious Disease
DX: T84.59XD Infection and inflammatory reaction due to other internal joint prosthesis, subsequent encounter (principal); D50.9 Iron deficiency anemia, unspecified

== ENCOUNTER → 2023-01-03 | Outpatient (CLI) | payer MEDICARE ==
[2023-01-03 11:53] LABS: BASO # 0.1 10^3/uL (0.0-0.2); EOS # 0.6 10^3/uL (0.0-0.5); EOS % 7.6 % (0.0-3.0); HEMATOCRIT 32.5 % (36.0-47.0); HEMOGLOBIN 10.1 g/dl (12.0-15.5); LYMPH # 1.6 10^3/uL (1.5-5.0); LYMPH % 19.6 % (24.0-44.0); MEAN CORPUSCULAR HEMOGLOBIN 28.2 pg (27.0-33.0); MEAN CORPUSCULAR HGB CONC 31.1 g/dl (32.0-36.5); MEAN CORPUSCULAR VOLUME 90.8 fl (80.0-96.0); MONO # 0.8 10^3/uL (0.0-0.8); NEUTROPHILS # 4.9 10^3/uL (1.5-8.5); NEUTROPHILS % 61.3 % (36.0-66.0); PLATELET COUNT, AUTOMATED 267 10^3/uL (150-450); RED BLOOD COUNT 3.58 10^6/uL (4.00-5.40); WHITE BLOOD COUNT 8.1 10^3/uL (4.0-10.0)
[2023-01-03 12:09] LABS: ERYTHROCYTE SEDIMENTATION RATE 103 mm/hr (0-30)
== END ==
LOC: M PLALAB 08:53
PROVIDERS: ATTEND Internal Medicine Infectious Disease
DX: A49.01 Methicillin susceptible Staphylococcus aureus infection, unspecified site (principal)

== ENCOUNTER → 2023-08-04 | Outpatient (CLI) | payer MEDICARE | LOC: M WUC 12:04 | PROVIDERS: ATTEND Family Medicine | DX: R06.00 Dyspnea, unspecified (principal); E11.9 Type 2 diabetes mellitus without complications; E78.5 Hyperlipidemia, unspecified ==

== ENCOUNTER → 2023-11-03 | Outpatient (CLI) | payer MEDICARE, MEDICAID ==
[~2023-11-03] MED LIST changes: +CALC0.0017 TOP; -CALC0.009 TOP
[2023-11-03 11:19] LABS: BASO # 0.1 10^3/uL (0.0-0.2); BASO % 0.9 % (0.0-1.0); EOS # 0.5 10^3/uL (0.0-0.5); EOS % 5.5 % (0.0-3.0); HEMATOCRIT 33.4 % (36.0-47.0); HEMOGLOBIN 10.7 g/dl (12.0-15.5); LYMPH # 1.7 10^3/uL (1.5-5.0); LYMPH % 18.2 % (24.0-44.0); MEAN CORPUSCULAR HEMOGLOBIN 28.8 pg (27.0-33.0); MEAN CORPUSCULAR VOLUME 89.8 fl (80.0-96.0); MONO % 10.8 % (2.0-8.0); NEUTROPHILS % 64.3 % (36.0-66.0); PLATELET COUNT, AUTOMATED 263 10^3/uL (150-450); RED BLOOD COUNT 3.72 10^6/uL (4.00-5.40); WHITE BLOOD COUNT 9.3 10^3/uL (4.0-10.0)
[2023-11-03 11:25] LABS: ERYTHROCYTE SEDIMENTATION RATE 61 mm/hr (0-30)
== END ==
LOC: M WUC 09:21
PROVIDERS: ATTEND Internal Medicine Infectious Disease
DX: A49.01 Methicillin susceptible Staphylococcus aureus infection, unspecified site (principal)

== ENCOUNTER → 2023-11-03 | Outpatient (CLI) | payer MEDICARE, MEDICAID ==
[2023-11-03 11:54] LABS: ALBUMIN 4.1 G/DL (3.2-5.2); BILIRUBIN,TOTAL 0.4 MG/DL (0.3-1.2); CALCIUM LEVEL 8.6 MG/DL (8.3-10.6); CHOLESTEROL RISK RATIO 3.46 (<5); CREATININE FOR GFR 1.25 MG/DL (0.55-1.30); GLOMERULAR FILTRATION RATE 46.1 (>45); HDL CHOLESTEROL 36.9 MG/DL (>40); LDL CHOLESTEROL 70.5 MG/DL (<100); NON-HDL-C 91.1 MG/DL; POTASSIUM SERUM 4.6 MMOL/L (3.5-5.1); TOTAL PROTEIN 7.6 G/DL (5.7-8.2)
[2023-11-03 11:55] LABS: THYROID STIMULATING HORMONE 0.501 uIU/ML (0.55-4.78)
[2023-11-03 11:56] LABS: HEMOGLOBIN A1c 5.9 % (4.0-6.0)
== END ==
LOC: M WUC 09:23
PROVIDERS: ATTEND Family Medicine
DX: E03.9 Hypothyroidism, unspecified (principal); E11.9 Type 2 diabetes mellitus without complications; I10 Essential (primary) hypertension; A49.01 Methicillin susceptible Staphylococcus aureus infection, unspecified site

== ENCOUNTER 2024-01-25 11:28 | Day surgery (SDC) | payer MEDICARE, MEDICAID ==
[~2024-01-25] VITALS: Ht 157.5 cm; Wt 96.2 kg
[~2024-01-25 11:28] MED LIST changes: +PHENYLEPHRINE 10% OPHTH SOL 5ML OS PRN
[2024-01-25] MEDS ORDERED: INSULIN LISPRO (NovoLOG) PER UNIT SC PRN (13:50)
[2024-01-25] MEDS ORDERED: GLUCOSE 4 GM CHEW PO PRN (13:50)
[2024-01-25] MEDS ORDERED: GLUCAGON INJ 1MG VIAL SC PRN (13:50)
[2024-01-25] MEDS ORDERED: DEXTROSE 50% 50ML SYRINGE IV PRN (13:50)
[2024-01-25] MEDS ORDERED: ASPI81CH33 PO (13:53)
[2024-01-25] MEDS: OFLOXACIN 0.3 % (OCUFLOX) OPTH SOL 5ML OS ONE (13:54)
[2024-01-25] MEDS: PHENYLEPHRINE 2.5% OPHTH SOL 2ML OS SCH (13:55)
[2024-01-25] MEDS: TROPICAMIDE 1% OPHTH SOLN 15ML OS SCH (13:55)
[2024-01-25] MEDS: LIDOCAINE 3.5 % 1ML OPHTH TOPICAL GEL OU ONE (13:55)
[2024-01-25] MEDS: ATROPINE SULFATE 1% OPHTH SOLN 2ML BTL OS SCH (13:55)
[2024-01-25] MEDS ORDERED: MIDAZOLAM INJ 2MG/2ML VIAL As Ordered ONE (14:34)
[2024-01-25] MEDS ORDERED: fentaNYL 100 MCG/2 ML INJECTION As Ordered ONE (14:34)
[2024-01-25] MEDS: CEFUROXIME 1MG/0.1ML INTRACAMERAL INJ As Ordered ONE (15:00)
[2024-01-25] MEDS: BSS IRRIG/VANCO(10MG)/TOBRA(5MG)/EPINEPH(1:1000-0.5CC)500ML BAG-ORONLY As Ordered ONE (15:00)
[2024-01-25] MEDS: LIDOCAINE 1% SDV 5ML VIAL As Ordered ONE (15:00)
[2024-01-25 15:09] VITALS: BP 132/63; TEMP 97.9; O2SAT 96
== END 2024-01-25 15:28 | disposition home or self-care (01) ==
LOC: M SDC 11:28
PROVIDERS: ATTEND Ophthalmology
DX: H25.12 Age-related nuclear cataract, left eye (principal); I10 Essential (primary) hypertension; E78.5 Hyperlipidemia, unspecified; E11.9 Type 2 diabetes mellitus without complications; E03.9 Hypothyroidism, unspecified; F41.9 Anxiety disorder, unspecified; F32.A Depression, unspecified; Z79.899 Other long term (current) drug therapy; Z79.84 Long term (current) use of oral hypoglycemic drugs; Z79.82 Long term (current) use of aspirin
CPT/HCPCS: 66984; J0697; J2250; J3010; V2632

== ENCOUNTER 2024-02-01 09:18 | Day surgery (SDC) | payer MEDICARE, MEDICAID ==
[~2024-02-01] VITALS: Ht 165.1 cm; Wt 95.8 kg
[~2024-02-01 09:18] MED LIST changes: +ASPI81CH33 PO; +PHENYLEPHRINE 10% OPHTH SOL 5ML OD PRN; -PHENYLEPHRINE 10% OPHTH SOL 5ML OS PRN
[2024-02-01] MEDS ORDERED: MIDAZOLAM INJ 2MG/2ML VIAL As Ordered ONE (10:20)
[2024-02-01] MEDS ORDERED: fentaNYL 100 MCG/2 ML INJECTION As Ordered ONE (10:21)
[2024-02-01] MEDS: PHENYLEPHRINE 2.5% OPHTH SOL 2ML OD SCH (10:30)
[2024-02-01] MEDS: TROPICAMIDE 1% OPHTH SOLN 15ML OD SCH (10:30)
[2024-02-01] MEDS: ATROPINE SULFATE 1% OPHTH SOLN 2ML BTL OD SCH (10:30)
[2024-02-01] MEDS: LIDOCAINE 3.5 % 1ML OPHTH TOPICAL GEL OU ONE (10:30)
[2024-02-01] MEDS: OFLOXACIN 0.3 % (OCUFLOX) OPTH SOL 5ML OD ONE (10:30)
[2024-02-01] MEDS: BSS IRRIG/VANCO(10MG)/TOBRA(5MG)/EPINEPH(1:1000-0.5CC)500ML BAG-ORONLY As Ordered ONE (11:09)
[2024-02-01] MEDS: LIDOCAINE 1% SDV 5ML VIAL As Ordered ONE (11:09)
[2024-02-01] MEDS: CEFUROXIME 1MG/0.1ML INTRACAMERAL INJ As Ordered ONE (11:10)
[2024-02-01 11:19] VITALS: BP 136/67; TEMP 97.1; O2SAT 98
== END 2024-02-01 11:34 | disposition home or self-care (01) ==
LOC: M SDC 09:18
PROVIDERS: ATTEND Ophthalmology
DX: E11.36 Type 2 diabetes mellitus with diabetic cataract (principal); H25.11 Age-related nuclear cataract, right eye; I10 Essential (primary) hypertension; E78.00 Pure hypercholesterolemia, unspecified; E03.9 Hypothyroidism, unspecified; Z79.899 Other long term (current) drug therapy; Z79.890 Hormone replacement therapy; Z79.82 Long term (current) use of aspirin
CPT/HCPCS: 66984; J0697; J2250; J3010; V2632